=== PATIENT | male | born 1965 | race Caucasian/White ===

== ENCOUNTER 2023-09-05 22:48 | Inpatient (IN) | payer MEDICARE, OTHER, SELFPAY ==
[2023-09-05 19:23] VITALS: BP 147/80; BMI 25.4
[2023-09-05 19:45] LABS: % Basophils 0.6 % (0-2); % Immature Granulocytes 0.2 % (0-0.5); % Lymphocytes 7.2 % (20.5-51.1); % Monocytes 10.7 % (1.7-9.3); % Neutrophils 75.3 % (42.2-75.2); Absolute Eosinophils 0.3 10^3/uL (0-0.7); Absolute Lymphocytes 0.3 10^3/uL (1.2-3.4); Absolute Monocytes 0.5 10^3/uL (0.1-0.6); Absolute Neutrophils 3.5 10^3/uL (1.4-6.5); Hematocrit 24.2 % (39.0-52.0); Hemoglobin 7.9 g/dL (13.0-18.0); Mean Corp Hgb Conc. 32.6 g/dL (33.0-37.0); Mean Corpuscular Hgb 30.3 pg (27.0-31.0); Mean Corpuscular Volume 92.7 fL (80.0-94.0); Mean Platelet Volume 10.6 fL (7.4-10.4); Nucleated Red Blood Cells % 0 % (-); Platelet Count 151 10^3/uL (130-400); Red Blood Cell Count 2.61 10^6/uL (4.70-6.10); Red Cell Dist. Width 14.1 % (11.5-14.5); White Blood Cell Count 4.7 10^3/uL (4.8-10.8)
[2023-09-05 20:04] LABS: ALT (SGPT) 33 U/L (0-50); AST (SGOT) 71 U/L (17-59); Albumin 3.6 g/dl (3.5-5.0); Alkaline Phosphatase 785 U/L (38-126); Blood Urea Nitrogen 44 mg/dl (9-20); Calcium 4.7 mg/dl (8.4-10.2); Carbon Dioxide 24 mmol/L (22-30); Chloride 105 mmol/L (98-107); Estimated Creatinine Clearance 26 ml/min; Glucose 112 mg/dl (70-99); Lipase 35 U/L (23-300); Magnesium 1.3 mg/dl (1.6-2.3); Potassium 4.7 mmol/L (3.5-5.1); Sodium 135 mmol/L (135-145); Total Bilirubin 0.7 mg/dl (0.2-1.3); Total Protein 6.1 g/dl (6.3-8.2); eGFR 21.47
--- NOTE | 2023-09-05 20:55 | ED.GENMED ---
History of Present Illness
General
Chief Complaint: Abnormal Lab Value
Source: patient
Exam Limitations: none
Time Seen by Provider: 09/05/23 20:28
Travel History
Have you had any contact with someone who has COVID-19?: No
Do you have any symptoms of coronavirus? Fever > 100 degrees, chills, cough, shortness of breath, sore throat, loss of taste or smell, muscle aches, or headache?: No
History of Present Illness
History of Present Illness:
58-year-old male with a history of chronic kidney disease, cirrhosis, portal vein thrombosis, CHF, hypertension who presents with abnormal labs. He was told to come the emergency department due to severe hypocalcemia. Patient states he is not on
dialysis but he is being checked for placement of a fistula. Otherwise patient offers no current complaints.
Past History
Past History
ED Past Medical History: HTN, Psychiatric (Anxiety), Other (TRAVIS cirrhosis, hepatic encephalopathy, portal hypertension, ascites, esophageal varices status post banding, chronic right-sided abdominal pain on pain management, portal vein thrombosis,
nonocclusive SMV thrombus,) and Other (Chronic abd pain, Chronic renal failure, Anemia)
ED Past Surgical History: Appendectomy, Orthopedic (Right leg surgery, Right shoulder surgery, ) and Other (Hernia repair X 3, Liver Transplant, Subdural hematoma with surgery)
Social History
Tobacco: Former smoker
Alcohol: None
Drug: None and Marijuana
Personal:
Living: with family
Employment: Not employed
Family History
Family History: Other
Phy Exam
Physical Exam
Physical Exam:
CONSTITUTIONAL Patient alert and oriented to person, place and time. Well-appearing. Vital signs reviewed.
HEAD atraumatic, normocephalic.
EYES eyelids normal to inspection, Pupils equally round and reactive to light, Extraocular muscles intact, Conjunctiva normal, Sclera normal.
NECK normal range of motion, Trachea midline, no jugular venous distention.
RESPIRATORY CHEST No respiratory distress noted, Chest expansion equal, Bilateral breath sounds clear.
CARDIOVASCULAR regular rate and rhythm, Heart sounds normal.
ABDOMEN abdomen nontender, Bowel sounds normal. No distention.
BACK normal inspection, no obvious deformities
UPPER EXTREMITY range of motion normal, Motor strength normal, no cyanosis, no edema.
LOWER EXTREMITY range of motion normal, Motor strength normal, no cyanosis, bilateral left greater than right edema (patient states he has been evaluated by ultrasound of the left lower extremity and unknown as to why it is more swollen than the
right).
NEURO Speech normal, No focal motor deficits, [place] coma scale 15, Memory normal, Cranial Nerves intact to screening exam.
SKIN skin warm, dry, and normal in color.
PSYCHIATRIC patient oriented to person place and time, Normal affect.
Course
Orders/Labs/Results
Orders:
Orders
09/05/23 Breakfast
Regular
At Your Request: Full Participation
Does patient need a safe tray?: No
Fluid Restriction: 1440 mL/day (48 oz)
09/05/23 19:27
EKG [Electrocardiogram (*1)] Urgent
Reason for Study: Vertigo / Dizzy
EKG- Treatment ONCE
09/05/23 19:35
Complete Blood Count/With Diff Urgent
Comprehensive Metabolic Panel Urgent
Ferritin Routine
Comment: ADD ON
Folate Routine
Comment: ADD ON
Iron Urgent
Comment: ADD ON
Lipase Urgent
Magnesium Urgent
Total Iron Binding Urgent
Comment: ADD ON
Vitamin B12 Routine
Comment: ADD ON
09/05/23 20:53
Calcium Gluconate IV [Calcium Gluconate 10% 10 ml] 4.65 meq IV NOW STA
Magnesium Oxide 1,000 mg PO NOW STA
09/05/23 21:49
Oxycodone Controlled Release [Oxycontin (Controlled Release)] 20 mg PO NOW STA
09/05/23 22:02
Calcium Gluconate 4,000 mg 0.9% Sodium Chloride 250 ml [Nss] 250 ml IV ONCE
09/05/23 22:13
Admit/Transfer Patient As Directed
Co-Sign Provider:
Level of Care: Inpatient admission
Assign to:: IMU- Intermediate Care
Physician / Group: Fidencio
Diagnosis: Hypocalcemia
Reason for Hospitalization: calcium replacement
Expected length of stay greater than two midnights?: Yes
ELOS- Estimated Length of Stay in days: 3
I certify the patient meets the requirements for IP care: Yes
09/05/23 22:21
Magnesium Sulfate 4 Gram/100Ml [Magnesium Sulfate] 4 gram in 100 ml IV NOW
09/05/23 22:33
Code Status As Directed
Resuscitation Status: Do not resuscitate
Reached after discussion with pt or family/Healthcare POA: Yes
DNR Bracelet Application ONCE
09/05/23 22:34
Add On- LAB Routine
Tests Added?: iron, ferritin, tibc, folate, vit b12
09/05/23 23:41
Acetaminophen [Tylenol] 650 mg PO Q4HPRN PRN
09/05/23 23:41
NEPHROLOGY CONSULT Routine
Consulting Provider: Aneesh Martin V.
Was physician already notified: Yes
24 Hour Urine Calcium Routine
Activity As Directed
Activity Level: Out of Bed-Early Mobility
With Assistance
I&O [Intake/ Output] As Directed
Frequency: q12h
Pneumatic Compression Sleeves As Directed
Type: Knee high
Vital Signs As Directed
Frequency: Per unit guidelines
Weight As Directed
Frequency: Daily
DX Deep Vein Thrombosis Video Routine
09/06/23 00:41
Oxycodone [Roxicodone] 10 mg PO Q6H PRN
09/06/23 01:00
Carvedilol [Coreg] 6.25 mg PO Q12
Clonazepam [Klonopin] 0.5 mg PO Q12
HydrALAZINE [Apresoline] 50 mg PO Q8
Oxcarbazepine [Trileptal] 225 mg PO Q12
09/06/23 04:00
CBC/No Diff [Complete Blood Count/No Diff] Routine
Ionized Calcium Routine
Magnesium Routine
PTH [Intact PTH Includes Calcium] Routine
Phosphorus Routine
Tacrolimus (Prograft - FK506) [S] Routine
Vitamin D 1,25 Dihydroxy [S] Routine
Vitamin D, 25-OH Routine
09/06/23 06:00
ECG [Electrocardiogram (*1)] IN AM
Reason for Study: QTc Monitoring
09/06/23 08:00
Calcium Acetate [Phoslo] 1,334 mg PO TID
Calcium Carbonate [Oscal Rayray 500] 2,000 mg PO BID
ISOSORBIDE DInitrate [Isordil] 20 mg PO BID@0800,1800
Magnesium Oxide 500 mg PO BID
Oxycodone Controlled Release [Oxycontin (Controlled Release)] 20 mg PO BID
Torsemide [Demadex] 60 mg PO BID@0800,1500
Ursodiol [Actigall] 300 mg PO TID
tacrolimus [Envarsus XR] 0 mg PO DAILY
09/06/23 15:00
Calcitriol [Rocaltrol] 0.5 mcg PO DAILY@1500
09/06/23 22:00
Duloxetine Delayed Release [Cymbalta Delayed Release] 30 mg PO HS
09/12/23 10:00
Ergocalciferol [Drisdol (Vitamin D2)] 50,000 units PO WE@1000
Abnormal Lab Results
09/05/23
19:35
WBC 4.7 L 10^3/uL
(4.8-10.8)
RBC 2.61 L 10^6/uL
(4.70-6.10)
Hgb 7.9 L g/dL
(13.0-18.0)
Hct 24.2 L %
(39.0-52.0)
MCHC 32.6 L g/dL
(33.0-37.0)
MPV 10.6 H fL
(7.4-10.4)
Absolute Lymphs (auto) 0.3 L 10^3/uL
(1.2-3.4)
Neutrophils % 75.3 H %
(42.2-75.2)
Lymphocytes % 7.2 L %
(20.5-51.1)
Monocytes % 10.7 H %
(1.7-9.3)
BUN 44 H mg/dl
(9-20)
Creatinine 3.2 H mg/dL
(0.7-1.3)
Glucose 112 H mg/dl
(70-99)
Calcium 4.7 L* mg/dl
(8.4-10.2)
Magnesium 1.3 L mg/dl
(1.6-2.3)
TIBC 241 L ug/dl
(261-462)
AST 71 H U/L
(17-59)
Alkaline Phosphatase 785 H U/L
(38-126)
Total Protein 6.1 L g/dl
(6.3-8.2)
09/05/23 19:35
09/05/23 19:35
Vital Signs
Initial and Last Documented VS:
Initial Vital Signs
Temp Pulse Resp BP Pulse Ox
98 F 74 16 147/80 99
09/05/23 19:23 09/05/23 19:23 09/05/23 19:23 09/05/23 19:23 09/05/23 19:23
Last Documented Vital Signs
Temp Pulse Resp BP Pulse Ox
97.8 F 75 15 142/86 94
09/06/23 02:52 09/06/23 02:00 09/06/23 02:00 09/06/23 02:00 09/06/23 02:00
MDM/Problems Addressed
MDM/Problems Addressed:
Hypomagnesemia, hypocalcemia, prolonged QT
*Pulse Oximetry
Patient hypoxic: no
*EKG
Interpreted by ED Provider?: Yes
Interpretation: abnormal
Rhythm: sinus
Interval: long QT
Ischemia: non-specific ST changes
*Finished Hardware Erector Interpretation
Rate: normal
Interpretation: normal
Rhythm: sinus
*Critical Care Note
Total Time (30-74mins, 75-104mins- exclusive of procedures): 35 minutes
Data Reviewed
Review of Other/Old Records Reveals: Progress Notes and Discharge Summary (Discharge summary from February 2023)
Source: patient
Patient Management
Discussion with other providers: Hospitalist
Escalation/DeEscalation of care consider admission/obs:
58-year-old male with chronic kidney and liver disease who presents with hypocalcemia. Found to be hypomagnesemic as well. Replace potassium, replace magnesium, monitor on telemetry and admit
ED Attending Note
-
Portions of this chart may have been created with voice recognition software.� Occasional wrong word or��sound alike� substitutions may have occurred due to the inherent limitations of voice recognition software.
Discharge Plan
Departure
Patient Disposition: Admit
Date of Disposition: 09/05/23
Time of Disposition: 20:55
Admit to: Telemetry
Presentation/result/management discussed w/ accepting MD/DO: Hospitalist
Discharge Problem:
severe hypocalcemia, Prolonged QT interval, Hypomagnesemia
Interventions
Interventions:
*Risk Screen - Suicide Last Done: 09/05/23 23:54
*General Assessment Last Done: 09/05/23 22:43
*Neglect/Abuse Screening Last Done: 09/05/23 19:23
ED- Fall Risk Assessment Last Done: 09/05/23 22:43
*ED COVID-19 Vaccine History Last Done: 09/05/23 23:54
*Nursing Disposition Last Done: 09/05/23 23:51
Discharge Date and Time
Discharge Date/Time: 09/05/23 23:51
[2023-09-05 21:03] VITALS: BP 152/95
[2023-09-05] MEDS: CALCIUM GLUCONATE 10% 10 ML 4.65000000000000036 MEQ IV (21:17)
[2023-09-05] MEDS: MAGNESIUM OXIDE 1000 MG PO (21:17)
[2023-09-05] MEDS: OXYCONTIN (CONTROLLED RELEASE) 20 MG PO (21:57)
[2023-09-05 22:00] VITALS: BP 156/87
--- NOTE | 2023-09-05 22:33 | HPS.HSE ---
Addendum entered and electronically signed by Mariely Nicolas MD 09/05/23 22:44:
I saw and examined the patient.
The BEEF CATTLE GRAZIER's note was reviewed and I agree with the note.
Comment:
Mr. Seth Koch is a 58 yo man with hx CKDIV, hypocalcemia, HFpEF, essential HTN, anxiety who was sent to the ER for low calcium. He is asymptomatic. Patient was seen at [facility] for low calcium last week. Triage vitals stable. Labs
significant for Cr 3.2,Ca 4.7, Mag 1.3. On exam patient is in no acute distress, CV S1, S2 RRR, Chest clear. LE with edema b/l. QTc 543.
Case discussed with Dr. Martin on admission. He will be admitted to IMU. Ca and Mag repletion now; repeat labs at 4AM. Will add on PTH (known to be elevated), vitamin d-oh, phos. Will order 24 hour urine calcium testing. Formal renal consult
tomorrow.
Patient is DNR.
Original Note:
Family Physician
-
Family Physician: Kody Arellano
Chief Complaint
-
Abnormal Labs
History of Present Illness
Patient is a 58 y/o male past medical history of liver transplant, CKD IV, subdural hematoma, seizure disorder and chronic pain who presents with low calcium. Patient states he has been having weekly blood work done and today he was notified that
his calcium level was very low and told to go to the ED. Patient reports he was hospitalized at [facility] last week for low calcium, but states they did not tell him why his calcium level keeps going low.
Medical History
Past Medical History
Past Medical History: Reports Other
Additional Past Medical History:
Liver Failure s/p Transplant (2020)
Subdural Hematoma (January 2023)
CKD IV
Hypothyroidism
Chronic HF - Unknown Type
Chronic Back Pain / Chronic Opioid Dependence
Anxiety / Depression
Past Surgical History: Reports Other
Additional Past Surgical History:
Liver Transplant
Inguinal Herniorrhaphy
Social History
Tobacco: Former Smoker (Quit smoking 20 years ago. Approx 20 pack years total use.)
Alcohol: Former (Quit 8 years ago.)
Personal:
Living: With Family
Family History
Family History: Not pertinent
Allergies / Home Medications
Allergies reflects when Allergies were last updated in [facility].
Home Medications with original date entered in [facility]
Allergy/Medication List:
Allergies
Allergy/AdvReac Type Severity Reaction Status Date / Time
Fish Containing Products Allergy 'I get Verified 09/05/23 19:23
high'
morphine Allergy Itching Verified 09/05/23 19:23
rabeprazole [From Aciphex] Allergy Rash Verified 09/05/23 19:23
shellfish derived Allergy 'I get Verified 09/05/23 19:23
high'
tizanidine Allergy Unknown Verified 09/05/23 19:23
Home Medications
calcium carbonate 500 mg calcium (1,250 mg) tablet 2,000 mg PO BID Supplement 03/07/23
carvedilol 6.25 mg tablet 6.25 mg PO Q12H Blood Pressure 03/07/23
clonazepam 0.5 mg tablet (Klonopin) 0.5 mg PO Q12H Mental Health/Anxiety 03/07/23
hydralazine 50 mg tablet 50 mg PO Q8H Blood Pressure 03/07/23
isosorbide dinitrate 10 mg tablet 20 mg PO BID Heart Disease/Condition 03/07/23
mycophenolate mofetil 500 mg tablet (CellCept) 500 mg PO Q12H REJECTION 03/07/23
oxcarbazepine 150 mg tablet 225 mg PO Q12H Seizures 03/07/23
calcitriol 0.5 mcg capsule 0.5 mcg PO DAILY@1500 09/05/23
calcium acetate(phosphat bind) 667 mg capsule 1,334 mg PO TID 09/05/23
duloxetine 30 mg capsule,delayed release 30 mg PO HS 09/05/23
ergocalciferol (vitamin D2) 1,250 mcg (50,000 unit) capsule 1,250 mcg PO WE@1000 09/05/23
magnesium oxide 400 mg (241.3 mg magnesium) tablet 400 mg PO BID 09/05/23
oxycodone 10 mg tablet 10 mg PO Q6H PRN severe pain 09/05/23
oxycodone 20 mg tablet,crush resistant,extended release 12 hr (OxyContin) 20 mg PO BID 09/05/23
tacrolimus 4 mg tablet,extended release 24 hr (Envarsus XR) 12 mg PO DAILY 09/05/23
torsemide 20 mg tablet 60 mg PO BID@0800,1500 09/05/23
ursodiol 300 mg capsule 300 mg PO TID 09/05/23
Review of Systems
-
A 12 point ROS was completed and negative except as noted: Yes
Constitutional: Denies Fever or Chills
Respiratory: Denies Cough or Trouble Breathing
Cardiac: Denies Chest Pain or Palpitations
Abdomen/GI: Denies Abdominal Pain, Nausea, Vomiting, Diarrhea or Constipated
Musculoskeletal: Denies Muscle Pain or Muscle Stiffness
Neurological: Denies Weakness or Numbness
Physical Exam
Vital Signs
Vital Signs
Temp Pulse Resp BP Pulse Ox
98 F 72 18 152/95 96
09/05/23 19:23 09/05/23 21:45 09/05/23 21:45 09/05/23 21:03 09/05/23 21:45
Physical Exam
General: Comfortable and Conversant
HEENT: Anicteric and Moist mucous membranes
Respiratory: Clear and Non Labored Respirations
Cardiac: S1/S2 and Regular Rhythm
GI: Soft and Non Tender
Rectal: Deferred by Provider
Musculoskeletal: No Clubbing, No Cyanosis and Other (+1 pitting edema bilateral lower ext)
Skin: Warm and Dry
Neuro: Awake, Alert, Oriented and Nonfocal/grossly intact
Laboratory Results
-
09/05/23 19:35
09/05/23 19:35
Laboratory Results
Total Bilirubin 0.7 mg/dl (0.2-1.3) 09/05/23 19:35
AST 71 U/L (17-59) H 09/05/23 19:35
ALT 33 U/L (0-50) 09/05/23 19:35
Alkaline Phosphatase 785 U/L (38-126) H 09/05/23 19:35
Lipase 35 U/L (23-300) 09/05/23 19:35
Impression/Plan
-
Recurrent Hypocalcemia
-Reviewed labs from [facility] which showed PTH over 300
-Recheck PTH, and vitamin D
-Check 24 hour urine calcium
-Replace calcium IV
-Consult Nephrology
-Consider Endocrine consult
Prolonged QT secondary Hypocalcemia
-Avoid QT prolonging meds
-Recheck ECG in AM
Hypomagnesemia
-Replace magnesium
-Recheck level in AM
Essential Hypertension
-Continue carvedilol, and hydralazine
Liver Failure s/p Transplant (2020)
-Continue CellCept and Tacrolimus
-Continue Ursodiol
CKD Stage IV
-Monitor Is&Os and Daily Weights
-Continue torsemide
-Continue calcium acetate - Check phosphorus level
Normocytic Anemia
-Check iron, ferritin, tibc, folate, vit b12
Subdural Hematoma (January 2023) s/p Mallard Holes
Seizure Disorder
-Continue Keppra and oxcarbazepine
Chronic Back Pain / Chronic Opioid Dependence
-Continue OxyContin and oxycodone as prior to admission
Anxiety / Depression
-Continue clonazepam and duloxetine
DVT proph: SCDs
Code Status: DNR
[2023-09-05] MEDS: CALCIUM GLUCONATE 290 MG IV (22:56)
[2023-09-05 23:11] LABS: Iron 54 ug/dl (49-181)
[2023-09-05 23:23] LABS: Percent Saturation 22 % (20-50); Total Iron Binding Capacity 241 ug/dl (261-462)
[2023-09-05] MEDS: MAGNESIUM SULFATE 100 IV (23:25)
[2023-09-05 23:30] VITALS: BP 170/87
[2023-09-05 23:52] VITALS: BMI 27.0
[2023-09-06] VITALS (13 sets, daily range): BP systolic 135–170; BP diastolic 79–100; BMI 27.0; BMI 27.3
[2023-09-06 00:17] LABS: Folate 9.2 ng/ml (2.76-20); Vitamin B12 435 pg/ml (239-931)
[2023-09-06] MEDS: TRILEPTAL 225 MG PO ×3 (01:05→20:40)
[2023-09-06] MEDS: CELLCEPT 500 MG PO ×3 (01:05→20:39)
[2023-09-06] MEDS: COREG 6.25 MG PO ×3 (01:06→20:41)
[2023-09-06] MEDS: ROXICODONE 10 MG PO ×4 (01:07→22:42)
[2023-09-06] MEDS: APRESOLINE 50 MG PO ×4 (01:07→22:42)
[2023-09-06] MEDS: KLONOPIN 0.5 MG PO ×3 (01:07→20:41)
--- NOTE | 2023-09-06 01:39 | PTCARENOTE ---
Rec'd pt from ED. AAOx3, NSR. Pt states he likes to be addressed as 'Maxim'. BP increased, see VS. Pt states hx of HTN and states that his BP is likely increased d/t back pain. Pt reports he chronically takes oxycodone for pain. Upon assessment, pt
has b/l LE edema and L leg wounds. L leg appears red and has scattered scabbed wounds, pt states painful to the touch. B/l arms also have some smaller scattered scratched and scabs, which pt attributes to his cat. SaO2 observed 88-91% on RA while
awake, promptly decreased to 70s when pt fell asleep. 2L O2 placed with improvement to 94%. Pt denies sleep apnea hx. Pt expresses annoyance with monitoring equipment, stating 'I hate wires'. Education and orientation to unit provided. Pt expresses
desire for independence and privacy, stating that he wants to be able to ambulate to bathroom independently. This RN educated pt on possible effects of low magnesium and calcium and encourages pt to ring call flores if need arises to use bathroom.
Urinal placed at bedside. Call flores within reach. Bed alarm placed for pt safety.
--- NOTE | 2023-09-06 03:52 | PTCARENOTE ---
LLE wounds not dressed on admission, noted to be bleeding by pt. This RN applied adaptic, dry ABD pads, and kerlix to LLE wounds and educated pt to alert RN if dressing needs to be changed. Pt began complaining of pain in R wrist near site of IV. Pt
has small open wound above IV site. Wrist is slightly swollen and very tender to the touch. IVT assessed, removed IV per pt request. This RN placed small silicone border foam over open wound. LUE restriction placed per IVT, as pt explained impending
need to place HD access and explains that his doctors are in the process of assessing that arm for patency. Pt c/o itchiness all over, is seen scratching at his skin and opening old scabbed wounds. Pt requests allergy pill from RN. PROCESSING SUPERVISOR consulted
and ordered medicated lotion to relieve itching.
[2023-09-06 03:54] LABS: Ionized Calcium 0.69 mMOL/L (1.15-1.33)
[2023-09-06 04:01] LABS: Hemoglobin 8.1 g/dL (13.0-18.0); Mean Corp Hgb Conc. 32.4 g/dL (33.0-37.0); Mean Corpuscular Volume 92.6 fL (80.0-94.0); Mean Platelet Volume 10.9 fL (7.4-10.4); Platelet Count 170 10^3/uL (130-400); Red Cell Dist. Width 14.1 % (11.5-14.5); White Blood Cell Count 5.4 10^3/uL (4.8-10.8)
[2023-09-06 04:27] LABS: ALT (SGPT) 27 U/L (0-50); AST (SGOT) 50 U/L (17-59); Albumin 3.2 g/dl (3.5-5.0); Alkaline Phosphatase 718 U/L (38-126); Blood Urea Nitrogen 45 mg/dl (9-20); Calcium 5.4 mg/dl (8.4-10.2); Carbon Dioxide 23 mmol/L (22-30); Chloride 100 mmol/L (98-107); Direct Bilirubin 0.6 mg/dl (0.0-0.4); Estimated Creatinine Clearance 26 ml/min; Glucose 114 mg/dl (70-99); Magnesium 2.7 mg/dl (1.6-2.3); Phosphorus 4.9 mg/dl (2.5-4.5); Potassium 4.9 mmol/L (3.5-5.1); Sodium 136 mmol/L (135-145); Total Bilirubin 0.7 mg/dl (0.2-1.3); Total Protein 5.8 g/dl (6.3-8.2); eGFR 21.47
[2023-09-06 04:28] LABS: Vitamin D, 25-OH*** 39.7 ng/mL (30-80)
--- NOTE | 2023-09-06 04:43 | W.PN.UPDATE ---
Addendum entered and electronically signed by JAVON Silva 09/06/23 04:59:
Correction to below note, order placed for Calcium Gluconate 4gm IVPB now.
Original Note:
Update Note
Progress Note Update
Morning labs: Calcium 5.4, corrected to 6.0 with hypoalbuminemia. Order placed to replete with Magnesium Sulfate 4gm IVPB now.
[2023-09-06] MEDS: CALCIUM GLUCONATE IV (05:29)
[2023-09-06] MEDS: CALCIUM GLUCONATE 290 MG IV ×2 (05:38→12:11)
--- NOTE | 2023-09-06 05:47 | PTCARENOTE ---
Pt noncompliant with FR, continues to request aureliano [place]. Education provided and repeated regarding 1440 FR. Pt understands teaching and continues to insist on drinking more. Pt consumed 960mL since arriving to this unit.
--- NOTE | 2023-09-06 07:58 | W.PN.HOSP.TC ---
Today's Communication/Plan
-
replace IV calcium
check repeat level today at noon
Assessment / Plan
Assessment / Plan
58 y/o male past medical history of liver transplant, CKD IV, subdural hematoma, seizure disorder and chronic pain who presents with low calcium.� Patient states he has been having weekly blood work done and he was notified that his calcium level
was very low and told to go to the ED.� Patient reports he was hospitalized at [facility] last week for low calcium, but states they did not tell him why his calcium level keeps going low.�
A/P:
# Recurrent Hypocalcemia
Lab from [facility] showed PTH over 300
Follow recheck PTH here
25 OH vitamin D level WNL at 39.7
Check 24 hour urine calcium
Replace calcium IV
Consult Nephrology
Consider Endocrine consult
# Prolonged QT secondary Hypocalcemia
Avoid QT prolonging meds
Check daily ECG for QTc monitoring
# Hypomagnesemia
Replaced magnesium
# Essential Hypertension
Continue PACKER DRIED BEEF carvedilol, hydralazine, Imdur
# Liver Failure s/p Transplant (2020)
Continue CellCept and Tacrolimus
Continue Ursodiol
# CKD Stage IV
SCr stable at 3.2
Continue torsemide
Continue PACKER DRIED BEEF Phoslo and calcium carbonate
# Normocytic Anemia
Iron panel WNL, folate and vit b12 acceptable
# Subdural Hematoma (January 2023) s/p Albert Holes
# Seizure Disorder
Continue Keppra and oxcarbazepine
# Chronic Back Pain / Chronic Opioid Dependence
Continue OxyContin and oxycodone as prior to admission
# Anxiety / Depression
Continue clonazepam and duloxetine
DVT proph: SCDs
Code Status: DNR
DW RN
Anticipated Discharge: > 48 hours
Subjective/Interval History
-
Date of Service: September 06, 2023
Objective Data
-
Labs:
Laboratory Results
09/05/23 09/06/23
19:35 03:40
WBC 5.4
Hgb 8.1 L
Hct 25.0 L
Plt Count 170
Sodium 135 136
Potassium 4.7 4.9
Chloride 105 100
Carbon Dioxide 24 23
BUN 44 H 45 H
Creatinine 3.2 H 3.2 H
Glucose 112 H 114 H
Calcium 4.7 L* 5.4 L*
Total Bilirubin 0.7 0.7
AST 71 H 50
ALT 33 27
Alkaline Phosphatase 785 H 718 H
Vital Signs:
Vital Signs
Temp Pulse Resp BP Pulse Ox
36.6 C 86 16 157/97 93
09/06/23 07:29 09/06/23 06:42 09/06/23 06:42 09/06/23 06:42 09/06/23 06:42
I&O
09/05/23 09/06/23 09/07/23
06:59 06:59 06:59
Intake Total 1350 / 1350
Output Total 475 / 475
Balance 875 / 875
Review of Systems
-
All other systems: Reviewed and negative
Physical Exam
-
General: Well Developed, Well Nourished, No Apparent Distress, Comfortable and Conversant; Negative Respiratory Distress
HEENT: Normocephalic, Atraumatic, Nose Appears Normal and Ears Appear Normal; Negative Oxygen
Respiratory: Clear to Auscultation and Non Labored Respirations; Negative Accessory Resp Muscle Use
Cardiac: Regular Rhythm and S1/S2
GI: Soft, Nontender, Nondistended and Normal Bowel Sounds
Skin: Warm and Dry
Neuro: Awake, Alert, Oriented, AO x 3 and Nonfocal/Grossly Intact
Psych: Calm and Intact Judgement/Insight
Data Reviewed
-
Labs: Labs Reviewed by me
[2023-09-06] MEDS: NON-FORMULARY ITEM 12 MG PO (08:28)
[2023-09-06] MEDS: OXYCONTIN (CONTROLLED RELEASE) 20 MG PO ×2 (08:33→20:41)
[2023-09-06] MEDS: DEMADEX 60 MG PO ×2 (08:37→14:26)
[2023-09-06] MEDS: PHOSLO 1334 MG PO ×3 (08:37→22:41)
[2023-09-06] MEDS: ACTIGALL 300 MG PO ×3 (08:38→22:42)
[2023-09-06] MEDS: ISORDIL 20 MG PO ×2 (08:39→18:41)
[2023-09-06] MEDS: OSCAL CAL 500 2000 MG PO ×2 (08:51→20:39)
[2023-09-06] MEDS: CARMOL-10/UREA LOTION 1 APPLIC TOPICAL ×2 (08:51→20:43)
--- NOTE | 2023-09-06 09:46 | PTCARENOTE ---
Pt rec'd from power and recovery shift engineer, sitting on side of bed, Aox3 and annoyed with wires, fluid restriction, monitoring equipment. Stated he is only in the hospital because his PCP 'forced him to.' Pt wants to go home, says he 'has a lot going on' ...Dr. Hudson
at bedside, plan of care discussed. Pending downgrade after seen by nephrology. Meds as documented, pt asking for PRN Oxycodone 10 mg at this time, stating his chronic back pain was not relieved by his earlier 20 mg dose Oxycontin. See Mar for
details. Call flores in reach. Safe environment maintained.
[2023-09-06] MEDS: BENADRYL 25 MG PO ×2 (10:17→20:42)
--- NOTE | 2023-09-06 11:01 | W.CON.NEPH ---
Consultation
-
Date/Time Consultation Requested: 09/05/2023 10:30 PM
Date/Time Consultation Performed: 09/06/2023 1045 am
Requesting Provider: Becca
Performing Provider: [email or web address]
Reason for Consultation: Hypocalcemia CKD stage IV
Medical History
-
Chief Complaint: Hypocalcemia
History of Present Illness:
Patient is a 58 y/o male past medical history of liver transplant maintained on mycophenolate and tacrolimus, CKD IV with a baseline creatinine of approximately 3,, subdural hematoma, seizure disorder maintained on oxcarbazepine, and chronic pain
who presents with low calcium.� He is maintained on chronic diuretic therapy with torsemide 60 mg twice daily in the setting of his CKD. The patient states he has been having weekly blood work done and today he was notified that his calcium level
was very low and told to go to the ED.� Patient reports he was hospitalized at [facility] last week for low calcium, but states they did not tell him why his calcium level keeps going low.�
Past Medical History
CKD stage 4 (~3) Followed by Dr. Spears
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
Subdural hematoma January 2023 status post thuan hole
Hypertension, multidrug
Seizure disorder on oxcarbazepine
Hypothyroidism with normal TSH
Chronic back pain
Chronic opioid dependence
Anxiety/depression
Chronic heart failure, type unknown
Inguinal herniorrhaphy
Former smoker
Daily marijuana
Anemia
Secondary hyperparathyroidism
Social History
Tobacco: Former Smoker
Alcohol: Former
Family History
no CKD
Allergies / Home Medications
Allergy/AdvReac Type Severity Reaction Status Date / Time
Fish Containing Products Allergy 'I get Verified 09/05/23 19:23
high'
morphine Allergy Itching Verified 09/05/23 19:23
rabeprazole [From Aciphex] Allergy Rash Verified 09/05/23 19:23
shellfish derived Allergy 'I get Verified 09/05/23 19:23
high'
tizanidine Allergy Unknown Verified 09/05/23 19:23
Medication Instructions Recorded Confirmed Type
calcium carbonate 500 mg calcium 2,000 mg PO BID Supplement 03/07/23 09/05/23 History
(1,250 mg) tablet
carvedilol 6.25 mg tablet 6.25 mg PO Q12H Blood Pressure 03/07/23 09/05/23 History
clonazepam 0.5 mg tablet (Klonopin) 0.5 mg PO Q12H Mental 03/07/23 09/05/23 History
Health/Anxiety
hydralazine 50 mg tablet 50 mg PO Q8H Blood Pressure 03/07/23 09/05/23 History
isosorbide dinitrate 10 mg tablet 20 mg PO BID Heart 03/07/23 09/05/23 History
Disease/Condition
mycophenolate mofetil 500 mg 500 mg PO Q12H ANTI-REJECTION 03/07/23 09/05/23 History
tablet (CellCept)
oxcarbazepine 150 mg tablet 225 mg PO Q12H Seizures 03/07/23 09/05/23 History
calcitriol 0.5 mcg capsule 0.5 mcg PO DAILY@1500 Kidney 09/05/23 09/05/23 History
Disease
calcium acetate(phosphat bind) 667 1,334 mg PO TID Kidney Disease 09/05/23 09/05/23 History
mg capsule
duloxetine 30 mg capsule,delayed 30 mg PO HS Mental Health/Anxiety 09/05/23 09/05/23 History
release
ergocalciferol (vitamin D2) 1,250 1,250 mcg PO WE@1000 Supplement 09/05/23 09/05/23 History
mcg (50,000 unit) capsule
magnesium oxide 400 mg (241.3 mg 400 mg PO BID Electrolyte Repletion 09/05/23 09/05/23 History
magnesium) tablet
oxycodone 10 mg tablet 10 mg PO Q6H PRN severe pain 09/05/23 09/05/23 History
oxycodone 20 mg tablet,crush 20 mg PO BID Pain 09/05/23 09/05/23 History
resistant,extended release 12 hr
(OxyContin)
tacrolimus 4 mg tablet,extended 12 mg PO DAILY ANTI-REJECTION 09/05/23 09/05/23 History
release 24 hr (Envarsus XR)
torsemide 20 mg tablet 60 mg PO BID@0800,1500 Fluid 09/05/23 09/05/23 History
Retention/Swelling
ursodiol 300 mg capsule 300 mg PO TID GALLSTONE PREVENTION 09/05/23 09/05/23 History
Review of Systems
-
History Source: Patient
All other systems: Negative unless noted
Constitutional: No Symptoms
EENT: No Symptoms
Respiratory: No Symptoms
Cardiac: No Symptoms
Abdomen/GI: No Symptoms
: No Symptoms
Musculoskeletal: No Symptoms
Skin: Itching
Neurological: Other (left hand chronic tremor)
Endocrine: No Symptoms
Hematologic/Lymphatic: No Symptoms
Physical Exam
Vital Signs
Vital Signs
Temp Pulse Resp BP Pulse Ox
97.9 F 86 16 157/97 93
09/06/23 07:29 09/06/23 06:42 09/06/23 06:42 09/06/23 06:42 09/06/23 06:42
Lab Results
09/06/23 03:40
09/06/23 03:40
WBC 5.4 10^3/uL (4.8-10.8) 09/06/23 03:40
RBC 2.70 10^6/uL (4.70-6.10) L 09/06/23 03:40
Hgb 8.1 g/dL (13.0-18.0) L 09/06/23 03:40
Hct 25.0 % (39.0-52.0) L 09/06/23 03:40
Plt Count 170 10^3/uL (130-400) 09/06/23 03:40
Sodium 136 mmol/L (135-145) 09/06/23 03:40
Potassium 4.9 mmol/L (3.5-5.1) 09/06/23 03:40
Chloride 100 mmol/L (98-107) 09/06/23 03:40
Carbon Dioxide 23 mmol/L (22-30) 09/06/23 03:40
BUN 45 mg/dl (9-20) H 09/06/23 03:40
Creatinine 3.2 mg/dL (0.7-1.3) H 09/06/23 03:40
eGFR 21.47 09/06/23 03:40
Glucose 114 mg/dl (70-99) H 09/06/23 03:40
Calcium Cancelled 09/06/23 12:00
Phosphorus 4.9 mg/dl (2.5-4.5) H 09/06/23 03:40
Albumin 3.2 g/dl (3.5-5.0) L 09/06/23 03:40
Physical Exam
General: AOx3, No Distress and Nontoxic
HEENT: PERRL, EOMI, Anicteric, Conjunctivae Clear, Ear/Nose Intact, Oropharynx Clear/Moist, Dentition Intact, Neck Supple, Trachea Midline, No JVD and No Thyromegaly
Respiratory: Clear
Cardiac: Regular Rate/Rhythm
Breast: Deferred by me
Abdomen: Soft, Nontender, Nondistended, Normal Bowel Sounds and No Hepatosplenomegaly
Rectal: Deferred by Provider
Musculoskeletal: No Clubbing, No Cyanosis and Edema
Skin: Dry
Neuro: Nonfocal/Grossly Intact and Strength (normal)
Hematologic/Lymphatic: No Cervical Lymphadenopathy, No Submandibular Lymphadenopathy and No Supraclavicular Lymphadenopathy
Psych: Mood/afflect pleasant, Insight/judgement good and Appropriate
Assessment/Plan
-
Impression:
Hypocalcemia: Serum calcium 4.7 on admission
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
Edema
Proteinuria
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
Subdural hematoma January 2023 status post thuan hole
Hypertension, multidrug
Seizure disorder on oxcarbazepine
Hypothyroidism with normal TSH
Chronic back pain
Chronic opioid dependence
Anxiety/depression
Chronic heart failure, type unknown:torsemide 60mg BID
Inguinal herniorrhaphy
Former smoker
Daily marijuana
Plan:
Hypocalcemia:
-PTH has been persistently appropriately elevated in excess of 300 therefore not consistent with hypoparathyroidism, likely underlying secondary hyperparathyroidism present as well
-Concern for PTH resistance, ? etiology
-? secondary to diuretic induced calciuria
-magnesium levels are stable at 2.7
-Increase calcitriol to 1.0mcg daily and maintain oral calcium supplements
-Maintain ergocalciferol
-Continue IV calcium infusions
-Obtaining 24-hour urine calcium excretion
-May require endocrinology consultation
CKD 4:
-Creatinine remains at baseline 3.3 with stable electrolyte profile
-Volume status stable on current diuretic
-Blood pressure controlled on current antihypertensive
Anemia:
-Check iron stores and replete if
Data Reviewed
-
Medical Tests (Nuc Med, Echo etc): Other (EKG reviewed notable for sinus rhythm first-degree AV block with prolonged QT per report)
Labs: Labs Reviewed by me and Other
Old Records: Reviewed (Creatinine reviewed from February 2023 at 3.3 with calcium of 7.1)
[2023-09-06 11:26] LABS: Calcium 5.9 mg/dl (8.4-10.2)
--- NOTE | 2023-09-06 11:53 | PTCARENOTE ---
Pt's Ca level resulted at 5.9, Drs. Asher and Becca aware, orders rec'd. Pt updated. Asking to walk in hallway, placed on tele pack and ambulating PRN. Pt stated 'I just want to go home and ...it's time.' Emotional support provided.
--- NOTE | 2023-09-06 14:06 | PTCARENOTE ---
Fluid restriction lifted per attending. 24 hour urine started at 14:00. Pt amb in [place] PRN. Dr. Hudson wants to keep IMU level for now.
[2023-09-06] MEDS: ROCALTROL 1 MCG PO (14:26)
--- NOTE | 2023-09-06 15:21 | CM ---
Addendum entered by Bettie Braden RN 09/06/23 15:43:
Seen by wound care nurse.
Original Note:
Patient with Hx liver transplant, chronic pain with Dx Recurrent Hypocalcemia, Prolonged QT. Room air. PT Screen; No skilled PT needed.
Met with patient who resides with his in a split level house. The patient has been independent in ADLs and ambulation.
DME - RW, [facility]
VN - prior [facility]
SNF - none
PCP - Kody Arellano
Pharmacy - [facility]
Patient expressing that he feels down due to 7-8 years of ongoing medical issues, having constant spinal pain and not being able to enjoy doing sports and being active. He cannot consider that he can find enjoyment in doing a more sedentary
activity at home. He says he is on Oxycontin for pain and he is concerned how expensive it is. He already tried [facility] to compare pharmacy costs. He is receptive to having Palliative Care for additional support. The patient declined offer for
VN. He has spoken with a commissioned police officer on prior hospital admissions here and elsewhere, and is not feeling the need to talk with them again.
Dr Hudson made aware of referral to Palliative Care.
Plan home with referral to Palliative Care.
--- NOTE | 2023-09-06 15:21 | WOUNDNOTE ---
L GREAT TOENAIL BED (shadow in photo)
--- NOTE | 2023-09-06 15:22 | WOUNDNOTE ---
[employer] RN note: Patient admitted with hypocalcemia, LE edema. Patient lives with his .
See H&P for complete history.
PMH: CKD 4, HF, HTN, anxiety, 2020 liver transplant, subdural hematoma, s/p thuan hole 01/2023, seizure disorder, chronic back pain on opiates, anxiety/depression.
Wound Location and type/assessment: Patient admitted with: multiple dermal scratch/picking wounds on LE's, LUE. Mainly on LLE. Patient uses moisture lotion such as Carmol Urea which is in his room. +2 LE edema. Patient stated he does not like
compression wrap nor compression stockinet. +Palpable pedal pulses. L buttocks scratch job.
Appetite: good.
Pressure redistribution devices in place: Centrella max air. Patient is mobile.
Plan: Dressing changed LLE. Heels off bed with pillows. Updated RN Chachoa who will try hypoallergenic sheets. Patient mentioned scratching is in creased while in a hospital.
Will confirm orders with hospitalist.
Care plan to be updated and will follow as needed.
Note to case management requested for discharge: VN if patient agrees.
--- NOTE | 2023-09-06 15:31 | WOUNDNOTE ---
[facility] RN note: Patient stated he had a LE ultrasound done last June at [facility] which he states was negative for clot in le's.
[2023-09-06] MEDS: CYMBALTA DELAYED RELEASE 30 MG PO (22:42)
[2023-09-07 00:43] VITALS: BP 117/71
[2023-09-07] MEDS: ATARAX 25 MG PO (01:06)
[2023-09-07] MEDS: DESENEX/MITRAZOL/ZEASORB 1 APPLIC TOPICAL (01:07)
[2023-09-07 03:04] VITALS: BMI 27.7
[2023-09-07 03:07] VITALS: BP 167/95
[2023-09-07 04:17] LABS: Ionized Calcium 0.86 mMOL/L (1.15-1.33)
[2023-09-07 04:26] LABS: Hematocrit 21.7 % (39.0-52.0); Hemoglobin 7.1 g/dL (13.0-18.0); Mean Corp Hgb Conc. 32.7 g/dL (33.0-37.0); Mean Corpuscular Hgb 29.5 pg (27.0-31.0); Mean Platelet Volume 10.6 fL (7.4-10.4); Platelet Count 143 10^3/uL (130-400); Red Blood Cell Count 2.41 10^6/uL (4.70-6.10); Red Cell Dist. Width 13.8 % (11.5-14.5); White Blood Cell Count 3.6 10^3/uL (4.8-10.8)
[2023-09-07 04:55] LABS: Blood Urea Nitrogen 53 mg/dl (9-20); Calcium 6.7 mg/dl (8.4-10.2); Carbon Dioxide 23 mmol/L (22-30); Chloride 97 mmol/L (98-107); Estimated Creatinine Clearance 26 ml/min; Glucose 96 mg/dl (70-99); Potassium 5.2 mmol/L (3.5-5.1); Sodium 131 mmol/L (135-145); eGFR 21.47
--- NOTE | 2023-09-07 05:17 | W.PN.UPDATE ---
Update Note
Progress Note Update
Morning labs: Calcium 6.7, corrected to 7.3 with hypoalbuminemia. Order to replete with Calcium Gluconate 4gm IVPB 1x now.
[2023-09-07 05:44] VITALS: BP 155/121
[2023-09-07] MEDS: CALCIUM GLUCONATE 290 MG IV (06:20)
[2023-09-07] MEDS: NON-FORMULARY ITEM 12 MG PO (07:58)
[2023-09-07] MEDS: APRESOLINE 50 MG PO ×2 (07:59→15:19)
[2023-09-07 08:00] VITALS: BP 144/99
[2023-09-07] MEDS: KLONOPIN 0.5 MG PO (08:03)
[2023-09-07] MEDS: COREG 6.25 MG PO (08:03)
[2023-09-07] MEDS: OXYCONTIN (CONTROLLED RELEASE) 20 MG PO (08:03)
[2023-09-07] MEDS: CARMOL-10/UREA LOTION 1 APPLIC TOPICAL (08:04)
[2023-09-07] MEDS: PHOSLO 1334 MG PO ×2 (08:05→15:19)
[2023-09-07] MEDS: DEMADEX 60 MG PO ×2 (08:05→15:23)
[2023-09-07] MEDS: ACTIGALL 300 MG PO ×2 (08:06→15:19)
[2023-09-07] MEDS: TRILEPTAL 225 MG PO (08:06)
[2023-09-07] MEDS: CELLCEPT 500 MG PO (08:06)
[2023-09-07] MEDS: ISORDIL 20 MG PO (08:06)
[2023-09-07] MEDS: OSCAL CAL 500 2000 MG PO (08:06)
--- NOTE | 2023-09-07 08:52 | W.PN.HOSP.TC ---
Today's Communication/Plan
-
see plan above
Assessment / Plan
Assessment / Plan
58 y/o male past medical history of liver transplant, CKD IV, subdural hematoma, seizure disorder and chronic pain who presents with low calcium.� Patient states he has been having weekly blood work done and he was notified that his calcium level
was very low and told to go to the ED.� Patient reports he was hospitalized at [facility] last week for low calcium, but states they did not tell him why his calcium level keeps going low.�
A/P:
# Recurrent severe symptomatic hypocalcemia
Lab from [facility] showed PTH over 300
Follow recheck PTH here
25 OH vitamin D level WNL at 39.7
Check 24 hour urine calcium
Replace calcium IV
Consult endocrine
Elevated PTH rules out hypoparathyroidism but cannot rule out pseudo hypoparathyroidism with PTH resistance.
Await vitamin D 125 dihydroxy levels which could be causing a secondary hyperparathyroidism. Currently on calcitriol the dose of which is increased to 1 mcg daily.
Another cause is hypomagnesemia and in turn causing hypocalcemia which is now repleted. He should be on magnesium supplementation on discharge.
Do not understand increased alkaline phosphatase and bony pain. Alkaline phosphatase is quite high at 785. Check a GGTP and also bone specific alkaline phosphatase. Since his pain is localized to the left leg obtain x-ray of the tib-fib left leg.
# Prolonged QT secondary Hypocalcemia
Avoid QT prolonging meds
Check daily ECG for QTc monitoring
# Hypomagnesemia
Replaced magnesium
# Essential Hypertension
Continue WELDING MACHINE OPERATOR RESISTANCE carvedilol, hydralazine, Imdur
# Liver Failure s/p Transplant (2020)
Continue CellCept and Tacrolimus
Continue Ursodiol
# CKD Stage IV
SCr stable at 3.2
Continue torsemide
Continue WELDING MACHINE OPERATOR RESISTANCE Phoslo and calcium carbonate
# Normocytic Anemia
Iron panel WNL, folate and vit b12 acceptable
# Subdural Hematoma (January 2023) s/p [place] Holes
# Seizure Disorder
Continue Keppra and oxcarbazepine
# Chronic Back Pain / Chronic Opioid Dependence
Continue OxyContin and oxycodone as prior to admission
# Anxiety / Depression
Continue clonazepam and duloxetine
DVT proph: SCDs
Code Status: DNR
tx to tele
Anticipated Discharge: Within 24 hours
Subjective/Interval History
-
Date of Service: September 07, 2023
Voices no paresthesias tingling numbness in the arms or legs.
His bone pain is localized to left leg which is also swollen. He has a chronic back pain from previous injury. No other areas of bone pain evident.
Objective Data
-
Labs:
Laboratory Results
09/07/23
03:58
WBC 3.6 L
Hgb 7.1 L
Hct 21.7 L
Plt Count 143
Sodium 131 L
Potassium 5.2 H
Chloride 97 L
Carbon Dioxide 23
BUN 53 H
Creatinine 3.2 H
Glucose 96
Calcium 6.7 L*
Vital Signs:
Vital Signs
Temp Pulse Resp BP Pulse Ox
98.3 F 75 23 144/99 96
09/07/23 07:55 09/07/23 08:05 09/06/23 10:25 09/07/23 08:05 09/06/23 23:39
I&O
09/06/23 09/07/23 09/08/23
06:59 06:59 06:59
Intake Total 1350 / 1350 2190 / 2190
Output Total 475 / 475 3010 / 3010
Balance 875 / 875 -820 / -820
Review of Systems
-
Constitutional: Denies Fever
EENT: Denies Sore Throat
Respiratory: Denies Trouble Breathing
Cardiac: Denies Chest Pain
Abdomen/GI: Denies Abdominal Pain, Nausea or Vomiting
Neuro: Denies Dizzy
Physical Exam
-
General: No Apparent Distress
HEENT: Moist Mucous Membranes
Respiratory: Clear to Auscultation
Cardiac: Regular Rhythm and S1/S2
GI: Soft
Neuro: AO x 3; Negative Tremors
Psych: Calm
Data Reviewed
-
Labs: Labs Reviewed by me
[2023-09-07 09:36] LABS: GGTP 510 U/L (15-73)
--- NOTE | 2023-09-07 10:20 | PTCARENOTE ---
Patient received this am AAOx3. Reports of generalized body aches, given oral scheduled pain medication. Patient lung sounds clear on RA. Patient with B/L LE edema +1-+2. Patient reports itchiness throughout. Patient walking throughout unit. Reports
he was told he is going home. Labs ordered and drawn this am.
--- NOTE | 2023-09-07 12:14 | CM ---
met with patient at bedside.patient's calcium level is 6.7-given iv ca today.xray left tibia/fibula with no fx or dislocation.patient is stable for tx to tele.
plan :dc home with palliative care.
[2023-09-07] MEDS: ROCALTROL 1 MCG PO (15:19)
[2023-09-07] MEDS: ROXICODONE 10 MG PO (15:28)
[2023-09-07 16:00] LABS: Urine Calcium 4.4 mg/dl
[2023-09-07 16:17] LABS: 24 Hour Urine Calcium 140.8 mg/day; 24 Hour Urine Total Volume 3200 ml
--- NOTE | 2023-09-07 16:28 | W.DS.TRANS ---
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
-
Discharge Instructions:
Sleep Apnea Risk High
Discharge Diagnosis/Procedures Recurrent hypocalcemia
Diet 2 Gram Sodium
Activity As tolerated
Driving Restrictions As prior to admission
Bathing Restrictions None
Blood Work BMP blood work in 1 week time. Arrange through
PCP
Specialty Instructions Weigh Daily
Instructions:
Stand-Alone Forms:
Changes to Home Medications: Yes
Discharge Medications:
DC Medications w/original date entered in [employer]
calcium carbonate 500 mg calcium (1,250 mg) tablet 2,000 mg PO BID Supplement 03/07/23
carvedilol 6.25 mg tablet 6.25 mg PO Q12H Blood Pressure 03/07/23
clonazepam 0.5 mg tablet (Klonopin) 0.5 mg PO Q12H Mental Health/Anxiety 03/07/23
hydralazine 50 mg tablet 50 mg PO Q8H Blood Pressure 03/07/23
isosorbide dinitrate 10 mg tablet 20 mg PO BID Heart Disease/Condition 03/07/23
mycophenolate mofetil 500 mg tablet (CellCept) 500 mg PO Q12H ANTI-REJECTION 03/07/23
oxcarbazepine 150 mg tablet 225 mg PO Q12H Seizures 03/07/23
calcium acetate(phosphat bind) 667 mg capsule 1,334 mg PO TID Kidney Disease 09/05/23
duloxetine 30 mg capsule,delayed release 30 mg PO HS Mental Health/Anxiety 09/05/23
ergocalciferol (vitamin D2) 1,250 mcg (50,000 unit) capsule 1,250 mcg PO WE@1000 Supplement 09/05/23
magnesium oxide 400 mg (241.3 mg magnesium) tablet 400 mg PO BID Electrolyte Repletion 09/05/23
oxycodone 10 mg tablet 10 mg PO Q6H PRN severe pain 09/05/23
oxycodone 20 mg tablet,crush resistant,extended release 12 hr (OxyContin) 20 mg PO BID Pain 09/05/23
tacrolimus 4 mg tablet,extended release 24 hr (Envarsus XR) 12 mg PO DAILY ANTI-REJECTION 09/05/23
torsemide 20 mg tablet 60 mg PO BID@0800,1500 Fluid Retention/Swelling 09/05/23
ursodiol 300 mg capsule 300 mg PO TID GALLSTONE PREVENTION 09/05/23
calcitriol 0.5 mcg capsule 0.5 mcg PO BID Kidney Disease #60 caps 09/07/23
Home Medication Changes
Calcitriol dose increased to twice a day
Pending Results: No
[2023-09-07] MEDS: BENADRYL 25 MG PO (16:38)
--- NOTE | 2023-09-07 16:38 | W.PN.NEPH.PH ---
Today's Communication / Plan
-
- likely d/c with further workup as outpatient
Assessment/Plan
-
Impression:
Hypocalcemia: Serum calcium 4.7 on admission
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
Edema
Proteinuria
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
Subdural hematoma January 2023 status post thuan hole
Hypertension, multidrug
Seizure disorder on oxcarbazepine
Hypothyroidism with normal TSH
Chronic back pain
Chronic opioid dependence
Anxiety/depression
Chronic heart failure, type unknown:torsemide 60mg BID
Inguinal herniorrhaphy
Former smoker
Daily marijuana
Plan:
Hypocalcemia:
-PTH has been persistently appropriately elevated in excess of 300 therefore not consistent with hypoparathyroidism, likely underlying secondary hyperparathyroidism present as well
-Concern for PTH resistance, 2/2 to hypomag??
-magnesium levels are stable at 2.7 (on presentation 1.3)
-Increase calcitriol to 1.0mcg daily and maintain oral calcium supplements
-Maintain ergocalciferol
-please d/c on magnesium supplemetation
-24 hour calcium excretion low/normal
-May require endocrinology consultation as outpatient
CKD 4:
-Creatinine remains at baseline 3.3 with stable electrolyte profile
- noted to have elevated K/L ratio, will need to f/u with nephrology outpatient
-Volume status stable on current diuretic
-Blood pressure controlled on current antihypertensive
Anemia:
- Hgb down to 7.1
-
-
Date of Service: September 07, 2023
CC / HPI / ROS
-
Chief Complaint:
hypocalcemia
History of Present Illness:
CKD stage 4 2/2 to CNI
liver txp 2/2 to TRAVIS
chronic back pain
HTN
Review of Systems:
- calcium improved today
- plan for d/c home
Labs
-
Labs:
WBC 3.6 10^3/uL (4.8-10.8) L 09/07/23 03:58
RBC 2.41 10^6/uL (4.70-6.10) L 09/07/23 03:58
Hgb 7.1 g/dL (13.0-18.0) L 09/07/23 03:58
Hct 21.7 % (39.0-52.0) L 09/07/23 03:58
Plt Count 143 10^3/uL (130-400) 09/07/23 03:58
Sodium 131 mmol/L (135-145) L 09/07/23 03:58
Potassium 5.2 mmol/L (3.5-5.1) H 09/07/23 03:58
Chloride 97 mmol/L (98-107) L 09/07/23 03:58
Carbon Dioxide 23 mmol/L (22-30) 09/07/23 03:58
BUN 53 mg/dl (9-20) H 09/07/23 03:58
Creatinine 3.2 mg/dL (0.7-1.3) H 09/07/23 03:58
eGFR 21.47 09/07/23 03:58
Glucose 96 mg/dl (70-99) 09/07/23 03:58
Calcium 6.7 mg/dl (8.4-10.2) L* 09/07/23 03:58
Phosphorus 4.9 mg/dl (2.5-4.5) H 09/06/23 03:40
Albumin 3.2 g/dl (3.5-5.0) L 09/06/23 03:40
Physical Exam
-
Vital Signs:
Vital Signs
Temp Pulse Resp BP Pulse Ox
98.5 F 66 23 145/78 96
09/07/23 15:40 09/07/23 15:23 09/06/23 10:25 09/07/23 15:23 09/06/23 23:39
Cardiovascular:: Regular rate and rhythm
Respiratory:: Bilateral: Coarse
Lung Excursion:: Normal
Abdomen:: Nontender and Soft
Bowel Sounds:: Normal
Extremity Edema:: +1: Bilateral:
[place] Catheter: No
[2023-09-08 03:10] LABS: Vitamin D 1,25 Dihydroxy 42.3 pg/mL (19.9-79.3)
[2023-09-08 09:39] LABS: Intact PTH 383.3 pg/ml (13.6-85.8)
[2023-09-08 15:38] LABS: Tacrolimus (Prograft - FK506) 5.8 ng/mL
[2023-09-11 10:50] LABS: Albumin 3.56 g/dL (3.75-5.01); Alpha 1 Globulin 0.31 g/dL (0.19-0.46); SPEP IFE Reflex IFE Done; Total Protein-Electrophoresis 5.9 g/dL (6.3-8.2)
[2023-09-11 10:51] LABS: IgG 903 mg/dL (768-1632)
[2023-09-11 10:52] LABS: IgA 256 mg/dL (68-408); IgM 60 mg/dL (35-263)
[2023-09-12 04:32] LABS: 24 Hour Urine Total Volume 3200 mL; Total Protein, Urine 1157 mg/d (<=150); Ur Free Lambda Excretion/day 45.31 mg/d; Urine Collection Length 24 hr; Urine Free Kappa Excretion/Day 362.46 mg/d; Urine Free Kappa Light Chains 113.27 mg/L (0.00-32.90); Urine Free Lambda Light Chains 14.16 mg/L (0.00-3.79)
== END 2023-09-07 18:06 | disposition home or self-care (01) | DRG 641 ==
LOC: IMU 22:48
PROVIDERS: Internal Medicine; Physician Assistant Medical; Student in an Organized Health Care Education/Training Program; ADMITTING PHYSICIAN Student in an Organized Health Care Education/Training Program; ATTENDING PHYSICIAN Internal Medicine; CONSULT PHYSICIAN Internal Medicine Endocrinology, Diabetes & Metabolism; CONSULT PHYSICIAN Specialist; EMERGENCY PHYSICIAN Emergency Medicine; FAMILY PHYSICIAN Internal Medicine
DX: E83.51 Hypocalcemia (principal); N18.4 Chronic kidney disease, stage 4 (severe); F11.20 Opioid dependence, uncomplicated; N25.81 Secondary hyperparathyroidism of renal origin; I50.32 Chronic diastolic (congestive) heart failure; I13.0 Hypertensive heart and chronic kidney disease with heart failure and stage 1 through stage 4 chronic kidney disease, or unspecified chronic kidney disease; Z94.4 Liver transplant status; Z66 Do not resuscitate; E83.42 Hypomagnesemia; Z87.891 Personal history of nicotine dependence; D64.9 Anemia, unspecified; G40.909 Epilepsy, unspecified, not intractable, without status epilepticus; G89.29 Other chronic pain; F41.9 Anxiety disorder, unspecified; F32.A Depression, unspecified; E03.9 Hypothyroidism, unspecified
CPT/HCPCS: 73590; 80048; 80053; 80197; 81050; 82248; 82306; 82310; 82330; 82340; 82607; 82652; 82728; 82746; 82784; 82977; 83521; 83540; 83550; 83690; 83735; 83970; 84075; 84100; 84155; 84156; 84165; 85025; 85027; 86334; 86335; 93005; 96365; 96366; 96375; 99291

== ENCOUNTER 2023-11-05 20:29 | Emergency (ER) | payer MEDICARE, OTHER, SELFPAY ==
[2023-11-05 20:31] VITALS: BP 180/94
[2023-11-05 20:44] LABS: % Basophils 0.6 % (0-2); % Eosinophils 5.4 % (0-6); % Immature Granulocytes 0.2 % (0-0.5); % Lymphocytes 6.9 % (20.5-51.1); % Monocytes 11.7 % (1.7-9.3); % Neutrophils 75.2 % (42.2-75.2); Absolute Eosinophils 0.3 10^3/uL (0-0.7); Absolute Lymphocytes 0.3 10^3/uL (1.2-3.4); Absolute Monocytes 0.5 10^3/uL (0.1-0.6); Absolute Neutrophils 3.5 10^3/uL (1.4-6.5); Hematocrit 26.7 % (39.0-52.0); Mean Corp Hgb Conc. 33.7 g/dL (33.0-37.0); Mean Corpuscular Hgb 29.3 pg (27.0-31.0); Mean Platelet Volume 10.3 fL (7.4-10.4); Nucleated Red Blood Cells % 0 % (-); Platelet Count 188 10^3/uL (130-400); Red Blood Cell Count 3.07 10^6/uL (4.70-6.10); Red Cell Dist. Width 13.7 % (11.5-14.5); White Blood Cell Count 4.6 10^3/uL (4.8-10.8)
[2023-11-05 22:00] LABS: ALT (SGPT) 28 U/L (0-50); AST (SGOT) 48 U/L (17-59); Albumin 4.4 g/dl (3.5-5.0); Alkaline Phosphatase 806 U/L (38-126); Blood Urea Nitrogen 65 mg/dl (9-20); Calcium 6.6 mg/dl (8.4-10.2); Carbon Dioxide 18 mmol/L (22-30); Chloride 102 mmol/L (98-107); Glucose 102 mg/dl (70-99); Sodium 134 mmol/L (135-145); Total Bilirubin 0.9 mg/dl (0.2-1.3); Total Protein 7.1 g/dl (6.3-8.2); eGFR 19.28
[2023-11-05 22:24] VITALS: BP 178/84
== END 2023-11-05 22:22 | disposition left against medical advice (07) ==
LOC: EMR 20:29
PROVIDERS: EMERGENCY PHYSICIAN Emergency Medicine
DX: R79.9 Abnormal finding of blood chemistry, unspecified (principal)
CPT/HCPCS: 99281; 80053; 85025; 93005

== ENCOUNTER 2024-02-25 02:36 | Inpatient (IN) | payer MEDICARE, OTHER, SELFPAY ==
[2024-02-24 21:01] VITALS: BMI 28.9
[2024-02-24 21:04] VITALS: BP 156/86
[2024-02-24 21:48] VITALS: BP 176/85
[2024-02-24 22:17] LABS: % Basophils 0.3 % (0-2); % Eosinophils 4.9 % (0-6); % Immature Granulocytes 0.5 % (0-0.5); % Lymphocytes 5.8 % (20.5-51.1); % Monocytes 13.7 % (1.7-9.3); % Neutrophils 74.8 % (42.2-75.2); Absolute Eosinophils 0.2 10^3/uL (0-0.7); Absolute Lymphocytes 0.2 10^3/uL (1.2-3.4); Absolute Monocytes 0.5 10^3/uL (0.1-0.6); Absolute Neutrophils 2.7 10^3/uL (1.4-6.5); Hemoglobin 7.1 g/dL (13.0-18.0); Mean Corp Hgb Conc. 33.6 g/dL (33.0-37.0); Mean Corpuscular Hgb 29.8 pg (27.0-31.0); Mean Corpuscular Volume 88.7 fL (80.0-94.0); Mean Platelet Volume 11.1 fL (7.4-10.4); Nucleated Red Blood Cells % 0 % (-); Platelet Count 150 10^3/uL (130-400); Red Blood Cell Count 2.38 10^6/uL (4.70-6.10); Red Cell Dist. Width 14.3 % (11.5-14.5); White Blood Cell Count 3.6 10^3/uL (4.8-10.8)
[2024-02-24 22:18] LABS: Hematocrit 21.1 % (39.0-52.0)
--- NOTE | 2024-02-24 22:24 | ED.GENMED ---
History of Present Illness
General
Chief Complaint: Extremity Pain (non-traumatic)
Source: patient
Exam Limitations: none
Time Seen by Provider: 02/24/24 21:53
History of Present Illness
History of Present Illness:
This is a 59 year old male that comes in with c/o left leg pain and swelling. States that he has pain and swelling in the left leg which started after they put in the left arm fistula. States that he was seen by the Doctor on the and they felt
everything was o. States that he has been feeling more SOB, slightly dizzy. States that he has vomited but this is normal for him. Denies any fever, chills, chest pain, abd pain, nausea, diarrhea, headache, urinary burning.
Past History
Past History
ED Past Medical History: CHF, HTN, Psychiatric (Anxiety), Other (TRAVIS cirrhosis, hepatic encephalopathy, portal hypertension, ascites, esophageal varices status post banding, chronic right-sided abdominal pain on pain management, portal vein
thrombosis, nonocclusive SMV thrombus,) and Other (Chronic abd pain, Chronic renal failure, Anemia)
ED Past Surgical History: Appendectomy, Orthopedic (Right leg surgery, Right shoulder surgery, Right hand surgery, ) and Other (Hernia repair X 3, Liver Transplant, Subdural hematoma with surgery, Left arm fistula, )
Social History
Tobacco: Former smoker
Alcohol: Former
Drug: None and Marijuana
Personal:
Living: with family
Employment: Not employed
Family History
Family History: Other
Review of Systems
Review of Systems
All Other Systems: ROS reviewed and negative except as documented in HPI and ROS
Constitutional: Reports no symptoms; Denies fever or chills
EENT: Reports no symptoms
Respiratory: Reports trouble breathing; Denies cough
Cardiac: Reports no symptoms; Denies chest pain
ABD/GI: Reports vomiting; Denies abdominal pain, nausea or diarrhea
: Reports no symptoms; Denies dysuria, frequency or urgency
Musculoskeletal: Reports edema (Left lower leg )
Skin: Reports other (Redness right lower leg)
Neurological: Reports dizzy; Denies headache
Psychiatric: Reports no symptoms
Phy Exam
General Physical Exam
General Presentation: no apparent distress
General age: appears stated age
General Skin: warm, dry and pale
General Habitus: normal
General Mental: alert
General Hydration: appears well hydrated
ENT Exam
ENT Exam: TM's normal, pharynx normal and neck supple
Eye Exam
Eye Exam: EOMI
Cardiovascular Exam
Cardiovascular Exam: regular rate/rhythm and normal peripheral pulses
Pulmonary Exam
Pulmonary Exam: lungs clear, no respiratory distress, no rales, chest non tender, no crackles, no rhonchi, no wheezing and no cough
Gastrointestinal Exam
Gastrointestinal Exam: normal bowel sounds, soft, no organomegaly, no pulsatile mass, non distended, tender (generalized tenderness ( feels full)) and other (Rectal exam. External hemorrhoids noted. Hem negative. )
Musculoskeletal Exam
Musculoskeletal Exam: edema (Pitting edema Bilaterally L>R, +2)
Skin Exam
Skin Exam: normal color, warm/dry, no petechia, redness (Left lower leg with scratch whitehead noted) and other (Left upper arm fistula site negative for any redness. Negative for Bruits or thrill. )
Psychiatric Exam
Psychiatric Exam: normal mood/affect
Course
Orders/Labs/Results
Orders:
Orders
02/24/24 22:04
Complete Blood Count/With Diff Urgent
NT-proBNP Urgent
Troponin I Urgent
Comment: ADD ON
02/24/24 22:21
HYDROmorphone [Dilaudid] 0.5 mg IV NOW STA
US Legs, Left [US Periph Venous LOWER Ext LT] Urgent
Comment:
Reason For Exam: Swelling Pain
02/24/24 22:25
Add On- LAB Urgent
Tests Added?: troponin
02/24/24 22:29
EKG [Electrocardiogram (*1)] Urgent
Reason for Study: Heart Failure, Left
02/24/24 22:30
EKG- Treatment ONCE
02/24/24 22:39
Type+Screen Urgent
Comprehensive Metabolic Panel Urgent
02/24/24 23:25
* Blood Bank Products Urgent
Blood Bank Products: *Packed RBC Leuko(PRBC's)
Quantity: 2
Transfuse Today: Yes
Reason: Anemia
IV Insert/Care/Rem.- Treatment PRN
02/24/24 23:27
Piperacillin/Tazo 3.375 Gram [Zosyn] 3.375 gram in 50 ml IV NOW
Abnormal Lab Results
02/24/24 02/24/24
22:04 22:39
WBC 3.6 L 10^3/uL
(4.8-10.8)
RBC 2.38 L 10^6/uL
(4.70-6.10)
Hgb 7.1 L g/dL
(13.0-18.0)
Hct 21.1 L %
(39.0-52.0)
MPV 11.1 H fL
(7.4-10.4)
Absolute Lymphs (auto) 0.2 L 10^3/uL
(1.2-3.4)
Lymphocytes % 5.8 L %
(20.5-51.1)
Monocytes % 13.7 H %
(1.7-9.3)
Sodium 134 L mmol/L
(135-145)
BUN 81 H mg/dl
(9-20)
Creatinine 3.9 H mg/dL
(0.7-1.3)
Glucose 130 H mg/dl
(70-99)
Calcium 6.0 L* mg/dl
(8.4-10.2)
Alkaline Phosphatase 675 H U/L
(38-126)
Total Protein 6.0 L g/dl
(6.3-8.2)
Crossmatch IS Only See Detail
02/24/24 22:04
02/24/24 22:39
Leukopenia, H/H low (Patient had a blood transfusion recently and Hgb was 9). Anemia. Chronic renal failure, Hyperglycemia, Hypocalcemia ( consistent with prior labs), Alk phos elevation. Troponin <0.012, Pro-BNP 6940
Vital Signs
Initial and Last Documented VS:
Initial Vital Signs
Temp Pulse Resp BP Pulse Ox
98.2 F 74 24 156/86 97
02/24/24 21:04 02/24/24 21:04 02/24/24 21:04 02/24/24 21:04 02/24/24 21:04
Last Documented Vital Signs
Temp Pulse Resp BP Pulse Ox
98.2 F 70 17 176/85 95
02/24/24 21:04 02/24/24 23:00 02/24/24 23:00 02/24/24 21:48 02/24/24 23:00
MDM/Problems Addressed
Differential Diagnosis Includes:
DVT, Cellulitis, Low Hgb.
MDM/Problems Addressed:
This is a 59 year old male that comes in with c/o swelling of the left leg. States that this started when they put in the Fistula on the left arm.
Will get labs, US and explained to patient that his Hgb is low. Patient was 9.0 on prior labs that was up from 7.1.
Chronic conditions affecting care: Kidney disease
Acute Exacerbation and/or Progression of Chronic Illness: Kidney disease
*Radiology
Radiology exam reviewed: other (US-Negative for DVT)
*Pulse Oximetry
Patient hypoxic: no
*EKG
Interpreted by ED Provider?: Yes
Heart Rate: 71
Rate: normal
Rhythm: sinus
[place]: left axis deviation
Interval: first degree heart block and long QT
QRS Pattern: normal QRS
Ischemia: no ischemia
*Critical Care Note
Total Time (30-74mins, 75-104mins- exclusive of procedures): Not Applicable
ED Attending Note
-
Portions of this chart may have been created with voice recognition software.� Occasional wrong word or��sound alike� substitutions may have occurred due to the inherent limitations of voice recognition software.
Discharge Plan
Departure
Patient Disposition: Admit
Date of Disposition: 02/25/24
Time of Disposition: 00:27
Admit to: Med/Surg
Presentation/result/management discussed w/ accepting MD/DO: Hospitalist
Patient with high blood pressure during this ER visit?: Yes
Condition: Good
Covid-19: Not Applicable
Discharge Problem:
Cellulitis of left leg, Hypocalcemia, Low hemoglobin
Prescriptions:
No Action
isosorbide dinitrate 10 mg Tablet
20 mg PO BID
oxcarbazepine 150 mg Tablet
225 mg PO Q12H
carvedilol 6.25 mg Tablet
6.25 mg PO Q12H
mycophenolate mofetil [CellCept] 500 mg Tablet
500 mg PO Q12H
calcium carbonate 500 mg calcium (1,250 mg) Tablet
2,000 mg PO BID
hydralazine 50 mg Tablet
50 mg PO Q8H
clonazepam [Klonopin] 0.5 mg Tablet
0.5 mg PO Q12H
Patient Comments:
09/05/2023, pt. filled this med. on 08/21/2023 for 60 tablets according to PDMP.
torsemide 20 mg Tablet
60 mg PO BID@0800,1500
magnesium oxide 400 mg (241.3 mg magnesium) Tablet
400 mg PO BID
ursodiol 300 mg Capsule
300 mg PO TID
ergocalciferol (vitamin D2) 1,250 mcg (50,000 unit) Capsule
1,250 mcg PO WE@1000
calcium acetate(phosphat bind) 667 mg Capsule
1,334 mg PO TID
duloxetine 30 mg Capsule,Delayed Release(Dr/Ec)
30 mg PO HS
oxycodone [OxyContin] 20 mg Tablet,Oral Only,Ext.Rel.12 Hr
20 mg PO BID
Patient Comments:
09/05/2023, pt. filled this med. on 08/22/2023 for 60 tablets according to PDMP.
Envarsus XR 4 mg Tablet Extended Release 24 Hr
12 mg PO DAILY
oxycodone 10 mg tablet
10 mg PO Q6H PRN (Reason: severe pain)
Patient Comments:
09/05/2023, pt. filled this med. on 08/21/2023 for 60 tablets according to PDMP.
calcitriol 0.5 mcg Capsule
0.5 mcg PO BID Qty: 60 0RF
Referrals:
Kody Arellano DO [Family Provider] -
Interventions
Interventions:
*Risk Screen - Suicide Last Done: 02/24/24 21:04
*General Assessment Last Done: 02/24/24 22:02
*Neglect/Abuse Screening Last Done: 02/24/24 21:04
ED- Fall Risk Assessment Last Done: 02/24/24 22:02
*ED COVID-19 Vaccine History Last Done: 02/24/24 22:02
ED-Skin Assessment Last Done: 02/24/24 22:56
ED-Peripheral Vascular Assessment Last Done: 02/24/24 22:56
ED- Pulmonary Assessment Last Done: 02/24/24 22:56
ED-Musculoskeletal Assessment Last Done: 02/24/24 22:56
ED- Cardiac Assessment Last Done: 02/24/24 22:56
Discharge Date and Time
Print Language: BOTSWANAN
[2024-02-24] MEDS: DILAUDID 0.5 MG IV (22:30)
[2024-02-24 22:37] LABS: NT-proBNP 6940 pg/ml
[2024-02-24 22:57] LABS: Troponin I < 0.012 ng/ml
[2024-02-24 23:12] LABS: ALT (SGPT) 16 U/L (0-50); AST (SGOT) 29 U/L (17-59); Albumin 3.7 g/dl (3.5-5.0); Alkaline Phosphatase 675 U/L (38-126); Blood Urea Nitrogen 81 mg/dl (9-20); Carbon Dioxide 24 mmol/L (22-30); Chloride 100 mmol/L (98-107); Estimated Creatinine Clearance 21 ml/min; Glucose 130 mg/dl (70-99); Potassium 4.4 mmol/L (3.5-5.1); Sodium 134 mmol/L (135-145); Total Bilirubin 0.6 mg/dl (0.2-1.3); eGFR 16.83
[2024-02-24] MEDS: ZOSYN 50 IV (23:50)
[2024-02-25] VITALS (13 sets, daily range): BP systolic 116–171; BP diastolic 63–102; BMI 28.0
[2024-02-25] MEDS: ROXICODONE 10 MG PO ×3 (00:56→20:09)
--- NOTE | 2024-02-25 01:27 | EDRN ---
Per Blood Bank, blood transfusion documentation must be on paper charting, as pt. 'has CMV blood product and [facility] will not let you scan'. Refer to paper transfusion form for documentation.
[2024-02-25] MEDS: DILAUDID 1 MG IV (02:26)
--- NOTE | 2024-02-25 02:27 | HPS.HSE ---
Family Physician
-
Family Physician: Kody Arellano
Chief Complaint
-
SOB/Dizziness, L>R Leg swelling/pain
History of Present Illness
59yo M with PMH HFpEF, HTN, CKD IV (recent LUE AVF placement with Dr. Murphy), Hx Evans Cirrhosis s/p Liver Transplant (2020, on cellcept/tacrolimus, followed by Dr. Muller), Portal HTN, Esophageal Varices s/p banding, Hx SMV Thrombus and Portal Vein
Thrombus (not on A.C.), Chronic Low Back Pain on Opiates, Constipation presents to ER with complaint of extremity edema. Pt states he underwent LUE AVF on 02/12. Followin this he noticed LUE swelling which he was seen again by vascular surgeon
without concern. LUE swelling improved but LLE>RLE swelling developped with pain and erythema to LLE. Denies fever. +Dizziness. +exertional SOB. Pt also notes abdominal swelling.
ER course: Pt presents hypertensive SBP 180s, DBP 100s, other V.S.S. WBC 3.6K, Hgb 7.1 g/dL (9.0 10/2023), MCV 88.7, Ca-Corrected 6.24, Albumin 3.7, CO2 24, BUN/Cr 81/3.9 (baseline Cr 3.2-3.5), AP 675, AST/ALT wnl, Trop <0.012, BNP 6940. Venous
duplex ordered and pending result. Consented and transfused 2u PRBC in ER. Ordered 80g IV lasix on evaluation.
Medical History
Past Medical History
Past Medical History: Reports Other (CHF, HTN, Psychiatric (Anxiety), Other (EVANS cirrhosis, hepatic encephalopathy, portal hypertension, ascites, esophageal varices status post banding, chronic right-sided abdominal pain on pain management, portal
vein thrombosis, nonocclusive SMV thrombus,) and Other (Chronic abd pain, Chronic renal )
Past Surgical History: Reports Other (Appendectomy, Orthopedic (Right leg surgery, Right shoulder surgery, Right hand surgery, ) and Other (Hernia repair X 3, Liver Transplant, Subdural hematoma with surgery, Left arm fistula, ))
Social History
Tobacco: Former Smoker ((Quit smoking 20 years ago. Approx 20 pack years total use.))
Alcohol: Former
Drug: Marijuana
Personal:
Living: With Family
Employment: Not Employed
Family History
Family History: Not pertinent
Allergies / Home Medications
Allergies reflects when Allergies were last updated in [employer].
Home Medications with original date entered in [employer]
Allergy/Medication List:
Allergies
Allergy/AdvReac Type Severity Reaction Status Date / Time
Fish Containing Products Allergy 'I get Verified 02/24/24 21:08
high'
morphine Allergy Itching Verified 02/24/24 21:08
rabeprazole [From Aciphex] Allergy Rash Verified 02/24/24 21:08
shellfish derived Allergy 'I get Verified 02/24/24 21:08
high'
tizanidine Allergy Unknown Verified 02/24/24 21:08
Home Medications
calcium carbonate 2,000 mg PO BID Supplement 03/07/23
carvedilol 6.25 mg tablet 6.25 mg PO Q12H Blood Pressure 03/07/23
clonazepam 0.5 mg tablet (Klonopin) 0.5 mg PO Q12H Mental Health/Anxiety 03/07/23
hydralazine 50 mg tablet 50 mg PO Q8H Blood Pressure 03/07/23
mycophenolate mofetil 500 mg tablet (CellCept) 500 mg PO Q12H ANTI-REJECTION 03/07/23
calcium acetate(phosphat bind) 667 mg capsule 1,334 mg PO TID Kidney Disease 09/05/23
duloxetine 30 mg capsule,delayed release 30 mg PO HS Mental Health/Anxiety 09/05/23
magnesium oxide 400 mg (241.3 mg magnesium) tablet 400 mg PO BID Electrolyte Repletion 09/05/23
oxycodone 10 mg tablet 10 mg PO BID 09/05/23
oxycodone 20 mg tablet,crush resistant,extended release 12 hr (OxyContin) 20 mg PO BID Pain 09/05/23
tacrolimus 4 mg tablet,extended release 24 hr (Envarsus XR) 12 mg PO DAILY ANTI-REJECTION 09/05/23
ursodiol 300 mg capsule 300 mg PO TID GALLSTONE PREVENTION 09/05/23
Colace 100 mg PO PRN PRN constipation 02/25/24
Miralax 17 g PO PRN PRN constipation 02/25/24
calcitriol 1.25 mcg PO DAILY 02/25/24
senna 8.6 mg PO PRN PRN constipation 02/25/24
sodium bicarbonate 650 mg PO BID 02/25/24
torsemide 100 mg tablet 100 mg PO DAILY 02/25/24
Review of Systems
-
A 12 point ROS was completed and negative except as noted: Yes
Physical Exam
Vital Signs
Vital Signs
Temp Pulse Resp BP Pulse Ox
98.3 F 69 15 134/66 96
02/25/24 01:27 02/25/24 01:30 02/25/24 01:30 02/25/24 01:22 02/25/24 01:30
Physical Exam
General: Well Developed, No Apparent Distress and Appears Chronically Ill
HEENT: NormoCephalic, Moist mucous membranes and Atraumatic
Respiratory: Clear
Cardiac: S1/S2 and Regular Rhythm; No Murmur or Rub
GI: Soft, Non Tender, Non Distended and Normal Bowel Sounds; No Organomegaly
Rectal: Deferred by Provider
Genito-urinary: No costovertebral tender; No [place]
Musculoskeletal: No Clubbing, No Cyanosis, Edema, Left Lower Extremity (4+), Edema, Right Lower Extremity (3+) and Other (LUE AVF, no bruit/thrill)
Skin: Warm, Rash and Other (LLE warm to touch with surrounding erythema. +TTP. RLE without warmth or erythema. )
Neuro: Awake, Alert, Oriented, AO x 3, No Motor Deficits and Nonfocal/grossly intact
Psych: Calm
Laboratory Results
-
02/24/24 22:04
02/24/24 22:39
Laboratory Results
Total Bilirubin 0.6 mg/dl (0.2-1.3) 02/24/24 22:39
AST 29 U/L (17-59) 02/24/24 22:39
ALT 16 U/L (0-50) 02/24/24 22:39
Alkaline Phosphatase 675 U/L (38-126) H 02/24/24 22:39
Troponin I Cancelled 02/24/24 22:21
Data Reviewed
-
Medical Tests (Nuc Med, Echo, EKG etc): Image Personally Visualized and interpreted (EKG: NSR @ 71bpm, 1st degree AVB, Nonspecific ST changes, QTC 489ms. )
Lab Data: Labs Reviewed by me
Old Records: Reviewed
Impression/Plan
-
LLE Cellulitis
- Leukopenia WBC 3.6K on admission. Afebrile, though noting immunocompromised history
- S/P Zosyn in ER. Change to ancef, dosed renally. Favor Strep
Volume Overload
- Unclear whether related to worsening of renal disease vs CHF contributing worsening of renal disease
- Check ultrasound abdomen to assess for ascites, may require para
- Follow up CXR
- Follow up Venous duplex to r/o DVT
- Trend with IV diuresis - 80mg IV lasix now, 60mg IV BID thereafter
- Consult nephro and cardio for further recs.
HFpEF, decompensated
- Hx noted. No previous TTE on file. Will update
- Trop <0.012, no chest pain. EKG no acute ischemi change.
- BNP 6940. No RR distress or oxygen requirements. Check CXR
- Trend with IV diuresis. Trend I&O and daily wts
- Continue home BB
- Cardio consult.
VICKEY on CKD IV
- BUN/Cr 81/3.9. Baseline Cr 3.2-3.5.
- Unclear whether progression of known disease vs CHF contributing to cardiorenal etiology
- LUE AVF not yet matured
- Torsemide 100mg on hold. Ordered 80mg IV lasix and 60mg IV BID thereafter
- Trend I&O and wts
- Obtain renal ultrasound
- Consult nephrology for further management
Hypocalcemia
- Corrected 6.2. Likely to lower with RBC transfusion
- 2amps Ca Gluc ordered. Check ionized for AM and replete accordingly.
Acute/Chronic Anemia
- Hgb 7.1 g/dL. Previously 9.0 10/2023. MCV 88.7
- Suspect AOCD in setting of renal disease
- Add on iron/ferritin/tibc
- Consented and transfused 2u PRBC in ER
- Could be contributing to high output heart failure
- Defer to nephro consideration for EPO
HTN
- SBP 180s, DBP 100s on admission. Likely in setting of volume overload
- Trend with IV diuresis. Home torsemide on hold
- Continue home BB, Hydralazine
EVANS Cirrhosis S/P liver transplant 2020
Elevated Alk Phos (chronic)
- Tacrolimus on hold pending levels, resume accordingly
- Continue cellcept
- Continue home ursodiol
- Outpatient follow up wt Dr. Muller
Anxiety/Depression - Continue home klonipin. [place]-PDMP reviewed.
Acute/ Chronic Pain - Continue home oxycodone and oxycontin regimen. Will add 0.5mg IV dilaudid for BTP given new LLE pain/cellulitis.
Diet: Pt refusing renal or sodium restricted diet. States he will order accordingly. Regular diet with 1200cc fluid restriction
DVT: Lovenox
Code Status: DNR/DNI, confirmed
[2024-02-25] MEDS: CALCIUM GLUCONATE 1000 MG IV (03:00)
[2024-02-25] MEDS: LASIX 80 MG IV (03:01)
[2024-02-25] MEDS: DILAUDID 0.5 MG IV ×4 (04:56→20:58)
--- NOTE | 2024-02-25 05:13 | PTCARENOTE ---
Pt received from ED via stretcher. Ambulated to bed with assist x1 without incident. Oriented to surroundings and plan of care discussed. Admission and assessment completed. (refer to worklist). Received 1 unit of PRBCs prior to arrival. 2nd
unit of PRBCs started, no s/s of reaction. Documented on pink slip w/carbon since unable to scan into [facility]. Pt with generalized scabbed abrasions/scratches to UE and LE, reports chronic itching. Due to void since receiving IV lasix, urinal
provided. #20 RH (knuckle) IV patent but keeps occluding while blood transfusing. CHILD SUPPORT SPECIALIST placed #20 RW. Pt's own Envarsus XR walked to pharmacy for lockup and profiling once levels result. Medicated PRN dilaudid for 9/10 LLE pain (refer to MAR).
DISCHARGE SPECIALIST covering house contacted to convert calcium gluconate to IV piggyback as it cannot be administered IVP at pt's level of care. NPO since 299 as abd U/S ordered, pt verbalizes understanding. Call flores within reach. Plan of care ongoing.
[2024-02-25] MEDS: CALCIUM GLUCONATE 100 IV (06:18)
--- NOTE | 2024-02-25 06:34 | PTCARENOTE ---
2nd unit of PRBCs transfused w/o signs or symptoms of reaction. IV Calcium gluconate infusing. Pt OOB to BR w/assist x1, voided 650 mL. Pt keep asking when he can eat. NPO for abdominal U/S. Plan of care ongoing.
--- NOTE | 2024-02-25 08:18 | CON.CAR ---
Addendum entered and electronically signed by Kody Cano MD 02/26/24 07:55:
I saw and examined the patient.
The WEB SITE PROJECT MANAGER's note was reviewed and I agree with the note.
Comment: 59 y/o male with hypertension, anxiety, portal HTN, Esophageal Varices s/p banding, Hx SMV thrombus and portal vein thrombus, TRAVIS cirrhosis with hx liver tx 2020, HFpEF, chronic pain on narcotics, anemia, CKD IV with recent fistula
placement, hx SDH with surgery who is here for evaluation of LLE pain and swelling since last week.
- Cont IV lasix
Original Note:
Consultation
Consultation Request
Date/Time Consultation Requested: 02/25/24299
Date/Time Consultation Performed: 02/25/24950
Requesting Provider: Dr. Mina
Performing Provider: Kenzie ALEJANDRO for Dr. Cano
Reason for Consultation: CHF
Medical History
-
Chief Complaint: LLE swelling and pain
History of Present Illness:
59 y/o male with hypertension, anxiety, portal HTN, Esophageal Varices s/p banding, Hx SMV thrombus and portal vein thrombus, TRAVIS cirrhosis with hx liver tx 2020, HFpEF, chronic pain on narcotics, anemia, CKD IV with recent fistula placement, hx
SDH with surgery who is here for evaluation of LLE pain and swelling since last week. He is being treated for cellulitis and LE u/s is pending. We are consulted for CHF. He does report some worsened SOB, abdominal bloating, and LE edema as noted.
Past Medical History
Past Medical History: HTN, Renal Failure and Other (as above )
Social History
Tobacco: Former Smoker (quit 20 years ago)
Alcohol: None
Family History
Family History: Reviewed & Not Pertinent
Allergies / Home Medications
Allergy/AdvReac Type Severity Reaction Status Date / Time
Fish Containing Products Allergy 'I get Verified 02/24/24 21:08
high'
morphine Allergy Itching Verified 02/24/24 21:08
rabeprazole [From Aciphex] Allergy Rash Verified 02/24/24 21:08
shellfish derived Allergy 'I get Verified 02/24/24 21:08
high'
tizanidine Allergy Unknown Verified 02/24/24 21:08
�Medication �Instructions �Recorded �Confirmed �Type
calcium carbonate 2,000 mg PO BID Supplement 03/07/23 02/25/24 History
carvedilol 6.25 mg tablet 6.25 mg PO Q12H Blood Pressure 03/07/23 02/25/24 History
clonazepam 0.5 mg tablet (Klonopin) 0.5 mg PO Q12H Mental 03/07/23 02/25/24 History
Health/Anxiety
hydralazine 50 mg tablet 50 mg PO Q8H Blood Pressure 03/07/23 02/25/24 History
mycophenolate mofetil 500 mg 500 mg PO Q12H ANTI-REJECTION 03/07/23 02/25/24 History
tablet (CellCept)
calcium acetate(phosphat bind) 667 1,334 mg PO TID Kidney Disease 09/05/23 02/25/24 History
mg capsule
duloxetine 30 mg capsule,delayed 30 mg PO HS Mental Health/Anxiety 09/05/23 02/25/24 History
release
magnesium oxide 400 mg (241.3 mg 400 mg PO BID Electrolyte Repletion 09/05/23 02/25/24 History
magnesium) tablet
oxycodone 10 mg tablet 10 mg PO BID 09/05/23 02/25/24 History
oxycodone 20 mg tablet,crush 20 mg PO BID Pain 09/05/23 02/25/24 History
resistant,extended release 12 hr
(OxyContin)
tacrolimus 4 mg tablet,extended 12 mg PO DAILY ANTI-REJECTION 09/05/23 02/25/24 History
release 24 hr (Envarsus XR)
ursodiol 300 mg capsule 300 mg PO TID GALLSTONE PREVENTION 09/05/23 02/25/24 History
Colace 100 mg PO PRN PRN constipation 02/25/24 02/25/24 History
Miralax 17 g PO PRN PRN constipation 02/25/24 02/25/24 History
calcitriol 1.25 mcg PO DAILY 02/25/24 02/25/24 History
senna 8.6 mg PO PRN PRN constipation 02/25/24 02/25/24 History
sodium bicarbonate 650 mg PO BID 02/25/24 02/25/24 History
torsemide 100 mg tablet 100 mg PO DAILY 02/25/24 02/25/24 History
Review of Systems
-
History Source: Patient
All other systems: Negative unless noted
Constitutional: Other (generalized pain, chronic)
Respiratory: Trouble Breathing
Abdomen/GI: Other (abdominal bloating)
Musculoskeletal: Edema (LE edema L > R)
Skin: Other (LLE reddened )
Physical Exam
Vital Signs
Temp Pulse Resp BP Pulse Ox
97.9 F 71 18 160/86 96
02/25/24 06:20 02/25/24 06:20 02/25/24 06:20 02/25/24 06:20 02/25/24 06:20
Lab Results
Troponin I Cancelled 02/24/24 22:21
Daw-[id number]-Gkubnlbzksx Pept 6940 pg/ml 02/24/24 22:04
Physical Exam
General: Well Developed, Well Nourished and No Apparent Distress
HEENT: Normocephalic and Anicteric
Respiratory: Other (coarse breath sounds)
Cardiac: Regular Rhythm
Musculoskeletal: Edema (BLE edema L > R, +1-2)
Skin: Warm, Dry and Other (LLE reddened)
Neuro: AO x 3
Psych: Calm
Impression / Plan
-
LLE swelling:
-u/s is pending
-he is getting abx for suspected cellulitis
SOB:
-CHF treatment as below, also some concern for PNA on CXR- management per primary
Ndugr-za-yycnbdk HFpEF:
-he reports dry weight is 195. Currently about 200 lbs.
-echo as below
-agree with IV Lasix, which requires intensive monitoring. Will add media monitor.
-he has significant kidney disease as noted
CKD:
-nephrology is consulted
-follow with diuresis
-recently just had fistula placed
Anemia:
-s/p transfusion
-AM labs pending
HTN:
-follow with diuresis
Hx liver transplant
Data Reviewed
-
EKG: Tracing Personally Visualized and interpreted (SR with 1st degree AVB 71 BPM- stable from previous)
Radiology: Report Reviewed by me (Pulmonary edema with small to moderate loculated right pleural effusion. Right perihilar airspace opacities are suspicious for pneumonia.)
Medical Tests (Nuc Med, Echo etc): Report Reviewed by me (echo 02/25/24: Normal LV size and function with no regional wall motion abnormalities. Left ventricular ejection fraction is 60%. Mild aortic regurgitation. Mild tricuspid regurgitation. PAP 47
mmHG. Pleural effusion present. )
Labs: Labs Reviewed by me
[2024-02-25] MEDS: ANCEF 2.5 MG IV ×2 (10:18→20:08)
[2024-02-25] MEDS: LASIX 60 MG IV ×2 (10:19→16:55)
[2024-02-25] MEDS: FLUSH (NSS) 1 FLUSH IV ×2 (10:20→16:56)
[2024-02-25] MEDS: KLONOPIN 0.5 MG PO ×2 (10:21→20:53)
[2024-02-25] MEDS: SODIUM BICARBONATE 650 MG PO ×2 (10:22→20:11)
[2024-02-25] MEDS: OSCAL CAL 500 2000 MG PO ×2 (10:23→20:53)
[2024-02-25] MEDS: CELLCEPT 500 MG PO ×2 (10:23→20:10)
[2024-02-25] MEDS: APRESOLINE 50 MG PO ×3 (10:23→23:31)
[2024-02-25] MEDS: COREG 6.25 MG PO ×2 (10:23→20:08)
[2024-02-25] MEDS: PHOSLO 1334 MG PO ×3 (10:24→16:55)
[2024-02-25] MEDS: ACTIGALL 300 MG PO ×3 (10:24→21:00)
[2024-02-25] MEDS: MAGNESIUM OXIDE 500 MG PO ×2 (10:24→20:10)
--- NOTE | 2024-02-25 10:28 | CM ---
Patient seen bedside, initial assessment completed. Patient resides with his in a split level home, three steps to enter. Patient denies use of DME, reports [facility] in past, denies SNF. Patient PCP Kody Arellano, pharmacy [facility].
Patient reports he does not have prescription coverage. Patient interested in food resources, CM will provide list from [email or web address]. Patient reports he is no longer driving, drives. CM will continue to follow for all discharge planning needs.
Plan; home no needs likely.
--- NOTE | 2024-02-25 10:50 | W.PN.HOSP.TC ---
Today's Communication/Plan
-
.
Assessment / Plan
Assessment / Plan
Physical Exam
General: No Apparent Distress and Appears Chronically Ill
HEENT: Normocephalic, Moist mucous membranes and Atraumatic
Respiratory: Clear
Cardiac: S1/S2 and Regular Rhythm; No Murmur or Rub
GI: Soft, Non Tender, Non Distended and Normal Bowel Sounds; No Organomegaly
Rectal: No bleeding
Genito-urinary: No costovertebral tender; No Frederick
Musculoskeletal: No Clubbing, No Cyanosis, Edema, Left Lower Extremity (4+), Edema, Right Lower Extremity (3+) and Other (LUE AVF, no bruit/thrill)
Skin: Warm, Rash and Other (LLE warm to touch with surrounding erythema. +TTP. RLE without warmth or erythema. )
Neuro: Awake, Alert, Oriented, AO x 3, No Motor Deficits and Nonfocal/grossly intact
Psych: Calm
LLE Cellulitis
- Leukopenia WBC 3.6K on admission. Afebrile, though noting immunocompromised history
- S/P Zosyn in ER. Change to Ancef, dosed renally. Favor Strep
Hypocalcemia
c/w oral calcium and calcitriol
Acute on chronic HFpEF, decompensated
- Hx noted. No previous TTE on file. Will update
- Trop <0.012, no chest pain. EKG no acute ischemi change.
- BNP 6940. No RR distress or oxygen requirements. Check CXR
- Trend with IV diuresis. Trend I&O and daily wts
- Continue home BB
- Cardio consult.
VICKEY on CKD IV
- BUN/Cr 81/3.9. Baseline Cr 3.2-3.5.
- Unclear whether progression of known disease vs CHF contributing to cardiorenal etiology
- LUE AVF not yet matured
- Torsemide 100mg on hold. Ordered 80mg IV lasix and 60mg IV BID thereafter
- Trend I&O and wts
- Obtain renal ultrasound
- Consult nephrology for further management
Hypocalcemia
- Corrected 6.2. Likely to lower with RBC transfusion
- 2amps Ca Gluc ordered. Check ionized for AM and replete accordingly.
Acute/Chronic Anemia
- Hgb 7.1 g/dL. Previously 9.0 10/2023. MCV 88.7
- Suspect AOCD in setting of renal disease
- Add on iron/ferritin/tibc
- Consented and transfused 2u PRBC in ER
- Could be contributing to high output heart failure
- Defer to nephro consideration for EPO
HTN
- SBP 180s, DBP 100s on admission. Likely in setting of volume overload
- Trend with IV diuresis. Home torsemide on hold
- Continue home BB, Hydralazine
TRAVIS Cirrhosis S/P liver transplant 2020
Elevated Alk Phos (chronic)
- Tacrolimus on hold pending levels, resume accordingly
- Continue cellcept
- Continue home ursodiol
- Outpatient follow up wtih Dr. Muller
Anxiety/Depression - Continue home Klonopin. [place]-PDMP reviewed.
Acute/ Chronic Pain - Continue home oxycodone and oxycontin regimen. Will add 0.5mg IV dilaudid for BTP given new LLE pain/cellulitis.
Diet: Pt refusing renal or sodium restricted diet. C/W . Regular diet with 1200cc fluid restriction
DVT: Lovenox
Code Status: DNR/DNI, confirmed
Total time spent to see the patient, examine the patient on the floor, review data and lab results, discuss treatment plan with patient, nursing staff around 55 minutes.
Anticipated Discharge: > 48 hours
Subjective/Interval History
-
Date of Service: February 25, 2024
No chest pain
No sob
No fevers
Objective Data
-
Labs:
Laboratory Results
02/24/24 02/25/24
22:39 06:00
WBC Pending
Hgb Pending
Hct Pending
Plt Count Pending
Sodium 134 L Pending
Potassium 4.4 Pending
Chloride 100 Pending
Carbon Dioxide 24 Pending
BUN 81 H Pending
Creatinine 3.9 H Pending
Glucose 130 H Pending
Calcium 6.0 L* Pending
Total Bilirubin 0.6
AST 29
ALT 16
Alkaline Phosphatase 675 H
Vital Signs:
Vital Signs
Temp Pulse Resp BP Pulse Ox
97.8 F 69 12 147/86 92
02/25/24 07:35 02/25/24 10:19 02/25/24 07:35 02/25/24 10:19 02/25/24 07:35
I&O
02/24/24 02/25/24 02/26/24
06:59 06:59 06:59
Intake Total 300 / 300
Output Total 1100 / 1100
Balance 300 / 300 -1100 / -1100
[2024-02-25] MEDS: OXYCONTIN (CONTROLLED RELEASE) 20 MG PO ×2 (10:54→20:08)
[2024-02-25 11:38] LABS: % Basophils 0.6 % (0-2); % Eosinophils 4.6 % (0-6); % Immature Granulocytes 0.6 % (0-0.5); % Lymphocytes 3.7 % (20.5-51.1); % Monocytes 12.3 % (1.7-9.3); % Neutrophils 78.2 % (42.2-75.2); Absolute Eosinophils 0.3 10^3/uL (0-0.7); Absolute Lymphocytes 0.2 10^3/uL (1.2-3.4); Absolute Monocytes 0.7 10^3/uL (0.1-0.6); Absolute Neutrophils 4.3 10^3/uL (1.4-6.5); Hematocrit 25.5 % (39.0-52.0); Hemoglobin 8.7 g/dL (13.0-18.0); Mean Corp Hgb Conc. 34.1 g/dL (33.0-37.0); Mean Corpuscular Hgb 30.6 pg (27.0-31.0); Mean Corpuscular Volume 89.8 fL (80.0-94.0); Mean Platelet Volume 10.7 fL (7.4-10.4); Nucleated Red Blood Cells % 0 % (-); Platelet Count 163 10^3/uL (130-400); Red Blood Cell Count 2.84 10^6/uL (4.70-6.10); Red Cell Dist. Width 14.6 % (11.5-14.5); White Blood Cell Count 5.5 10^3/uL (4.8-10.8)
[2024-02-25 12:07] LABS: Blood Urea Nitrogen 76 mg/dl (9-20); Calcium 5.9 mg/dl (8.4-10.2); Carbon Dioxide 21 mmol/L (22-30); Chloride 99 mmol/L (98-107); Estimated Creatinine Clearance 21 ml/min; Glucose 149 mg/dl (70-99); Magnesium 1.3 mg/dl (1.6-2.3); Potassium 4.5 mmol/L (3.5-5.1); Sodium 135 mmol/L (135-145); eGFR 16.83
--- NOTE | 2024-02-25 12:11 | W.CON.NEPH ---
Consultation
-
Date/Time Consultation Requested: 02/25/2024 2:47AM
Date/Time Consultation Performed: 02/25/2024 12:12PM
Requesting Provider: Keeley
Performing Provider: Jarrod
Reason for Consultation: VICKEY on CKD IV, hypocalcemia
Medical History
-
Chief Complaint: VICKEY on CKD, hypocalcemia
History of Present Illness:
Patient is a 58 y/o male past medical history of liver transplant maintained on mycophenolate and tacrolimus, followed by Dr Muller, becky HTN, esophageal varices s/p banding, hx of SMV thrombus and portal vein thrombus, CKD V with baseline Cr of 3.5
(follows with Dr. Spears), subdural hematoma, seizure disorder maintained on oxcarbazepine, and chronic pain on opiates and constipation who presents with LLE pain and swelling. Of note, he underwent fistula placement on 02/12 and started noticing
his LLE afterwards. Denies fevers at home. Endorses dizziness, SOB. He is maintained on chronic diuretic therapy with torsemide 100mg daily in the setting of his CKD. Of note, the patient states that his Cr has been as high as 4 more recently so
this may be his new baseline function.
Past Medical History
CKD stage 5 (~3.5) Followed by Dr. Spears
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
Subdural hematoma January 2023 status post thuan hole
Hypertension, multidrug
Seizure disorder on oxcarbazepine
Hypothyroidism with normal TSH
Chronic back pain
Chronic opioid dependence
Anxiety/depression
Chronic heart failure, type unknown
Inguinal herniorrhaphy
Former smoker
Daily marijuana
Anemia
Secondary hyperparathyroidism
Social History
Tobacco: Former Smoker
Alcohol: Former
Family History
no CKD
Allergies / Home Medications
Allergy/AdvReac Type Severity Reaction Status Date / Time
Fish Containing Products Allergy 'I get Verified 08/04/24 21:08
high'
morphine Allergy Itching Verified 02/24/24 21:08
rabeprazole [From Aciphex] Allergy Rash Verified 02/24/24 21:08
shellfish derived Allergy 'I get Verified 02/24/24 21:08
high'
tizanidine Allergy Unknown Verified 02/24/24 21:08
�Medication �Instructions �Recorded �Confirmed �Type
calcium carbonate 2,000 mg PO BID Supplement 03/07/23 02/25/24 History
carvedilol 6.25 mg tablet 6.25 mg PO Q12H Blood Pressure 03/07/23 02/25/24 History
clonazepam 0.5 mg tablet (Klonopin) 0.5 mg PO Q12H Mental 03/07/23 02/25/24 History
Health/Anxiety
hydralazine 50 mg tablet 50 mg PO Q8H Blood Pressure 03/07/23 02/25/24 History
mycophenolate mofetil 500 mg 500 mg PO Q12H ANTI-REJECTION 03/07/23 02/25/24 History
tablet (CellCept)
calcium acetate(phosphat bind) 667 1,334 mg PO TID Kidney Disease 09/05/23 02/25/24 History
mg capsule
duloxetine 30 mg capsule,delayed 30 mg PO HS Mental Health/Anxiety 09/05/23 02/25/24 History
release
magnesium oxide 400 mg (241.3 mg 400 mg PO BID Electrolyte Repletion 09/05/23 02/25/24 History
magnesium) tablet
oxycodone 10 mg tablet 10 mg PO BID 09/05/23 02/25/24 History
oxycodone 20 mg tablet,crush 20 mg PO BID Pain 09/05/23 02/25/24 History
resistant,extended release 12 hr
(OxyContin)
tacrolimus 4 mg tablet,extended 12 mg PO DAILY ANTI-REJECTION 09/05/23 02/25/24 History
release 24 hr (Envarsus XR)
ursodiol 300 mg capsule 300 mg PO TID GALLSTONE PREVENTION 09/05/23 02/25/24 History
Colace 100 mg PO PRN PRN constipation 02/25/24 02/25/24 History
Miralax 17 g PO PRN PRN constipation 02/25/24 02/25/24 History
calcitriol 1.25 mcg PO DAILY 02/25/24 02/25/24 History
senna 8.6 mg PO PRN PRN constipation 02/25/24 02/25/24 History
sodium bicarbonate 650 mg PO BID 02/25/24 02/25/24 History
torsemide 100 mg tablet 100 mg PO DAILY 02/25/24 02/25/24 History
Review of Systems
-
History Source: Patient
All other systems: Negative unless noted
Physical Exam
Vital Signs
Vital Signs
Temp Pulse Resp BP Pulse Ox
97.9 F 62 12 140/72 93
02/25/24 11:15 02/25/24 11:15 02/25/24 11:15 02/25/24 11:15 02/25/24 11:15
Lab Results
WBC 5.5 10^3/uL (4.8-10.8) 02/25/24 11:27
RBC 2.84 10^6/uL (4.70-6.10) L 02/25/24 11:27
Hgb 8.7 g/dL (13.0-18.0) L D 02/25/24 11:27
Hct 25.5 % (39.0-52.0) L 02/25/24 11:27
Plt Count 163 10^3/uL (130-400) 02/25/24 11:27
Sodium 135 mmol/L (135-145) 02/25/24 11:27
Potassium 4.5 mmol/L (3.5-5.1) 02/25/24 11:27
Chloride 99 mmol/L (98-107) 02/25/24 11:27
Carbon Dioxide 21 mmol/L (22-30) L 02/25/24 11:27
BUN 76 mg/dl (9-20) H 02/25/24 11:27
Creatinine 3.9 mg/dL (0.7-1.3) H 02/25/24 11:27
eGFR 16.83 02/25/24 11:27
Glucose 149 mg/dl (70-99) H 02/25/24 11:27
Calcium 5.9 mg/dl (8.4-10.2) L* 02/25/24 11:27
Bmy-Z-Zemrrirzjld Pept 6940 pg/ml 02/24/24 22:04
Albumin 3.7 g/dl (3.5-5.0) 02/24/24 22:39
Physical Exam
General: AOx3, No Distress and Nontoxic
HEENT: PERRL, EOMI, Anicteric, Conjunctivae Clear, Ear/Nose Intact, Hearing Normal, Oropharynx Clear/Moist, Dentition Intact, Facial Symmetry, Neck Supple, Trachea Midline and No Thyromegaly
Respiratory: Clear, Normal Excursion and Nonlabored Respirations
Cardiac: S1/S2, Regular Rate/Rhythm and Edema
Breast: N/A
Abdomen: Soft, Nontender, Normal Bowel Sounds (hypoactive bowel sounds) and Other (distended)
Rectal: Deferred by Provider
Genito-urinary: No Costovertebral Tender and Clear Urine
Musculoskeletal: No Clubbing, No Cyanosis and No Edema
Skin: No Cyanosis, No Bruising and Other (erythema of the LLE)
Neuro: Nonfocal/Grossly Intact
Hematologic/Lymphatic: No Cervical Lymphadenopathy
Psych: Mood/afflect pleasant, Insight/judgement good and Appropriate
Vascular Access: AVF (no audible bruit or palpable thrill, placed 02/12)
Data Reviewed
-
Radiology: Image Personally Visualized and interpreted (pulmonary edema noted with R pleral effusion)
Ultrasound: Report Reviewed by me (no obstructive nephropathy or nephrolithiasis)
Labs: Labs Reviewed by me, Discussed with Physician and Discussed with Patient
Old Records: Reviewed
Assessment/Plan
-
Impression:
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 according to patient in 4s
Hypocalcemia
Edema
Proteinuria
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
Subdural hematoma January 2023 status post thuan hole
Hypertension, multidrug
Seizure disorder on oxcarbazepine
Hypothyroidism with normal TSH
Chronic back pain
Chronic opioid dependence
Anxiety/depression
Chronic heart failure, type unknown:torsemide 60mg BID
Inguinal herniorrhaphy
Former smoker
Daily marijuana
Plan:
Hypocalcemia:
-PTH has been persistently appropriately elevated in excess of 300 therefore not consistent with hypoparathyroidism, likely underlying secondary hyperparathyroidism present as well
-Concern for PTH resistance, 2/2 to hypomag??
-magnesium levels are low
-please aggressively replete Mg
-agree with continuing oral calcium supplementation and calcitriol
-once Mg >2, could consider IV calcium to assist in repletion
-Increase calcitriol to 1.0mcg daily and maintain oral calcium supplements
-May require endocrinology consultation as outpatient
CKD 5:
-unclear if the patient is at his new baseline or if this is VICKEY on CKD V
-regardless patient denies anorexia, metallic taste in mouth, asterixis, increased confusion or other signs of renal failure
-appears slightly overloaded, agree with lasix 60mg IV BID for now.
-continue to trend Cr
-blood pressures higher than goal, likely in the setting of overload.
-on abx for possible LLE cellulitis
[2024-02-25 18:53] LABS: Creatine Phosphokinase 109 U/L (55-170); Iron 86 ug/dl (49-181)
[2024-02-25 19:06] LABS: Percent Saturation 33 % (20-50); Total Iron Binding Capacity 257 ug/dl (261-462)
[2024-02-25] MEDS: CYMBALTA DELAYED RELEASE 30 MG PO (20:53)
[2024-02-26] MEDS: DILAUDID 0.5 MG IV ×5 (00:58→21:11)
[2024-02-26 03:25] VITALS: BP 144/82
[2024-02-26 06:00] VITALS: BMI 27.7
[2024-02-26 07:00] VITALS: BP 152/77
[2024-02-26] MEDS: FLUSH (NSS) 1 FLUSH IV ×3 (08:21→16:52)
[2024-02-26] MEDS: ANCEF 2.5 MG IV ×2 (08:21→20:07)
[2024-02-26] MEDS: MAGNESIUM OXIDE 500 MG PO ×2 (08:24→20:08)
[2024-02-26] MEDS: PHOSLO 1334 MG PO ×3 (08:24→16:51)
[2024-02-26] MEDS: OSCAL CAL 500 2000 MG PO ×2 (08:24→20:09)
[2024-02-26] MEDS: APRESOLINE 50 MG PO ×3 (08:25→23:46)
[2024-02-26] MEDS: CELLCEPT 500 MG PO ×2 (08:25→20:09)
[2024-02-26] MEDS: SODIUM BICARBONATE 650 MG PO ×2 (08:25→20:08)
[2024-02-26] MEDS: COREG 6.25 MG PO ×2 (08:25→20:08)
[2024-02-26] MEDS: ACTIGALL 300 MG PO ×3 (08:25→21:11)
[2024-02-26] MEDS: KLONOPIN 0.5 MG PO ×2 (09:17→21:11)
[2024-02-26] MEDS: OXYCONTIN (CONTROLLED RELEASE) 20 MG PO ×2 (09:18→20:08)
[2024-02-26] MEDS: ROXICODONE 10 MG PO ×2 (09:18→20:07)
--- NOTE | 2024-02-26 09:28 | W.PN.HOSP.TC ---
Today's Communication/Plan
-
.
Assessment / Plan
Assessment / Plan
Physical Exam
General: No Apparent Distress and Appears Chronically Ill
HEENT: Normocephalic, Moist mucous membranes and Atraumatic
Respiratory: Clear
Cardiac: S1/S2 and Regular Rhythm; No Murmur or Rub
GI: Soft, Non Tender, Non Distended and Normal Bowel Sounds; No Organomegaly
Rectal: No bleeding
Genito-urinary: No costovertebral tender; No Frederick
Musculoskeletal: No Clubbing, No Cyanosis, Edema, Left Lower Extremity (4+), Edema, Right Lower Extremity (3+) and Other (LUE AVF, no bruit/thrill)
Skin: Warm, Rash, edema in both leg. Left LE is tender
Neuro: Awake, Alert, Oriented, AO x 3, No Motor Deficits and Nonfocal/grossly intact
Psych: Calm
#LLE Cellulitis
- Leukopenia WBC 3.6K on admission. Afebrile, though noting immunocompromised history
- S/P Zosyn in ER. Changed to Ancef, dosed renally.
- Clinically not impressive for cellulitis. Pain is same and not improving. Pt feels it started after fistula surgery. Normal looking left foot, warm and good pulse
- He is requesting an additional pain medication.
I will ask vascular to evaluate.
Hypocalcemia
c/w oral calcium and calcitriol
Acute on chronic HFpEF, decompensated
No sob or chest pain
Echo 8/5 LVEF 60%, Mild TR, Mild AR,
- Trop <0.012, no chest pain. EKG no acute ischemic change.
- BNP 6940. No RR distress or oxygen requirements. Check CXR
- Trend with IV diuresis. Trend I&O and daily wts
- Continue home BB
- Appreciate cardiology input.
VICKEY on CKD IV
- BUN/Cr 71/3.9. Baseline Cr 3.2-3.5.
- Unclear whether progression of known disease vs CHF contributing to cardiorenal etiology
- LUE AVF not yet matured
- Torsemide 100mg on hold. Ordered 80mg IV Lasix and 60mg IV BID thereafter
- Trend I&O and wts
- Obtain renal ultrasound
- Appreciate nephrology help
Acute/Chronic Anemia
- Hgb 7.1 g/dL. Previously 9.0 10/2023. MCV 88.7
- Suspect AOCD in setting of renal disease
- on iron/ferritin/tibc
- Consented and transfused 2u PRBC in ER
- Could be contributing to high output heart failure
HTN
- Trend with IV diuresis. Home torsemide on hold
- Continue home BB, Hydralazine
TRAVIS Cirrhosis S/P liver transplant 2020
Elevated Alk Phos (chronic)
- Tacrolimus on hold pending levels, resume accordingly
- Continue cellcept
- Continue home ursodiol
- Outpatient follow up wtih Dr. Muller
Anxiety/Depression - Continue home Klonopin. [place]-PDMP reviewed.
Acute/ Chronic Pain - Continue home oxycodone and oxycontin regimen. Will add 0.5mg IV dilaudid for BTP given new LLE pain/cellulitis.
Diet: Pt refusing renal or sodium restricted diet. C/W . Regular diet with 1200cc fluid restriction
DVT: Lovenox
Code Status: DNR/DNI, confirmed
Total time spent to see the patient, examine the patient on the floor, review data and lab results, discuss treatment plan with patient, nursing staff around 55 minutes.
Anticipated Discharge: 24 - 48 hours
Subjective/Interval History
-
Date of Service: February 26, 2024
Same pain in left leg
He wants his home medicine
Objective Data
-
Labs:
Laboratory Results
02/26/24
08:38
Sodium Pending
Potassium Pending
Chloride Pending
Carbon Dioxide Pending
BUN Pending
Creatinine Pending
Glucose Pending
Calcium Pending
Vital Signs:
Vital Signs
Temp Pulse Resp BP Pulse Ox
97.7 F 68 16 152/77 96
02/26/24 07:00 02/26/24 08:25 02/26/24 07:00 02/26/24 08:25 02/26/24 07:00
I&O
02/25/24 02/26/24 02/27/24
06:59 06:59 06:59
Intake Total 300 / 300 720 / 720
Output Total 4050 / 4050
Balance 300 / 300 -3330 / -3330
[2024-02-26 10:47] LABS: Blood Urea Nitrogen 75 mg/dl (9-20); Calcium 5.6 mg/dl (8.4-10.2); Carbon Dioxide 23 mmol/L (22-30); Chloride 98 mmol/L (98-107); Estimated Creatinine Clearance 22 ml/min; Glucose 138 mg/dl (70-99); Potassium 4.2 mmol/L (3.5-5.1); Sodium 134 mmol/L (135-145); eGFR 17.36
--- NOTE | 2024-02-26 10:55 | PTCARENOTE ---
Patient with critical lab value: Calcium 5.6 Dr. Garay and Dr. Mojica notified via TT. Plan of care ongoing.
[2024-02-26] MEDS: LASIX 60 MG IV ×2 (10:57→16:51)
[2024-02-26 11:00] VITALS: BP 132/74
[2024-02-26] MEDS: NON-FORMULARY ITEM 12 MG PO (11:00)
--- NOTE | 2024-02-26 11:33 | W.PN.CD ---
Today's Communication / Plan
-
Cont IV lasix diuresing well
dry weight ~195 lbs
Impression / Plan
-
LLE swelling:
-abx for cellulitis per primary
SOB:
-CHF treatment as below, also some concern for PNA on CXR- management per primary
Rdtdm-il-rwcjnuq HFpEF:
-he reports dry weight is 195. Currently about 198 lbs.
-echo as below
-cont IV lasix for diuresis
-he has significant kidney disease as noted
CKD:
-nephrology is consulted
-follow with diuresis
-recently just had fistula placed
Anemia:
-s/p transfusion
-AM labs pending
HTN:
-follow with diuresis
Hx liver transplant
echo: CONCLUSIONS
Normal LV size and function with no regional wall motion abnormalities.
Left ventricular ejection fraction is 60% by volumetric assessment. Normal
diastolic function.
Normal right ventricular size and function.
Mild aortic regurgitation.
Mild tricuspid regurgitation.
Estimated pulmonary artery pressure of 47 mmHg assuming a right atrial pressure
of 3 mmHg.
Pleural effusion present.
No prior study for comparison.
Physical Exam
Vital Signs/Labs
Vital Signs
Temp Pulse Resp BP Pulse Ox
97.9 F 58 14 132/74 95
02/26/24 11:00 02/26/24 11:00 02/26/24 11:00 02/26/24 11:00 02/26/24 11:00
02/25/24 02/26/24 02/27/24
06:59 06:59 06:59
Actual Weight 200 lb 6 oz 198 lb 5 oz
02/25/24 11:27
02/26/24 08:38
Magnesium 1.3 mg/dl (1.6-2.3) L 02/25/24 11:27
08/04/24
22:04
Cto-T-Uoiqlxadfjc Pept 6940
LAB Results
02/24/24 02/24/24
22:04 22:21
Troponin I < 0.012 Cancelled
Physical Exam
Constitutional: No acute distress
EENT: Anicteric
Cardiovascular: Rhythm & rate is regular
Respiratory: Respiratory effort normal and Crackles Present (trace)
GI: Soft
Neuro/Psych: AO x 3
Data Reviewed
-
Date of Service: February 26, 2024
EKG: Tracing Personally Visualized and interpreted (sr)
Echo: Tracing Personally Visualized and interpreted
Labs: Labs Reviewed by me
[2024-02-26] MEDS: CALCIUM GLUCONATE 100 IV (11:49)
[2024-02-26] MEDS: MAGNESIUM SULFATE 100 IV (12:49)
--- NOTE | 2024-02-26 14:54 | W.PN.NEPH.PH ---
Today's Communication / Plan
-
- IV calcium and IV mag
Assessment/Plan
-
Impression:
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 according to patient in 4s
Hypocalcemia
Edema
Proteinuria
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
Subdural hematoma January 2023 status post thuan hole
Hypertension, multidrug
Seizure disorder on oxcarbazepine
Hypothyroidism with normal TSH
Chronic back pain
Chronic opioid dependence
Anxiety/depression
Chronic heart failure, type unknown:torsemide 60mg BID
Inguinal herniorrhaphy
Former smoker
Daily marijuana
Plan:
Hypocalcemia:
-PTH has been persistently appropriately elevated in excess of 300 therefore not consistent with hypoparathyroidism, likely underlying secondary hyperparathyroidism present as well
-Concern for PTH resistance, 2/2 to hypomag??
-magnesium levels are low, given IV Mag
-given IV calcium today
-agree with continuing oral calcium supplementation and calcitriol
-Increase calcitriol to 1.0mcg daily and maintain oral calcium supplements
-May require endocrinology consultation as outpatient
CKD 5:
-unclear if the patient is at his new baseline or if this is VICKEY on CKD V
-regardless patient denies anorexia, metallic taste in mouth, asterixis, increased confusion or other signs of renal failure
-appears slightly overloaded, agree with lasix 60mg IV BID for now.
-continue to trend Cr
-blood pressures higher than goal, likely in the setting of overload. improving with diuresis
-on abx for possible LLE cellulitis
-
-
Date of Service: February 26, 2024
CC / HPI / ROS
-
Chief Complaint:
CKD V
History of Present Illness:
hypoMg, hypoCa
Cr stable at 3.8, likely patient's new baseline
stable urine output
Review of Systems:
responding well to IV lasix
Labs
-
Labs:
WBC 5.5 10^3/uL (4.8-10.8) 02/25/24 11:27
RBC 2.84 10^6/uL (4.70-6.10) L 02/25/24 11:27
Hgb 8.7 g/dL (13.0-18.0) L D 02/25/24 11:27
Hct 25.5 % (39.0-52.0) L 02/25/24 11:27
Plt Count 163 10^3/uL (130-400) 02/25/24 11:27
Sodium 134 mmol/L (135-145) L 02/26/24 08:38
Potassium 4.2 mmol/L (3.5-5.1) 02/26/24 08:38
Chloride 98 mmol/L (98-107) 02/26/24 08:38
Carbon Dioxide 23 mmol/L (22-30) 02/26/24 08:38
BUN 75 mg/dl (9-20) H 02/26/24 08:38
Creatinine 3.8 mg/dL (0.7-1.3) H 02/26/24 08:38
eGFR 17.36 02/26/24 08:38
Glucose 138 mg/dl (70-99) H 02/26/24 08:38
Calcium 5.6 mg/dl (8.4-10.2) L* 02/26/24 08:38
Vac-A-Pfjwdeptzax Pept 6940 pg/ml 02/24/24 22:04
Albumin 3.7 g/dl (3.5-5.0) 02/24/24 22:39
Physical Exam
-
Vital Signs:
Vital Signs
Temp Pulse Resp BP Pulse Ox
97.9 F 58 14 132/74 95
02/26/24 11:00 02/26/24 11:00 02/26/24 11:00 02/26/24 11:00 02/26/24 12:47
Cardiovascular:: Regular rate and rhythm
Respiratory:: Bilateral: Coarse
Lung Excursion:: Normal
Abdomen:: Nontender and Soft
Bowel Sounds:: Normal
Extremity Edema:: +1: Bilateral:
Frederick Catheter: No
[2024-02-26 15:35] VITALS: BP 150/75
[2024-02-26 21:10] VITALS: BP 146/73
[2024-02-26] MEDS: CYMBALTA DELAYED RELEASE 30 MG PO (21:11)
[2024-02-26 23:28] VITALS: BP 144/68
[2024-02-27] MEDS: DILAUDID 0.5 MG IV ×5 (01:25→19:18)
[2024-02-27 05:26] VITALS: BP 127/66
[2024-02-27 06:00] VITALS: BMI 27.2
[2024-02-27 07:48] VITALS: BP 138/75
--- NOTE | 2024-02-27 07:56 | W.PN.CD ---
Today's Communication / Plan
-
nephrology directing diuresis
no new cardiac reccs
I will see again at your request.
Impression / Plan
-
LLE swelling:
-abx for cellulitis per primary
SOB:
-CHF treatment as below, also some concern for PNA on CXR- management per primary
Trrei-ur-pvwulkv HFpEF:
-he reports dry weight is 195. but remains volume overloaded at that weight.
-echo as below
-cont IV lasix for diuresis as per nephrology
-he has significant kidney disease as noted
CKD:
-nephrology is consulted
-follow with diuresis
-recently just had fistula placed
Anemia:
-s/p transfusion
-AM labs pending
HTN:
-follow with diuresis
Hx liver transplant
Subjective:
'I am really tired and itchy'
echo: CONCLUSIONS
Normal LV size and function with no regional wall motion abnormalities.
Left ventricular ejection fraction is 60% by volumetric assessment. Normal
diastolic function.
Normal right ventricular size and function.
Mild aortic regurgitation.
Mild tricuspid regurgitation.
Estimated pulmonary artery pressure of 47 mmHg assuming a right atrial pressure
of 3 mmHg.
Pleural effusion present.
No prior study for comparison.
Physical Exam
Vital Signs/Labs
Vital Signs
Temp Pulse Resp BP Pulse Ox
97.9 F 60 20 138/75 97
02/27/24 07:48 02/27/24 07:48 02/27/24 07:48 02/27/24 07:48 02/27/24 07:48
02/26/24 02/27/24 02/28/24
06:59 06:59 06:59
Actual Weight 89.953 kg 88.564 kg
02/25/24 11:27
Magnesium 1.3 mg/dl (1.6-2.3) L 02/25/24 11:27
02/24/24
22:04
Yla-G-Fziczeskugt Pept 6940
LAB Results
02/24/24 02/24/24
22: 22:21
Troponin I < 0.012 Cancelled
Physical Exam
Constitutional: No acute distress
Cardiovascular: Rhythm & rate is regular and Pedal edema present
Respiratory: Respiratory effort normal, Lungs clear to auscul., Wheeze Absent, Crackles Absent and Rhonchi Absent
Other: Skin (bleeding excoriations all over the arms) and Other
Data Reviewed
-
Date of Service: February 27, 2024
Medical Decision Making: Review of Case with other Provider
[2024-02-27 09:19] LABS: Blood Urea Nitrogen 71 mg/dl (9-20); Calcium 5.8 mg/dl (8.4-10.2); Carbon Dioxide 23 mmol/L (22-30); Chloride 97 mmol/L (98-107); Estimated Creatinine Clearance 22 ml/min; Glucose 105 mg/dl (70-99); Magnesium 1.5 mg/dl (1.6-2.3); Sodium 132 mmol/L (135-145); eGFR 17.36
[2024-02-27] MEDS: KLONOPIN 0.5 MG PO ×2 (09:26→21:02)
[2024-02-27] MEDS: PHOSLO 1334 MG PO ×3 (09:26→17:27)
[2024-02-27] MEDS: OSCAL CAL 500 2000 MG PO ×2 (09:26→21:02)
[2024-02-27] MEDS: ACTIGALL 300 MG PO ×3 (09:26→21:02)
[2024-02-27] MEDS: CELLCEPT 500 MG PO ×2 (09:26→21:03)
[2024-02-27] MEDS: ANCEF 2.5 MG IV ×2 (09:27→21:03)
[2024-02-27] MEDS: SODIUM BICARBONATE 650 MG PO ×2 (09:27→21:02)
[2024-02-27] MEDS: MAGNESIUM OXIDE 500 MG PO ×2 (09:27→21:02)
--- NOTE | 2024-02-27 09:27 | W.PN.HOSP.TC ---
Today's Communication/Plan
-
.
Assessment / Plan
Assessment / Plan
Physical Exam
General: No Apparent Distress and Appears Chronically Ill
HEENT: Normocephalic, Moist mucous membranes and Atraumatic
Respiratory: Clear
Cardiac: S1/S2 and Regular Rhythm; No Murmur or Rub
GI: Soft, Non Tender, Non Distended and Normal Bowel Sounds; No Organomegaly
Rectal: No bleeding
Genito-urinary: No costovertebral tender; No Frederick
Musculoskeletal: No Clubbing, No Cyanosis, Edema, Left Lower Extremity (4+), Edema, Right Lower Extremity (3+) and Other (LUE AVF, no bruit/thrill)
Skin: Warm, Rash, edema in both leg. Left LE is tender
Neuro: Awake, Alert, Oriented, AO x 3, No Motor Deficits and Nonfocal/grossly intact
Psych: Calm
#LLE Cellulitis
- Leukopenia WBC 3.6K on admission. Afebrile, though noting immunocompromised history
- S/P Zosyn in ER. Changed to Ancef, dosed renally.
- Clinically not impressive for cellulitis. Pain is same and not improving. Pt feels it started after fistula surgery. Normal looking left foot, warm and good pulse
- He is requesting an additional pain medication.
I will ask vascular to evaluate.
Hypocalcemia
c/w oral calcium and calcitriol
Acute on chronic HFpEF, decompensated
No sob or chest pain
Echo 8/5 LVEF 60%, Mild TR, Mild AR,
- Trop <0.012, no chest pain. EKG no acute ischemic change.
- BNP 6940. No RR distress or oxygen requirements. Check CXR
- Trend with IV diuresis. Trend I&O and daily wts
- Continue home BB
- Appreciate cardiology input.
VICKEY on CKD IV
- BUN/Cr 71/3.9. Baseline Cr 3.2-3.5.
- Unclear whether progression of known disease vs CHF contributing to cardiorenal etiology
- LUE AVF not yet matured
- Torsemide 100mg on hold. Ordered 80mg IV Lasix and 60mg IV BID thereafter
- Trend I&O and wts
- Obtain renal ultrasound
- Appreciate nephrology help
Acute/Chronic Anemia
- Hgb 7.1 g/dL. Previously 9.0 10/2023. MCV 88.7
- Suspect AOCD in setting of renal disease
- on iron/ferritin/tibc
- Consented and transfused 2u PRBC in ER
- Could be contributing to high output heart failure
Hyponatremia
Hypomagnesemia
HTN
- Trend with IV diuresis. Home torsemide on hold
- Continue home BB, Hydralazine
TRAVIS Cirrhosis S/P liver transplant 2020
Elevated Alk Phos (chronic)
- Tacrolimus on hold pending levels, resume accordingly
- Continue cellcept
- Continue home ursodiol
- Outpatient follow up wtih Dr. Muller
Anxiety/Depression - Continue home Klonopin. [place]-PDMP reviewed.
Acute/ Chronic Pain - Continue home oxycodone and oxycontin regimen. Will add 0.5mg IV dilaudid for BTP given new LLE pain/cellulitis.
Diet: Pt refusing renal or sodium restricted diet. C/W . Regular diet with 1200cc fluid restriction
DVT: Lovenox
Code Status: DNR/DNI, confirmed
Total time spent to see the patient, examine the patient on the floor, review data and lab results, discuss treatment plan with patient, nursing staff around 55 minutes.
Anticipated Discharge: 24 - 48 hours
Subjective/Interval History
-
Date of Service: February 27, 2024
Objective Data
-
Labs:
Laboratory Results
02/27/24
07:55
Sodium 132 L
Potassium 4.0
Chloride 97 L
Carbon Dioxide 23
BUN 71 H
Creatinine 3.8 H
Glucose 105 H
Calcium 5.8 L*
Vital Signs:
Vital Signs
Temp Pulse Resp BP Pulse Ox
97.9 F 60 20 138/75 97
02/27/24 07:48 02/27/24 07:48 02/27/24 07:48 02/27/24 07:48 02/27/24 07:48
I&O
02/26/24 02/27/24 02/28/24
06:59 06:59 06:59
Intake Total 720 / 720 1160 / 1160
Output Total 4050 / 4050 2550 / 2550
Balance -3330 / -3330 -1390 / -1390
[2024-02-27] MEDS: LASIX 60 MG IV ×2 (09:28→17:27)
[2024-02-27] MEDS: COREG 6.25 MG PO ×2 (09:29→21:03)
[2024-02-27] MEDS: OXYCONTIN (CONTROLLED RELEASE) 20 MG PO ×2 (09:29→21:04)
[2024-02-27] MEDS: ROXICODONE 10 MG PO ×2 (09:29→21:04)
[2024-02-27] MEDS: APRESOLINE 50 MG PO ×2 (09:29→17:26)
[2024-02-27] MEDS: NON-FORMULARY ITEM 12 MG PO (09:29)
--- NOTE | 2024-02-27 10:25 | CON.VAS ---
Consultation
Consultation Request
Date/Time Consultation Performed: 02/27/2024 1035
Requesting Provider: Hospitalist
Performing Provider: Ayesha Lou, JOCE-C for Juan Velez MD
Reason for Consultation: LLE pain
Medical History
-
Chief Complaint: Left lower extremity pain and swelling
History of Present Illness:
This is a 59-year-old male with significant past medical history of heart failure, hypertension, anxiety, liver failure status post liver transplant, chronic kidney disease, anemia, and esophageal varices who presented to the ED on 02/25/2024 with
reports of severe left lower extremity pain and swelling, he was ultimately admitted for acute exacerbation of his chronic kidney disease and to further evaluate reports of left lower extremity pain/edema. Vascular surgery was consulted as a
question of arterial disease playing a role in his left lower extremity pain. Of note he underwent left upper extremity AV fistula creation (Dr. Murphy at [facility]) on February 12. He notes about a week post procedurally he developed left leg
pain, which is constant below the knee pain in his calf and ankle. He notes increased pain with flexion extension of his ankle. Increased pain with ambulation, just with pressure onto the foot i.e. initiation of walking or standing. It does not
have to do with the distance of walking. Not specifically reporting pain in the foot or the toes themselves. No prior history of such pain. He also notices that this pain is persistent and consistent even at rest, but exacerbated by palpation.
Ultrasound venous done for DVT is negative.
Past Medical History
Past Medical History: CHF (HFpEF), HTN, Psychiatric (Anxiety) and Other (Esophageal varices, SMV thrombus and portal vein, TRAVIS cirrhosis, chronic pain, anemia, CKD IV)
Past Surgical History: Appendectomy, Orthopedic (Right leg surgery, Right shoulder surgery, Right hand surgery) and Other (Left upper extremity AV fistula creation, liver transplant, hernia repair x3)
Social History
Tobacco: Former Smoker
Alcohol: None
Allergies / Home Medications
Allergy/AdvReac Type Severity Reaction Status Date / Time
Fish Containing Products Allergy 'I get Verified 02/24/24 21:08
high'
morphine Allergy Itching Verified 02/24/24 21:08
rabeprazole [From Aciphex] Allergy Rash Verified 02/24/24 21:08
shellfish derived Allergy 'I get Verified 02/24/24 21:08
high'
tizanidine Allergy Unknown Verified 02/24/24 21:08
�Medication �Instructions �Recorded �Confirmed �Type
calcium carbonate 2,000 mg PO BID Supplement 03/07/23 02/25/24 History
carvedilol 6.25 mg tablet 6.25 mg PO Q12H Blood Pressure 03/07/23 02/25/24 History
clonazepam 0.5 mg tablet (Klonopin) 0.5 mg PO Q12H Mental 03/07/23 02/25/24 History
Health/Anxiety
hydralazine 50 mg tablet 50 mg PO Q8H Blood Pressure 03/07/23 02/25/24 History
mycophenolate mofetil 500 mg 500 mg PO Q12H ANTI-REJECTION 03/07/23 02/25/24 History
tablet (CellCept)
calcium acetate(phosphat bind) 667 1,334 mg PO TID Kidney Disease 09/05/23 02/25/24 History
mg capsule
duloxetine 30 mg capsule,delayed 30 mg PO HS Mental Health/Anxiety 09/05/23 02/25/24 History
release
magnesium oxide 400 mg (241.3 mg 400 mg PO BID Electrolyte Repletion 09/05/23 02/25/24 History
magnesium) tablet
oxycodone 10 mg tablet 10 mg PO BID 09/05/23 02/25/24 History
oxycodone 20 mg tablet,crush 20 mg PO BID Pain 09/05/23 02/25/24 History
resistant,extended release 12 hr
(OxyContin)
tacrolimus 4 mg tablet,extended 12 mg PO DAILY ANTI-REJECTION 09/05/23 02/25/24 History
release 24 hr (Envarsus XR)
ursodiol 300 mg capsule 300 mg PO TID GALLSTONE PREVENTION 09/05/23 02/25/24 History
Colace 100 mg PO PRN PRN constipation 02/25/24 02/25/24 History
Miralax 17 g PO PRN PRN constipation 02/25/24 02/25/24 History
calcitriol 1.25 mcg PO DAILY 02/25/24 02/25/24 History
senna 8.6 mg PO PRN PRN constipation 02/25/24 02/25/24 History
sodium bicarbonate 650 mg PO BID 02/25/24 02/25/24 History
torsemide 100 mg tablet 100 mg PO DAILY 02/25/24 02/25/24 History
Review of Systems
-
History Source: Patient
Constitutional: Reports No Symptoms
EENT: Reports No Symptoms
Respiratory: Reports No Symptoms
Cardiac: Reports No Symptoms
Abdomen/GI: Reports No Symptoms
: Reports No Symptoms
Musculoskeletal: Reports Edema (Left upper extremity and lower extremity swelling) and Other (Left lower extremity pain at rest or with ambulation particularly when touched)
Skin: Reports No Symptoms
Neurological: Reports No Symptoms
Endocrine: Reports No Symptoms
Physical Exam
Vital Signs
Temp Pulse Resp BP Pulse Ox
97.9 F 60 20 138/75 97
02/27/24 07:48 02/27/24 09:28 02/27/24 07:48 02/27/24 09:28 02/27/24 07:48
Lab Results
02/25/24 11:27
02/27/24 07:55
Troponin I Cancelled 02/24/24 22:21
Zjk-Y-Zinreazbwpn Pept 6940 pg/ml 02/24/24 22:04
Physical Exam
General: No Apparent Distress
HEENT: Normocephalic, Anicteric and Atraumatic
Respiratory: Non Labored Respirations
Cardiac: Negative JVD
GI: Soft, Non Tender and Non Distended
Musculoskeletal: Edema (Trace left upper extremity edema, +1 bilateral lower extremity edema) and Other (eft upper extremity fistula creation incision is clean dry and intact, underlying hematoma noted, moderate but soft. No pulsatile mass. No
thrill on palpation of the fistula (unclear if this is a brachiobasilic or brachiocephalic) cannot palpate a thrill nor auscultate a bruit)
Skin: Warm and Other (Healing incision over recently created left upper extremity AV fistula)
Neuro: AO x 3
Pulses: Bilateral Femoral: +2, Bilateral Dorsalis Pedis: +2 and Bilateral Posterior Tibial: +2
Assessment / Plan
-
Assessment: 5-year-old male with chief complaint of left lower extremity edema and pain, low suspicion for peripheral arterial etiology for pain
Plan:
1. Left leg pain. Does not seem arterial or ischemic in nature based on history and exam. Foot appears well-perfused. Will obtain baseline arterial duplex imaging with TBI (patient will not tolerate ANNA MARIE) for conformation. Would explore other
nonvascular etiologies.
2. End-stage renal disease, approaching hemodialysis. Status post left upper extremity AV fistula creation, suspect fistula is thrombosed. Will obtain ultrasound to clarify. We can arrange follow-up if he wishes to follow-up with Vascular
Surgical Team in the outpatient setting. Otherwise if he decides to follow-up with his prior vascular surgeon he can do that as well.
--- NOTE | 2024-02-27 10:35 | W.PN.UPDATE ---
Update Note
Progress Note Update
Seen and examined with JOCE Lou. Full consultation to follow. Briefly, he is a 59-year-old male we are asked to see regarding left leg pain. Extensive medical history including heart failure with preserved ejection fraction, hypertension, CKD
stage IV, TRAVIS cirrhosis status post orthotopic liver transplant 2020. He underwent left upper extremity AV fistula creation (Jeffrey at [facility]) on February 12. He notes about a week post procedurally he developed left leg pain. Is pretty
constant below the knee pain in his calf and ankle. He notes increased pain with flexion extension of his ankle. Increased pain with ambulation, just with pressure onto the foot i.e. initiation of walking or standing. It does not have to do with
the distance of walking. Not specifically reporting pain in the foot or the toes themselves. No prior history of such pain.
On exam/ He is awake and alert. Head is normocephalic and atraumatic. Eyes are anicteric. Neck is soft without jugular venous distention. Left upper extremity fistula creation incision is clean dry and intact, underlying hematoma noted, moderate
but soft. No pulsatile mass. No thrill on palpation of the fistula (unclear if this is a brachiobasilic or brachiocephalic, but I cannot palpate a thrill nor can I hear a bruit in either distribution). Left hand is pink and warm. Lower extremity
with 2+ femoral, popliteal, DP pulses palpable bilaterally, 2+ right sided PT pulse as well. Left side PT unable to examine secondary to significant tenderness at the ankle when I press down. There is tenderness in his calf mainly on the anterior
pretibial area and down to the level of the ankle. His left foot is warm and pink and well-perfused. No evidence of rubor or ulcerations.
Ultrasound venous done for DVT is negative.
Plan/
1. Left leg pain. Does not seem arterial or ischemic in nature at all based on history and exam. Foot appears well-perfused. Will obtain baseline arterial duplex imaging with TBI (patient will not tolerate ANNA MARIE). Just for confirmation. But I do
not think this is an arterial mediated etiology of pain. Would explore other nonvascular etiologies.
2. End-stage renal disease, approaching hemodialysis. Status post left upper extremity AV fistula creation. To my exam fistula is thrombosed. Will obtain ultrasound to clarify. Discussed with him that if it is would recommend follow-up with his
outside vascular surgeon who performed the procedure for new access creation. Patient notes that he actually wants to transition all his care over to here and does not wish to go back over there. We can arrange follow-up if he wishes to follow-up
with me here in the outpatient setting. Otherwise if he decides to follow-up with his prior vascular surgeon he can do that as well.
Discussed entirety of plan with hospitalist Dr. Mojica over the phone.
[2024-02-27 11:46] VITALS: BP 130/78
--- NOTE | 2024-02-27 12:15 | W.PN.UPDATE ---
Update Note
Progress Note Update
Noninvasive ultrasound studies reviewed. Peripheral arterial lower extremity studies are essentially normal. Normal ANNA MARIE/TBI's. No evidence of significant stenosis bilateral lower extremity arteries. I suspected, his left leg pain is not ischemic
or arterial in nature. No indication for any further vascular workup at this time.
Hemodialysis ultrasound demonstrates occluded left upper extremity AV fistula. If patient does not wish to follow-up with prior vascular surgeon for creation of new AV access, he can follow-up with me in the office.
Will sign off. Please call with questions.
--- NOTE | 2024-02-27 12:56 | W.PN.NEPH.PH ---
Today's Communication / Plan
-
Maintain diuresis
Continue to replete calcium
Assessment/Plan
-
Impression:
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 according to patient in 4s
Hypocalcemia
Edema
Proteinuria
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
Subdural hematoma January 2023 status post thuan hole
Hypertension, multidrug
Seizure disorder on oxcarbazepine
Hypothyroidism with normal TSH
Chronic back pain
Chronic opioid dependence
Anxiety/depression
Chronic heart failure, type unknown:torsemide 60mg BID
Inguinal herniorrhaphy
Former smoker
Daily marijuana
Plan:
Hypocalcemia:
-PTH has been persistently appropriately elevated in excess of 300 therefore not consistent with hypoparathyroidism, likely underlying secondary hyperparathyroidism present as well
-Concern for PTH resistance, 2/2 to hypomag??
-magnesium levels are low, given IV Mag
-given IV calcium today again
-agree with continuing oral calcium supplementation and calcitriol
-Increased calcitriol to 1.0mcg daily and maintain oral calcium supplements
-May require endocrinology consultation as outpatient
CKD 5:
-unclear if the patient is at his new baseline or if this is VICKEY on CKD V
Creatinine is at 3.8 no need for acute dialysis
-regardless patient denies anorexia, metallic taste in mouth, asterixis, increased confusion or other signs of renal failure
-appears slightly overloaded, agree with lasix 60mg IV BID for now.
-continue to trend Cr
-blood pressures higher than goal, likely in the setting of overload. improving with diuresis
-on abx for possible LLE cellulitis
-
-
Date of Service: February 27, 2024
CC / HPI / ROS
-
Chief Complaint:
CKD V
History of Present Illness:
hypoMg, hypoCa
Cr stable at 3.8, likely patient's new baseline
stable urine output
Hyponatremia down to 132
Review of Systems:
responding well to IV lasix
Nonoliguric weights down
Labs
-
Labs:
WBC 5.5 10^3/uL (4.8-10.8) 02/25/24 11:27
RBC 2.84 10^6/uL (4.70-6.10) L 02/25/24 11:27
Hgb 8.7 g/dL (13.0-18.0) L D 02/25/24 11:27
Hct 25.5 % (39.0-52.0) L 02/25/24 11:27
Plt Count 163 10^3/uL (130-400) 02/25/24 11:27
Sodium 132 mmol/L (135-145) L 02/27/24 07:55
Potassium 4.0 mmol/L (3.5-5.1) 02/27/24 07:55
Chloride 97 mmol/L (98-107) L 02/27/24 07:55
Carbon Dioxide 23 mmol/L (22-30) 02/27/24 07:55
BUN 71 mg/dl (9-20) H 02/27/24 07:55
Creatinine 3.8 mg/dL (0.7-1.3) H 02/27/24 07:55
eGFR 17.36 02/27/24 07:55
Glucose 105 mg/dl (70-99) H 02/27/24 07:55
Calcium 5.8 mg/dl (8.4-10.2) L* 02/27/24 07:55
Hnd-U-Gtbbxhoendy Pept 6940 pg/ml 02/24/24 22:04
Albumin 3.7 g/dl (3.5-5.0) 02/24/24 22:39
Physical Exam
-
Vital Signs:
Vital Signs
Temp Pulse Resp BP Pulse Ox
98 F 75 18 130/78 97
02/27/24 11:46 02/27/24 11:46 02/27/24 11:46 02/27/24 11:46 02/27/24 11:46
Cardiovascular:: Regular rate and rhythm
Respiratory:: Bilateral: Coarse
Lung Excursion:: Normal
Abdomen:: Nontender and Soft
Bowel Sounds:: Normal
Extremity Edema:: +1: Bilateral:
Frederick Catheter: No
--- NOTE | 2024-02-27 14:49 | CM ---
Patient seen bedside, reports no needs to CM at this time. CM will continue to follow for all discharge planning needs.
Plan; home no needs, pending further medical treatment.
[2024-02-27 15:11] VITALS: BP 112/65
[2024-02-27 19:00] VITALS: BP 134/75
[2024-02-27] MEDS: CYMBALTA DELAYED RELEASE 30 MG PO (21:02)
[2024-02-27 23:00] VITALS: BP 106/76
[2024-02-27] MEDS: CALAMINE LOTION 180 ML TOPICAL (23:44)
[2024-02-28] VITALS (9 sets, daily range): BP systolic 112–155; BP diastolic 57–83; PULSE 74–75; O2SAT 95–96; BMI 26.9
[2024-02-28] MEDS: DILAUDID 0.5 MG IV ×5 (00:14→23:20)
[2024-02-28] MEDS: APRESOLINE 50 MG PO ×4 (00:50→23:20)
[2024-02-28 08:29] LABS: Blood Urea Nitrogen 74 mg/dl (9-20); Calcium 5.9 mg/dl (8.4-10.2); Carbon Dioxide 24 mmol/L (22-30); Chloride 97 mmol/L (98-107); Estimated Creatinine Clearance 23 ml/min; Glucose 100 mg/dl (70-99); Potassium 4.3 mmol/L (3.5-5.1); Sodium 132 mmol/L (135-145); eGFR 18.52
--- NOTE | 2024-02-28 09:02 | W.PN.HOSP.TC ---
Today's Communication/Plan
-
.
Assessment / Plan
Assessment / Plan
Physical Exam
General: No Apparent Distress and Appears Chronically Ill
HEENT: Normocephalic, Moist mucous membranes and Atraumatic
Respiratory: Clear
Cardiac: S1/S2 and Regular Rhythm; No Murmur or Rub
GI: Soft, Non Tender, Non Distended and Normal Bowel Sounds; No Organomegaly
Rectal: No bleeding
Genito-urinary: No costovertebral tender; No Frederick
Musculoskeletal: No Clubbing, No Cyanosis, Edema, Left Lower Extremity (4+), Edema, Right Lower Extremity (3+) and Other (LUE AVF, no bruit/thrill)
Skin: Warm, Rash, edema in both leg. Left LE is tender
Neuro: Awake, Alert, Oriented, AO x 3, No Motor Deficits and Nonfocal/grossly intact
Psych: Calm
#LLE Cellulitis
- Leukopenia WBC 3.6K on admission. Afebrile, though noting immunocompromised history
- S/P Zosyn in ER. Changed to Ancef, dosed renally.
- Clinically not impressive for cellulitis. Pain is same and not improving. Pt feels it started after fistula surgery. Normal looking left foot, warm and good pulse
- He is requesting an additional pain medication.
- Blood culture is NGTD. Will stop IV Abx 03/01 to finish 5 days for presumed cellulitis.
Seen by vascular doctor, pain is not ischemic, can follow in office for fistula treatment.
Hypocalcemia
c/w oral calcium and calcitriol
Given IV calcium
Acute on chronic HFpEF, decompensated
No sob or chest pain
Echo 02/24 LVEF 60%, Mild TR, Mild AR,
- Trop <0.012, no chest pain. EKG no acute ischemic change.
- BNP 6940. No RR distress or oxygen requirements. Check CXR
- Off IV Lasix, started on Torsemide.
- Continue home BB
- Appreciate cardiology input.
VICKEY on CKD IV
- BUN/Cr 71/3.9. Baseline Cr 3.2-3.5.
- Unclear whether progression of known disease vs CHF contributing to cardiorenal etiology
- LUE AVF not yet matured
- Torsemide 100mg on hold. Ordered 80mg IV Lasix and 60mg IV BID thereafter
- Trend I&O and wts
- Obtain renal ultrasound
- Primary nut culler Dr Spears
- Appreciate nephrology help
Acute/Chronic Anemia
- Hgb 7.1 g/dL. Previously 9.0 10/2023. MCV 88.7
- Suspect AOCD in setting of renal disease
- on iron/ferritin/tibc
- Consented and transfused 2u PRBC in ER
- Could be contributing to high output heart failure
Hyponatremia
Hypomagnesemia
replace with IV Mg.
HTN
- Trend with IV diuresis. Home torsemide on hold
- Continue home BB, Hydralazine
TRAVIS Cirrhosis S/P liver transplant 2020
Elevated Alk Phos (chronic)
- Tacrolimus on hold pending levels, resume accordingly
- Continue cellcept
- Continue home ursodiol
- Outpatient follow up wtih Dr. Muller
Anxiety/Depression - Continue home Klonopin. [place]-PDMP reviewed.
Acute/ Chronic Pain - Continue home oxycodone and oxycontin regimen. Will add 0.5mg IV dilaudid for BTP given new LLE pain/cellulitis.
Diet: Pt refusing renal or sodium restricted diet. C/W . Regular diet with 1200cc fluid restriction
DVT: Lovenox
Code Status: DNR/DNI, confirmed
Total time spent to see the patient, examine the patient on the floor, review data and lab results, discuss treatment plan with patient, nursing staff around 55 minutes.
Anticipated Discharge: 24 - 48 hours
Subjective/Interval History
-
Date of Service: February 28, 2024
no chest pain
No sob
Objective Data
-
Labs:
Laboratory Results
02/28/24
07:35
Sodium 132 L
Potassium 4.3
Chloride 97 L
Carbon Dioxide 24
BUN 74 H
Creatinine 3.6 H
Glucose 100 H
Calcium 5.9 L*
Vital Signs:
Vital Signs
Temp Pulse Resp BP Pulse Ox
98.1 F 57 12 143/72 98
02/28/24 07:45 02/28/24 07:45 02/28/24 07:45 02/28/24 07:45 02/28/24 07:45
I&O
02/27/24 02/28/24 02/29/24
06:59 06:59 06:59
Intake Total 1160 / 1160 1080 / 1080
Output Total 2550 / 2550 1750 / 1750
Balance -1390 / -1390 -670 / -670
[2024-02-28] MEDS: NON-FORMULARY ITEM 12 MG PO (09:51)
[2024-02-28] MEDS: ANCEF 2.5 MG IV ×2 (09:52→21:39)
[2024-02-28] MEDS: OXYCONTIN (CONTROLLED RELEASE) 20 MG PO ×2 (09:53→21:39)
[2024-02-28] MEDS: ROXICODONE 10 MG PO ×2 (09:53→21:39)
[2024-02-28] MEDS: CELLCEPT 500 MG PO ×2 (09:54→21:38)
[2024-02-28] MEDS: PHOSLO 1334 MG PO ×3 (09:54→17:16)
[2024-02-28] MEDS: ACTIGALL 300 MG PO ×3 (09:54→21:39)
[2024-02-28] MEDS: KLONOPIN 0.5 MG PO ×2 (09:54→21:39)
[2024-02-28] MEDS: SODIUM BICARBONATE 650 MG PO ×2 (09:55→21:39)
[2024-02-28] MEDS: OSCAL CAL 500 2000 MG PO ×2 (09:55→21:39)
[2024-02-28] MEDS: COREG 6.25 MG PO ×2 (09:56→21:38)
[2024-02-28] MEDS: MAGNESIUM OXIDE 500 MG PO ×2 (09:56→21:38)
[2024-02-28] MEDS: LASIX 60 MG IV (09:56)
--- NOTE | 2024-02-28 13:54 | W.PN.NEPH.PH ---
Today's Communication / Plan
-
- oral trosemide
- IV Mg and Ca
Assessment/Plan
-
Impression:
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 according to patient in 4s
Hypocalcemia
Edema
Proteinuria
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
Subdural hematoma January 2023 status post thuan hole
Hypertension, multidrug
Seizure disorder on oxcarbazepine
Hypothyroidism with normal TSH
Chronic back pain
Chronic opioid dependence
Anxiety/depression
Chronic heart failure, type unknown:torsemide 60mg BID
Inguinal herniorrhaphy
Former smoker
Daily marijuana
Plan:
Hypocalcemia:
-PTH has been persistently appropriately elevated in excess of 300 therefore not consistent with hypoparathyroidism, likely underlying secondary hyperparathyroidism present as well
-Concern for PTH resistance, 2/2 to hypomag??
-magnesium levels are low, will trial another dose of IV Mg and IV calcium today
-agree with continuing oral calcium supplementation and calcitriol
-Increased calcitriol to 1.0mcg daily and maintain oral calcium supplements
-May require endocrinology consultation as outpatient
CKD 5:
-unclear if the patient is at his new baseline or if this is VICKEY on CKD V
Creatinine is at 3.6 no need for acute dialysis
-regardless patient denies anorexia, metallic taste in mouth, asterixis, increased confusion or other signs of renal failure
-more euvolemic now, will transition back to 100mg torsemide
-continue to trend Cr
-blood pressures higher than goal, likely in the setting of overload. improving with diuresis
-on abx for possible LLE cellulitis
-
-
Date of Service: February 28, 2024
CC / HPI / ROS
-
Chief Complaint:
CKD V
History of Present Illness:
hypoMg, hypoCa
Cr stable at 3.6, likely patient's new baseline
stable urine output
Hyponatremia down to 132
Review of Systems:
responding well to IV lasix
Nonoliguric weights down
Labs
-
Labs:
WBC 5.5 10^3/uL (4.8-10.8) 02/25/24 11:27
RBC 2.84 10^6/uL (4.70-6.10) L 02/25/24 11:27
Hgb 8.7 g/dL (13.0-18.0) L D 02/25/24 11:27
Hct 25.5 % (39.0-52.0) L 02/25/24 11:27
Plt Count 163 10^3/uL (130-400) 02/25/24 11:27
Sodium 132 mmol/L (135-145) L 02/28/24 07:35
Potassium 4.3 mmol/L (3.5-5.1) 02/28/24 07:35
Chloride 97 mmol/L (98-107) L 02/28/24 07:35
Carbon Dioxide 24 mmol/L (22-30) 02/28/24 07:35
BUN 74 mg/dl (9-20) H 02/28/24 07:35
Creatinine 3.6 mg/dL (0.7-1.3) H 02/28/24 07:35
eGFR 18.52 02/28/24 07:35
Glucose 100 mg/dl (70-99) H 02/28/24 07:35
Calcium 5.9 mg/dl (8.4-10.2) L* 02/28/24 07:35
Pwa-A-Fuzkfgpdbsi Pept 6940 pg/ml 02/24/24 22:04
Albumin 3.7 g/dl (3.5-5.0) 02/24/24 22:39
Physical Exam
-
Vital Signs:
Vital Signs
Temp Pulse Resp BP Pulse Ox
98.2 F 59 16 128/75 97
02/28/24 11:14 02/28/24 11:14 02/28/24 11:14 02/28/24 11:14 02/28/24 13:42
Cardiovascular:: Regular rate and rhythm
Respiratory:: Bilateral: Coarse
Lung Excursion:: Normal
Abdomen:: Nontender and Soft
Bowel Sounds:: Normal
Extremity Edema:: None: Bilateral:
Frederick Catheter: No
[2024-02-28] MEDS: CALCIUM GLUCONATE 100 IV (14:03)
[2024-02-28] MEDS: MAGNESIUM SULFATE 100 IV (14:07)
--- NOTE | 2024-02-28 15:08 | PTOTSP ---
pt currently requires supervision to no assistance to complete simple ADLs, functional transfers, ambulation. pt demonstrates no acute OT needs, will sign off.
--- NOTE | 2024-02-28 15:26 | CM ---
Patient seen bedside, discussed PT recommendation of HH vs outpatient therapy. Patient declining both. Patient reports no other needs to CM at this time. CM will continue to follow for all discharge planning needs.
Plan; home no needs, declining HH/outpatient PT.
[2024-02-28] MEDS: CYMBALTA DELAYED RELEASE 30 MG PO (21:39)
[2024-02-29] VITALS (7 sets, daily range): BP systolic 129–165; BP diastolic 66–83; PULSE 74; O2SAT 95; BMI 26.8
[2024-02-29] MEDS: DILAUDID 0.5 MG IV ×3 (03:57→17:32)
[2024-02-29] MEDS: APRESOLINE 50 MG PO ×3 (08:14→23:57)
[2024-02-29] MEDS: MAGNESIUM OXIDE 500 MG PO ×2 (08:14→20:14)
[2024-02-29] MEDS: CELLCEPT 500 MG PO ×2 (08:14→20:14)
[2024-02-29] MEDS: PHOSLO 1334 MG PO ×3 (08:14→16:19)
[2024-02-29] MEDS: ACTIGALL 300 MG PO ×3 (08:16→21:48)
[2024-02-29] MEDS: DEMADEX 100 MG PO (08:16)
[2024-02-29] MEDS: OSCAL CAL 500 2000 MG PO ×2 (08:17→20:14)
[2024-02-29] MEDS: NON-FORMULARY ITEM 12 MG PO (08:17)
[2024-02-29] MEDS: KLONOPIN 0.5 MG PO ×2 (08:18→20:14)
[2024-02-29] MEDS: SODIUM BICARBONATE 650 MG PO ×2 (08:18→20:14)
[2024-02-29] MEDS: ROXICODONE 10 MG PO ×2 (08:19→20:14)
[2024-02-29] MEDS: OXYCONTIN (CONTROLLED RELEASE) 20 MG PO ×2 (08:20→20:14)
[2024-02-29] MEDS: COREG 6.25 MG PO ×2 (08:20→20:13)
[2024-02-29] MEDS: ANCEF 2.5 MG IV ×2 (08:25→20:13)
[2024-02-29 10:04] LABS: Hematocrit 24.8 % (39.0-52.0); Hemoglobin 8.3 g/dL (13.0-18.0); Mean Corp Hgb Conc. 33.5 g/dL (33.0-37.0); Mean Corpuscular Hgb 29.4 pg (27.0-31.0); Mean Corpuscular Volume 87.9 fL (80.0-94.0); Mean Platelet Volume 11.5 fL (7.4-10.4); Platelet Count 133 10^3/uL (130-400); Red Blood Cell Count 2.82 10^6/uL (4.70-6.10); Red Cell Dist. Width 14.1 % (11.5-14.5); White Blood Cell Count 3.3 10^3/uL (4.8-10.8)
--- NOTE | 2024-02-29 10:23 | W.PN.HOSP.TC ---
Today's Communication/Plan
-
Await labs today
Check x ray of left Ankle
Assessment / Plan
Assessment / Plan
Physical Exam
General: No Apparent Distress and Appears Chronically Ill
HEENT: Normocephalic, Moist mucous membranes and Atraumatic
Respiratory: Clear
Cardiac: S1/S2 and Regular Rhythm; No Murmur or Rub
GI: Soft, Non Tender, Non Distended and Normal Bowel Sounds; No Organomegaly
Rectal: No bleeding
Genito-urinary: No costovertebral tender; No Frederick
Musculoskeletal: No Clubbing, No Cyanosis, Edema, Left Lower Extremity (4+), Edema, Right Lower Extremity (3+) and Other (LUE AVF, no bruit/thrill)
Skin: Warm, Rash, edema in both leg. Left LE is tender
Neuro: Awake, Alert, Oriented, AO x 3, No Motor Deficits and Nonfocal/grossly intact
Psych: Calm
# Left ankle pain
Seems mildly swollen ( both ankles are swollen) but not red skin seen, limited movement. Will do x ray
#LLE Cellulitis
- Leukopenia WBC 3.6K on admission. Afebrile, though noting immunocompromised history
- S/P Zosyn in ER. Changed to Ancef, dosed renally.
- Clinically not impressive for cellulitis. Pain is same and not improving. Pt feels it started after fistula surgery. Normal looking left foot, warm and good pulse
- He is requesting an additional pain medication.
- Blood culture is NGTD. Will stop IV Abx 03/01 to finish 5 days for presumed cellulitis.
Seen by vascular doctor, pain is not ischemic, can follow in office for fistula treatment.
Hypocalcemia
c/w oral calcium and calcitriol
Given IV calcium
Acute on chronic HFpEF, decompensated
No sob or chest pain
Echo 8 LVEF 60%, Mild TR, Mild AR,
- Trop <0.012, no chest pain. EKG no acute ischemic change.
- BNP 6940. No RR distress or oxygen requirements. Check CXR
- Off IV Lasix, started on Torsemide.
- Continue home BB
- Appreciate cardiology input.
VICKEY on CKD IV
- BUN/Cr 71/3.9. Baseline Cr 3.2-3.5.
- Unclear whether progression of known disease vs CHF contributing to cardiorenal etiology
- s/p IV Lasix.
- Trend I&O and wts
- c/w sodium bicarbonate
- Abdominal ultrasound: No obstructive uropathy or nephrolithiasis.
- Primary remote pilot operator Dr Spears
- Appreciate nephrology help
Acute/Chronic Anemia of chronic disease
- Hgb around 8
- Suspect AOCD in setting of renal disease
- on iron/ferritin/tibc
- Consented and transfused 2u PRBC in ER
- Could be contributing to high output heart failure
Hyponatremia
Hypomagnesemia
replace with IV Mg.
# Essential HTN
- s/p IV diuresis. Home torsemide is resumed.
- Continue home BB, Hydralazine
TRAVIS Cirrhosis S/P liver transplant 2020
Elevated Alk Phos (chronic)
- Tacrolimus is resumed. Level is normal.
- Continue cellcept
- Continue home ursodiol
- Outpatient follow up with Dr. Muller
Anxiety/Depression - Continue home Klonopin. [place]PD[place].
Acute/ Chronic Pain - Continue home oxycodone and oxycontin regimen. Will add 0.5mg IV dilaudid for BTP given new LLE pain/cellulitis.
Diet: Pt refusing renal or sodium restricted diet. C/W . Regular diet with 1200cc fluid restriction
DVT: sq heparin, pt refuses it despite knowing the risks. will stop it.
Code Status: DNR/DNI, confirmed
Total time spent to see the patient, examine the patient on the floor, review data and lab results, discuss treatment plan with patient, nursing staff around 55 minutes.
Anticipated Discharge: Within 24 hours
Subjective/Interval History
-
Date of Service: February 29, 2024
Left ankle pain
No chest pain
Objective Data
-
Labs:
Laboratory Results
02/29/24
09:46
WBC 3.3 L
Hgb 8.3 L
Hct 24.8 L
Plt Count 133
Sodium Pending
Potassium Pending
Chloride Pending
Carbon Dioxide Pending
BUN Pending
Creatinine Pending
Glucose Pending
Calcium Pending
Vital Signs:
Vital Signs
Temp Pulse Resp BP Pulse Ox
97.8 F 59 18 161/83 97
02/29/24 08:10 02/29/24 08:14 02/29/24 08:10 02/29/24 08:14 02/29/24 08:10
I&O
02/28/24 02/29/24 03/01/24
06:59 06:59 06:59
Intake Total 1080 / 1080 960 / 960
Output Total 1750 / 1750 800 / 800
Balance -670 / -670 160 / 160
[2024-02-29 12:16] LABS: Blood Urea Nitrogen 75 mg/dl (9-20); Calcium 6.3 mg/dl (8.4-10.2); Carbon Dioxide 22 mmol/L (22-30); Chloride 97 mmol/L (98-107); Estimated Creatinine Clearance 24 ml/min; Glucose 139 mg/dl (70-99); Potassium 4.6 mmol/L (3.5-5.1); Sodium 133 mmol/L (135-145); eGFR 19.16
--- NOTE | 2024-02-29 12:52 | W.PN.NEPH.PH ---
Today's Communication / Plan
-
calcium IV
Assessment/Plan
-
Impression:
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 according to patient in 4s
Hypocalcemia
Edema
Proteinuria
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
Subdural hematoma January 2023 status post thuan hole
Hypertension, multidrug
Seizure disorder on oxcarbazepine
Hypothyroidism with normal TSH
Chronic back pain
Chronic opioid dependence
Anxiety/depression
Chronic heart failure, type unknown:torsemide 60mg BID
Inguinal herniorrhaphy
Former smoker
Daily marijuana
Plan:
increase calcitriol
continue calcium carbonate
follow BMP
follow Mg
no emergent HD needs
-
-
Date of Service: February 29, 2024
CC / HPI / ROS
-
Chief Complaint:
CKD V
History of Present Illness:
hypoMg, hypoCa
Cr stable at 3.5, likely patient's new baseline
stable urine output
Calcium better at 6.3 on active vitD/CaCO3
Hyponatremia stable 133
Review of Systems:
no CP/SOB
Labs
-
Labs:
WBC 3.3 10^3/uL (4.8-10.8) L 02/29/24 09:46
RBC 2.82 10^6/uL (4.70-6.10) L 02/29/24 09:46
Hgb 8.3 g/dL (13.0-18.0) L 02/29/24 09:46
Hct 24.8 % (39.0-52.0) L 02/29/24 09:46
Plt Count 133 10^3/uL (130-400) 02/29/24 09:46
Sodium 133 mmol/L (135-145) L 02/29/24 09:46
Potassium 4.6 mmol/L (3.5-5.1) 02/29/24 09:46
Chloride 97 mmol/L (98-107) L 02/29/24 09:46
Carbon Dioxide 22 mmol/L (22-30) 02/29/24 09:46
BUN 75 mg/dl (9-20) H 02/29/24 09:46
Creatinine 3.5 mg/dL (0.7-1.3) H 02/29/24 09:46
eGFR 19.16 02/29/24 09:46
Glucose 139 mg/dl (70-99) H 02/29/24 09:46
Calcium 6.3 mg/dl (8.4-10.2) L* 02/29/24 09:46
Unx-Z-Czsbiejzbmk Pept 6940 pg/ml 02/24/24 22:04
Albumin 3.7 g/dl (3.5-5.0) 02/24/24 22:39
Physical Exam
-
Vital Signs:
Vital Signs
Temp Pulse Resp BP Pulse Ox
97.8 F 57 15 129/66 96
02/29/24 12:07 02/29/24 12:07 02/29/24 12:07 02/29/24 12:07 02/29/24 12:07
Cardiovascular:: Regular rate and rhythm
Respiratory:: Bilateral: Coarse
Lung Excursion:: Normal
Abdomen:: Nontender and Soft
Bowel Sounds:: Normal
Extremity Edema:: +3: Bilateral:
[2024-02-29] MEDS: CALCIUM GLUCONATE 290 MG IV (13:33)
--- NOTE | 2024-02-29 16:36 | CM ---
Spoke with pt in room.
Pts Calcium elevated.
He said Pat will drive [facility] [place] [facility]
IMM reviewed signed copy on chart.
Offered Vn he declined.
PLAN Home no needs
[2024-02-29] MEDS: ROCALTROL 0.75 MCG PO (20:14)
[2024-02-29] MEDS: CYMBALTA DELAYED RELEASE 30 MG PO (21:48)
[2024-02-29] MEDS: SOLU-MEDROL PF 20 MG IV (21:49)
[2024-03-01] MEDS: DILAUDID 0.5 MG IV ×5 (01:11→18:24)
[2024-03-01 03:30] VITALS: BP 173/93
[2024-03-01 06:00] VITALS: BMI 26.7
[2024-03-01 07:20] VITALS: BP 160/81
[2024-03-01] MEDS: NON-FORMULARY ITEM 12 MG PO (07:53)
[2024-03-01] MEDS: CELLCEPT 500 MG PO ×2 (07:54→20:40)
[2024-03-01] MEDS: SODIUM BICARBONATE 650 MG PO ×2 (07:54→20:39)
[2024-03-01] MEDS: OXYCONTIN (CONTROLLED RELEASE) 20 MG PO ×2 (07:55→20:40)
[2024-03-01] MEDS: ROXICODONE 10 MG PO ×2 (07:55→20:40)
[2024-03-01] MEDS: ROCALTROL 0.75 MCG PO ×2 (07:55→20:39)
[2024-03-01] MEDS: ANCEF 2.5 MG IV (08:38)
[2024-03-01] MEDS: COREG 6.25 MG PO ×2 (08:39→20:39)
[2024-03-01] MEDS: APRESOLINE 50 MG PO ×2 (08:39→17:00)
[2024-03-01] MEDS: DEMADEX 100 MG PO (08:39)
[2024-03-01] MEDS: KLONOPIN 0.5 MG PO ×2 (08:39→20:40)
[2024-03-01] MEDS: PHOSLO 1334 MG PO ×3 (08:39→17:00)
[2024-03-01] MEDS: OSCAL CAL 500 2000 MG PO ×2 (08:39→20:40)
[2024-03-01] MEDS: ACTIGALL 300 MG PO ×3 (08:40→21:44)
[2024-03-01] MEDS: MAGNESIUM OXIDE 500 MG PO ×2 (08:40→20:40)
[2024-03-01 09:17] LABS: ALT (SGPT) < 10 U/L (0-50); AST (SGOT) 35 U/L (17-59); Albumin 3.7 g/dl (3.5-5.0); Alkaline Phosphatase 858 U/L (38-126); Blood Urea Nitrogen 71 mg/dl (9-20); Calcium 6.7 mg/dl (8.4-10.2); Carbon Dioxide 24 mmol/L (22-30); Chloride 97 mmol/L (98-107); Estimated Creatinine Clearance 23 ml/min; Glucose 172 mg/dl (70-99); Magnesium 2.1 mg/dl (1.6-2.3); Potassium 5.1 mmol/L (3.5-5.1); Sodium 133 mmol/L (135-145); Total Bilirubin 0.7 mg/dl (0.2-1.3); Total Protein 6.1 g/dl (6.3-8.2); eGFR 17.93
--- NOTE | 2024-03-01 09:37 | W.PN.HOSP.TC ---
Today's Communication/Plan
-
dc planning
IV calcium,
Assessment / Plan
Assessment / Plan
Physical Exam
General: No Apparent Distress and Appears Chronically Ill
HEENT: Normocephalic, Moist mucous membranes and Atraumatic
Respiratory: Clear
Cardiac: S1/S2 and Regular Rhythm; No Murmur or Rub
GI: Soft, Non Tender, Non Distended and Normal Bowel Sounds; No Organomegaly
Rectal: No bleeding
Genito-urinary: No costovertebral tender; No Frederick
Musculoskeletal: No Clubbing, No Cyanosis, Edema, Left Lower Extremity (4+), Edema, Right Lower Extremity (3+) and Other (LUE AVF, no bruit/thrill)
Skin: Warm, Rash, edema in both leg. Left LE is tender
Neuro: Awake, Alert, Oriented, AO x 3, No Motor Deficits and Nonfocal/grossly intact
Psych: Calm
# Left ankle pain
Seems mildly swollen ( both ankles are swollen) but not red skin seen, limited movement. X ray showed arthritis ( reviewed by radiologist and Ortho doctor).
Given Steroid IV . Pt reports same pain. Patient has chronic pain with opioid dependency. He was noted to walk with no limitation, sleep well, he requests Dilaudid , was advised to avoid extra doses.
#LLE Cellulitis
- Leukopenia WBC 3.6K on admission. Afebrile, though noting immunocompromised history
- S/P Zosyn in ER. Changed to Ancef, dosed renally.
- Clinically not impressive for cellulitis. Pain is same and not improving. Pt feels it started after fistula surgery. Normal looking left foot, warm and good pulse
- He is requesting an additional pain medication.
- Blood culture is NGTD. Will stop IV Abx 03/01- today_ to finish 5 days for presumed cellulitis.
Seen by vascular doctor, pain is not ischemic, can follow in office for fistula treatment.
Hypocalcemia
c/w oral calcium and calcitriol
Given IV calcium , will give two doses today
Acute on chronic HFpEF, decompensated
No sob or chest pain
Echo 02/24 LVEF 60%, Mild TR, Mild AR,
- Trop <0.012, no chest pain. EKG no acute ischemic change.
- BNP 6940. No RR distress or oxygen requirements. Check CXR
- Off IV Lasix, started on Torsemide.
- Continue home BB
- Appreciate cardiology input.
VICKEY on CKD IV
- BUN/Cr 71/3.9. Baseline Cr 3.2-3.5.
- Unclear whether progression of known disease vs CHF contributing to cardiorenal etiology
- s/p IV Lasix.
- Trend I&O and wts
- c/w sodium bicarbonate
- Abdominal ultrasound: No obstructive uropathy or nephrolithiasis.
- Primary metal tile lather Dr Spears
- Appreciate nephrology help
Acute/Chronic Anemia of chronic disease
- Hgb around 8
- Suspect AOCD in setting of renal disease
- on iron/ferritin/tibc
- Consented and transfused 2u PRBC in ER
- Could be contributing to high output heart failure
Hyponatremia
Hypomagnesemia
replace with IV Mg.
# Essential HTN
- s/p IV diuresis. Home torsemide is resumed.
- Continue home BB, Hydralazine
TRAVIS Cirrhosis S/P liver transplant 2020
Elevated Alk Phos (chronic)
- Tacrolimus is resumed. Level is normal.
- Continue cellcept
- Continue home ursodiol
- Outpatient follow up with Dr. Muller
Anxiety/Depression - Continue home Klonopin. [place]PD[place].
Acute/ Chronic Pain - Continue home oxycodone and oxycontin regimen. Will add 0.5mg IV dilaudid for BTP given new LLE pain/cellulitis.
Diet: Pt refusing renal or sodium restricted diet. C/W . Regular diet with 1200cc fluid restriction
DVT: sq heparin, pt refuses it despite knowing the risks. will stop it.
Code Status: DNR/DNI, confirmed
Total time spent to see the patient, examine the patient on the floor, review data and lab results, discuss treatment plan with patient, nursing staff around 55 minutes.
Anticipated Discharge: Within 24 hours
Subjective/Interval History
-
Date of Service: March 01, 2024
Objective Data
-
Labs:
Laboratory Results
03/01/24
05:54
Sodium 133 L
Potassium 5.1
Chloride 97 L
Carbon Dioxide 24
BUN 71 H
Creatinine 3.7 H
Glucose 172 H
Calcium 6.7 L*
Total Bilirubin 0.7
AST 35
ALT < 10
Alkaline Phosphatase 858 H
Vital Signs:
Vital Signs
Temp Pulse Resp BP Pulse Ox
97.9 F 61 16 160/81 94
03/01/24 07:20 03/01/24 08:39 03/01/24 07:20 03/01/24 08:39 03/01/24 08:35
I&O
02/29/24 03/01/24 03/02/24
06:59 06:59 06:59
Intake Total 960 / 960 2160 / 2160
Output Total 800 / 800 400 / 400
Balance 160 / 160 1760 / 1760
[2024-03-01] MEDS: CALCIUM GLUCONATE 100 IV ×2 (10:06→20:41)
[2024-03-01 11:10] VITALS: BP 131/74
--- NOTE | 2024-03-01 11:29 | W.PN.NEPH.PH ---
Today's Communication / Plan
-
IV calcium
Assessment/Plan
-
Impression:
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 according to patient in 4s
Hypocalcemia
Edema
Proteinuria
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
Subdural hematoma January 2023 status post thuan hole
Hypertension, multidrug
Seizure disorder on oxcarbazepine
Hypothyroidism with normal TSH
Chronic back pain
Chronic opioid dependence
Anxiety/depression
Chronic heart failure, type unknown:torsemide 60mg BID
Inguinal herniorrhaphy
Former smoker
Daily marijuana
Plan:
increased calcitriol
continue calcium carbonate
IV calcium
follow BMP
follow Mg
no emergent HD needs
-
-
Date of Service: March 01, 2024
CC / HPI / ROS
-
Chief Complaint:
CKD V
History of Present Illness:
hypoMg, hypoCa
Cr stable at 3.7, likely patient's new baseline
stable urine output
Calcium better at 6.7 on active vitD/CaCO3
Hyponatremia stable 133
Review of Systems:
no CP/SOB
Labs
-
Labs:
WBC 3.3 10^3/uL (4.8-10.8) L 02/29/24 09:46
RBC 2.82 10^6/uL (4.70-6.10) L 02/29/24 09:46
Hgb 8.3 g/dL (13.0-18.0) L 02/29/24 09:46
Hct 24.8 % (39.0-52.0) L 02/29/24 09:46
Plt Count 133 10^3/uL (130-400) 02/29/24 09:46
Sodium 133 mmol/L (135-145) L 03/01/24 05:54
Potassium 5.1 mmol/L (3.5-5.1) 03/01/24 05:54
Chloride 97 mmol/L (98-107) L 03/01/24 05:54
Carbon Dioxide 24 mmol/L (22-30) 03/01/24 05:54
BUN 71 mg/dl (9-20) H 03/01/24 05:54
Creatinine 3.7 mg/dL (0.7-1.3) H 03/01/24 05:54
eGFR 17.93 03/01/24 05:54
Glucose 172 mg/dl (70-99) H 03/01/24 05:54
Calcium 6.7 mg/dl (8.4-10.2) L* 03/01/24 05:54
Bpr-G-Lgdavcuscux Pept 6940 pg/ml 02/24/24 22:04
Albumin 3.7 g/dl (3.5-5.0) 03/01/24 05:54
Physical Exam
-
Vital Signs:
Vital Signs
Temp Pulse Resp BP Pulse Ox
97.9 F 61 16 160/81 94
03/01/24 07:20 03/01/24 08:39 03/01/24 07:20 03/01/24 08:39 03/01/24 08:35
Cardiovascular:: Regular rate and rhythm
Respiratory:: Bilateral: Coarse
Lung Excursion:: Normal
Abdomen:: Nontender and Soft
Bowel Sounds:: Normal
Extremity Edema:: +2: Bilateral:
[2024-03-01] MEDS: CALCIUM GLUCONATE 280 MG IV (12:04)
[2024-03-01 15:15] VITALS: BP 122/65
[2024-03-01 20:38] VITALS: BP 146/78
[2024-03-01] MEDS: CYMBALTA DELAYED RELEASE 30 MG PO (21:44)
[2024-03-01] MEDS: SOLU-MEDROL PF 20 MG IV (21:44)
[2024-03-01 23:28] VITALS: BP 128/70
[2024-03-02] MEDS: APRESOLINE 50 MG PO ×2 (00:37→08:30)
[2024-03-02] MEDS: DILAUDID 0.5 MG IV ×3 (00:58→10:20)
[2024-03-02 06:00] VITALS: BMI 26.9
[2024-03-02 07:08] LABS: Blood Urea Nitrogen 73 mg/dl (9-20); Calcium 7.2 mg/dl (8.4-10.2); Carbon Dioxide 25 mmol/L (22-30); Chloride 98 mmol/L (98-107); Estimated Creatinine Clearance 25 ml/min; Glucose 169 mg/dl (70-99); Potassium 5.2 mmol/L (3.5-5.1); Sodium 132 mmol/L (135-145); eGFR 19.84
[2024-03-02 07:20] VITALS: BP 161/87
[2024-03-02] MEDS: KLONOPIN 0.5 MG PO (08:27)
[2024-03-02] MEDS: CELLCEPT 500 MG PO (08:27)
[2024-03-02] MEDS: SODIUM BICARBONATE 650 MG PO (08:27)
[2024-03-02] MEDS: ACTIGALL 300 MG PO (08:27)
[2024-03-02] MEDS: PHOSLO 1334 MG PO ×2 (08:27→12:03)
[2024-03-02] MEDS: OSCAL CAL 500 2000 MG PO (08:28)
[2024-03-02] MEDS: MAGNESIUM OXIDE 500 MG PO (08:28)
[2024-03-02] MEDS: NON-FORMULARY ITEM 12 MG PO (08:28)
[2024-03-02] MEDS: ROCALTROL 0.75 MCG PO (08:28)
[2024-03-02] MEDS: DEMADEX 100 MG PO (08:29)
[2024-03-02] MEDS: OXYCONTIN (CONTROLLED RELEASE) 20 MG PO (08:30)
[2024-03-02] MEDS: COREG 6.25 MG PO (08:30)
[2024-03-02] MEDS: ROXICODONE 10 MG PO (08:30)
[2024-03-02] MEDS: LOKELMA 10 GRAM PO (08:34)
--- NOTE | 2024-03-02 10:10 | W.PN.HOSP.TC ---
Today's Communication/Plan
-
dc
Pt had blood work order with his weigh boss, to f/w next week.
Assessment / Plan
Assessment / Plan
Physical Exam
General: No Apparent Distress and Appears Chronically Ill
HEENT: Normocephalic, Moist mucous membranes and Atraumatic
Respiratory: Clear
Cardiac: S1/S2 and Regular Rhythm; No Murmur or Rub
GI: Soft, Non Tender, Non Distended and Normal Bowel Sounds; No Organomegaly
Rectal: No bleeding
Genito-urinary: No costovertebral tender; No Frederick
Musculoskeletal: No Clubbing, No Cyanosis, Edema, Left Lower Extremity (4+), Edema, Right Lower Extremity (3+) and Other (LUE AVF, no bruit/thrill)
Skin: Warm, Rash, edema in both leg. Left LE is tender
Neuro: Awake, Alert, Oriented, AO x 3, No Motor Deficits and Nonfocal/grossly intact
Psych: Calm
# Left ankle pain
Seems mildly swollen ( both ankles are swollen) but not red skin seen, limited movement. X ray showed arthritis ( reviewed by radiologist and Ortho doctor).
Given Steroid IV but he seemed to no feel different. On exam: the swelling in both legs is less and no skin changes, no tenderness note din legs/ankles on exam. Patient has chronic pain with opioid dependency. He was noted to walk with no
limitation, slept well, he requests Dilaudid , was advised to avoid extra doses.
#LLE Cellulitis.
- Leukopenia WBC 3.6K on admission. Afebrile, though noting immunocompromised history
- S/P Zosyn in ER. Changed to Ancef, dosed renally.
- Clinically not impressive for cellulitis. Pain is same and did not improve with ABx, the swelling seemed less after diuretic therapy. Pt felt it started after fistula surgery and was concerned. Normal looking left foot, warm and good pulse. He
was evaluated by vascular, no intervention needed, no vascular insufficiency.
- He is requesting an additional pain medication.
- Blood culture is NGTD. Will stop IV Abx 03/01- today_ finished 5 days for presumed cellulitis.
Seen by vascular doctor, pain is not ischemic, can follow in office for fistula treatment.
#Hypocalcemia
c/w oral calcium and calcitriol
s/p IV calcium replacement therapy.
# Mild hyperkalemia
Given Lokelma.
Advised to take low K diet, blood work in 2 days.
Acute on chronic HFpEF, decompensated
No sob or chest pain
Echo 02/24 LVEF 60%, Mild TR, Mild AR,
- Trop <0.012, no chest pain. EKG no acute ischemic change.
- BNP 6940. No RR distress or oxygen requirements. Check CXR
- Off IV Lasix, started on Torsemide.
- Continue home BB
- Appreciate cardiology input.
VICKEY on CKD IV
- BUN/Cr 71/3.9. Baseline Cr 3.2-3.5.
- Unclear whether progression of known disease vs CHF contributing to cardiorenal etiology
- s/p IV Lasix.
- Stable weight
- c/w sodium bicarbonate
- Abdominal ultrasound: No obstructive uropathy or nephrolithiasis.
- Primary weigh boss Dr Spears . Pt has standing blood work order at [facility] and he will do it this week, he has an appointment with weigh boss next week.
- Appreciate nephrology help
Acute/Chronic Anemia of chronic disease
- Hgb around 8
- Suspect AOCD in setting of renal disease
- on iron
- Consented and transfused 2u PRBC in ER
- Could be contributing to high output heart failure
Hyponatremia
Hypomagnesemia
replace with IV Mg.
# Essential HTN
- s/p IV diuresis. Home torsemide is resumed.
- Continue home BB, Hydralazine
TRAVIS Cirrhosis S/P liver transplant 2020
Elevated Alk Phos (chronic)
- Tacrolimus is resumed. Level is normal.
- Continue cellcept
- Continue home ursodiol
- Outpatient follow up with Dr. Muller
Anxiety/Depression - Continue home Klonopin. [place]PD[place].
Acute/ Chronic Pain - Continue home oxycodone and oxycontin regimen. Will add 0.5mg IV dilaudid for BTP given new LLE pain/cellulitis.
Diet: Pt refusing renal or sodium restricted diet. C/W . Regular diet with 1200cc fluid restriction
DVT: sq heparin, pt refuses it despite knowing the risks. will stop it.
Code Status: DNR/DNI, confirmed
Total discharge time spent to see the patient, examine the patient on the floor, review data and lab results, discuss discharge plan with patient, , nursing staff around 67 minutes.
Anticipated Discharge: Today
Subjective/Interval History
-
Date of Service: March 02, 2024
Pain in leg is less
No chest pain
No sob
Objective Data
-
Labs:
Laboratory Results
03/02/24
06:05
Sodium 132 L
Potassium 5.2 H
Chloride 98
Carbon Dioxide 25
BUN 73 H
Creatinine 3.4 H
Glucose 169 H
Calcium 7.2 L
Vital Signs:
Vital Signs
Temp Pulse Resp BP Pulse Ox
97.5 F 57 16 161/87 96
03/02/24 07:20 03/02/24 08:29 03/02/24 07:20 03/02/24 08:29 03/02/24 08:40
I&O
03/01/24 03/02/24 03/03/24
06:59 06:59 06:59
Intake Total 2160 / 2160 240 / 240
Output Total 400 / 400 1999 / 1999
Balance 1760 / 1760 -1999 240 / 240
--- NOTE | 2024-03-02 10:33 | W.DCSUMMARY ---
Discharge Summary
Discharge Data
Date of Admission: 02/25/24
Date of Discharge: 03/02/24
-
Pending Results: No
Hospital Course
59 years old male presented to the hospital with bilateral lower extremity swelling but more on the left side with acute on chronic pain in the left lower extremity. Patient had history of liver transplant and maintained on mycophenolate and
tacrolimus, followed by Dr. Muller. Patient had history of chronic kidney disease stage V with baseline creatinine of 3.5 with a primary rv mechanic Dr. Spears. Creatinine was 3.9 on admission. Patient was diagnosed with acute kidney injury
on chronic kidney disease. Patient denied anorexia, metallic taste in mouth, asterixis, increased confusion or other signs of renal failure. He did not need emergent hemodialysis. He was evaluated by securities and real estate director. He appeared to be volume
overloaded. He was started on intravenous furosemide therapy. Patient was noted to have hypocalcemia. Patient received calcium replacement therapy including Calcitrol with titrating the dose of Calcitrol to 0.75 mcg twice a day. His calcium
improved to 7.2. He did not have clinical signs of hypocalcemia. He was monitored on telemetry. Patient received empiric intravenous antibiotic for possible cellulitis of left lower extremity to avoid further deterioration since patient was on
immunosuppressive therapy. Tacrolimus level came back normal. Patient continued to have pain in the left lower extremity. Mostly around the left ankle area. He had x-ray that was reviewed with orthopedic doctor on-call. He had significant
arthritis of the ankle joint but no fracture. He was also evaluated by vascular surgery with no evidence of vascular type of pain. Patient had recent placement of fistula in the left upper extremity by Dr Murphy that was occluded by ultrasound
with absence of bruit. Patient wanted to follow-up with Dr. Velez in the outpatient setting. Blood culture did not show any growth. Patient finished course of antibiotic in the hospital. He was given empiric steroid therapy for left ankle
arthritis with good improvement. Patient was able to ambulate without limitation. He did not have skin changes consistent with cellulitis. He did not have fever or leukocytosis. Patient requested pain medication, Dilaudid in addition to his
usual dose of oral oxycodone while in the hospital. Patient had history of chronic pain syndrome with opioid dependency with exacerbation. He received frequent blood work and electrolytes were monitored by nephrology doctor and treated
accordingly. Patient was placed back on torsemide therapy. Patient was scheduled to have blood work with a primary securities and real estate director and he had appointment within few days after discharge to follow in the outpatient setting. He remained
hemodynamically stable, able to tolerate diet, ambulated with no restrictions and was discharged in a stable condition. He declined home health services.
Discharge Plan
-
Patient Disposition: Home (Routine Discharge)
Discharge Diagnosis/Procedures: Acute kidney injury on chronic kidney disease V
Occluded left upper extremity AV fistula, follow with vascular surgery.
Hypocalcemia, securities and real estate director increased dose of Calcitriol.
Hyperkalemia, recheck blood work
Chronic pain with opioid dependency
Bilateral lower extremities edema
Proteinuria
Additional Diets: Continue renal diet, low potassium
Blood Work: BMP in 2 -3 days
Referrals:
Jelani Spears MD [Non-Admitting Privileges] - in one week
Juan Velez MD [Active] - 03/11/24 4:00 pm
Kody Arellano DO [Family Provider] -
Prescriptions:
New
calcitriol 0.25 mcg capsule
0.75 mcg PO BID Qty: 180 0RF
Continued
carvedilol 6.25 mg Tablet
6.25 mg PO Q12H
mycophenolate mofetil [CellCept] 500 mg Tablet
500 mg PO Q12H
calcium carbonate 500 mg calcium (1,250 mg) Tablet
2,000 mg PO BID
hydralazine 50 mg Tablet
50 mg PO Q8H
clonazepam [Klonopin] 0.5 mg Tablet
0.5 mg PO Q12H
Patient Comments:
09/05/2023, pt. filled this med. on 08/21/2023 for 60 tablets according to PDMP.
magnesium oxide 400 mg (241.3 mg magnesium) Tablet
400 mg PO BID
ursodiol 300 mg Capsule
300 mg PO TID
calcium acetate(phosphat bind) 667 mg Capsule
1,334 mg PO TID
duloxetine 30 mg Capsule,Delayed Release(Dr/Ec)
30 mg PO HS
oxycodone [OxyContin] 20 mg Tablet,Oral Only,Ext.Rel.12 Hr
20 mg PO BID
Patient Comments:
09/05/2023, pt. filled this med. on 08/22/2023 for 60 tablets according to PDMP.
Envarsus XR 4 mg Tablet Extended Release 24 Hr
12 mg PO DAILY
oxycodone 10 mg tablet
10 mg PO BID
Patient Comments:
09/05/2023, pt. filled this med. on 08/21/2023 for 60 tablets according to PDMP.
torsemide 100 mg Tablet
100 mg PO DAILY
Colace 100 mg
100 mg PO PRN PRN (Reason: constipation)
Miralax 17 g
17 g PO PRN PRN (Reason: constipation)
senna 8.6 mg
8.6 mg PO PRN PRN (Reason: constipation)
Rx Instructions:
take 2 tablets by mouth nightly
sodium bicarbonate 650 mg
650 mg PO BID
Discontinued
calcitriol 1.25 mcg
1.25 mcg PO DAILY
Discharge Orders:
Discharge Patient (As Directed); Ordered 03/02/24
Ordered By: Meg Mojica
Discharge Date and Time
Discharge Date/Time: 03/02/24 13:10
Print Language: BULGARIAN
--- NOTE | 2024-03-02 10:51 | CM ---
advertising sales manager reviewed patient's chart and patient has been cleared for discharge today, home no needs.
Plan; Home no needs.
--- NOTE | 2024-03-02 11:43 | W.PN.NEPH.PH ---
Today's Communication / Plan
-
dc
Assessment/Plan
-
Impression:
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 according to patient in 4s
Hypocalcemia
Edema
Proteinuria
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
Subdural hematoma January 2023 status post thuan hole
Hypertension, multidrug
Seizure disorder on oxcarbazepine
Hypothyroidism with normal TSH
Chronic back pain
Chronic opioid dependence
Anxiety/depression
Chronic heart failure, type unknown:torsemide 60mg BID
Inguinal herniorrhaphy
Former smoker
Daily marijuana
Plan:
increased calcitriol 0.75 BID
continue calcium carbonate BID
received lokelma today
follow BMP
no emergent HD needs
for d/c and OP neprho f/u
-
-
Date of Service: March 02, 2024
CC / HPI / ROS
-
Chief Complaint:
CKD V
History of Present Illness:
hypoMg, hypoCa
Cr stable at 3.4, likely patient's new baseline
stable urine output
Calcium better at 7.2 on active vitD/CaCO3
Hyponatremia stable 132
K up at 5.2
Review of Systems:
no CP/SOB
Labs
-
Labs:
WBC Cancelled 03/01/24 13:15
RBC Cancelled 03/01/24 13:15
Hgb Cancelled 03/01/24 13:15
Hct Cancelled 03/01/24 13:15
Plt Count Cancelled 03/01/24 13:15
Sodium 132 mmol/L (135-145) L 03/02/24 06:05
Potassium 5.2 mmol/L (3.5-5.1) H 03/02/24 06:05
Chloride 98 mmol/L (98-107) 03/02/24 06:05
Carbon Dioxide 25 mmol/L (22-30) 03/02/24 06:05
BUN 73 mg/dl (9-20) H 03/02/24 06:05
Creatinine 3.4 mg/dL (0.7-1.3) H 03/02/24 06:05
eGFR 19.84 03/02/24 06:05
Glucose 169 mg/dl (70-99) H 03/02/24 06:05
Calcium 7.2 mg/dl (8.4-10.2) L 03/02/24 06:05
Uaa-Q-Kyohwglccsb Pept 6940 pg/ml 02/24/24 22:04
Albumin 3.7 g/dl (3.5-5.0) 03/01/24 05:54
Physical Exam
-
Vital Signs:
Vital Signs
Temp Pulse Resp BP Pulse Ox
97.5 F 57 16 161/87 96
03/02/24 07:20 03/02/24 08:29 03/02/24 07:20 03/02/24 08:29 03/02/24 08:40
Cardiovascular:: Regular rate and rhythm
Respiratory:: Bilateral: Coarse
Lung Excursion:: Normal
Abdomen:: Nontender and Soft
Bowel Sounds:: Normal
Extremity Edema:: +2: Bilateral:
[2024-03-02 12:49] VITALS: BP 153/83
== END 2024-03-02 13:10 | disposition home or self-care (01) | DRG 682 ==
LOC: 4 EAST ACU 02:36
PROVIDERS: Clinical Nurse Specialist Family Health; Nurse Practitioner; ADMITTING PHYSICIAN Internal Medicine; ATTENDING PHYSICIAN Internal Medicine; EMERGENCY PHYSICIAN Emergency Medicine; FAMILY PHYSICIAN Internal Medicine; OTHER PHYSICIAN Internal Medicine Cardiovascular Disease; OTHER PHYSICIAN Student in an Organized Health Care Education/Training Program
PROC: 30233N1 Transfusion of Nonautologous Red Blood Cells into Peripheral Vein, Percutaneous Approach (ICD-10-PCS; 2024-02-25)
DX: N17.8 Other acute kidney failure (principal); I50.33 Acute on chronic diastolic (congestive) heart failure; I13.2 Hypertensive heart and chronic kidney disease with heart failure and with stage 5 chronic kidney disease, or end stage renal disease; L03.116 Cellulitis of left lower limb; Z94.4 Liver transplant status; K76.6 Portal hypertension; F11.20 Opioid dependence, uncomplicated; D84.821 Immunodeficiency due to drugs; T82.868A Thrombosis due to vascular prosthetic devices, implants and grafts, initial encounter; E87.1 Hypo-osmolality and hyponatremia; Z66 Do not resuscitate; N25.81 Secondary hyperparathyroidism of renal origin; N18.5 Chronic kidney disease, stage 5; E83.51 Hypocalcemia; D63.1 Anemia in chronic kidney disease; G89.4 Chronic pain syndrome; M54.50 Low back pain, unspecified; K59.00 Constipation, unspecified; F41.9 Anxiety disorder, unspecified; F32.A Depression, unspecified; T45.1X5A Adverse effect of antineoplastic and immunosuppressive drugs, initial encounter; E83.42 Hypomagnesemia; G40.909 Epilepsy, unspecified, not intractable, without status epilepticus; E03.9 Hypothyroidism, unspecified; E87.5 Hyperkalemia; F12.90 Cannabis use, unspecified, uncomplicated; M19.072 Primary osteoarthritis, left ankle and foot; Z86.79 Personal history of other diseases of the circulatory system; Z88.5 Allergy status to narcotic agent; Z87.891 Personal history of nicotine dependence; Z79.621 Long term (current) use of calcineurin inhibitor; Z79.624 Long term (current) use of inhibitors of nucleotide synthesis; Y83.2 Surgical operation with anastomosis, bypass or graft as the cause of abnormal reaction of the patient, or of later complication, without mention of misadventure at the time of the procedure
CPT/HCPCS: 36430; 71046; 73600; 76700; 80048; 80053; 80197; 82330; 82550; 82728; 83540; 83550; 83735; 83880; 84484; 85025; 85027; 86850; 86900; 86901; 86920; 93005; 93306; 93922; 93925; 93971; 93990; 96365; 96375; 97116; 97162; 97166; 99285; P9058

== ENCOUNTER 2024-06-11 20:49 | Emergency (ER) | payer MEDICARE, OTHER, SELFPAY ==
[2024-06-11 20:57] VITALS: BP 162/91
[2024-06-11] MEDS: NORCO 5/325 1 TABLET PO (22:41)
[2024-06-11 23:14] VITALS: BP 156/68
--- NOTE | 2024-06-11 23:22 | ED.MUSCINJ ---
HPI-Injury
General
Chief Complaint: Musculo-Skeletal Complaint
Source: patient
Exam Limitations: none
Time Seen by Provider: 06/11/24 22:04
Nursing documentation reviewed up to this point in time: agreed with
History of Present Illness-Injury
Is this injury a work related problem?: No
Is pt an associate of [facility]/[place]?: No
Initial Injury comments:
Patient to ED with complaint of pain and swelling to left knee. No history of trauma. No prior history of same. Brought to ED by spouse for eval.
Past History
Past History
ED Past Medical History: CHF, HTN, Psychiatric (Anxiety), Other (TRAVIS cirrhosis, hepatic encephalopathy, portal hypertension, ascites, esophageal varices status post banding, chronic right-sided abdominal pain on pain management, portal vein
thrombosis, nonocclusive SMV thrombus,) and Other (Chronic abd pain, Chronic renal failure, Anemia)
ED Past Surgical History: Appendectomy, Orthopedic (Right leg surgery, Right shoulder surgery, Right hand surgery, ) and Other (Hernia repair X 3, Liver Transplant, Subdural hematoma with surgery, Left arm fistula, )
Social History
Tobacco: Former smoker
Alcohol: Former
Drug: None and Marijuana
Personal:
Living: with family
Employment: Not employed
Family History
Family History: Other
Review of Systems
Review of Systems
Allergies reviewed?: Yes
All Other Systems: ROS reviewed and negative except as documented in HPI and ROS
Constitutional: Reports no symptoms
Musculoskeletal: Reports joint pain (pain/effusion left knee)
Skin: Reports no symptoms
Neurological: Reports no symptoms
Psychiatric: Reports no symptoms
Musculoskeletal Injury Exam
Musculoskeletal Injury Exam
Left Knee:
Pain with Movement?: Moderate
Tender to palpation?: Moderate
Soft tissue swelling?: Moderate
External deformity and angulation?: None
Joint effusion?: Moderate
Contusion?: None
Hematoma-local bleeding into tissue?: None
Crepitus with movement?: No
Joint instability?: No
Malalignment/deformity?: No
Range of motion: Limited
Distal skin color and temperature: normal-warm & good color
Capillary Refill: normal
Normal distal neurovascular exam?: Yes
Peripheral Pulses: posterior tibial (left): 3+ and dorsalis pedis (left): 3+
Phy Exam
General Physical Exam
General Presentation: well appearing and no apparent distress
General age: appears stated age
General Skin: warm and dry
General Habitus: normal
General Mental: alert
Musculoskeletal Exam
Musculoskeletal Exam: neuro vasc intact
Skin Exam
Skin Exam: normal color, warm/dry and no rash
Psychiatric Exam
Psychiatric Exam: normal mood/affect
Injury Course
Orders/Labs/Results
Orders:
Orders
06/11/24 20:59
Knee, Left 4 or More Views [CR Knee - Left 4 Or More View*] Urgent
Comment:
Reason For Exam: pain, swelling
06/11/24 22:24
Hydrocodone 5/APAP 325 [Suffern 5/325] 1 tablet PO NOW STA
06/11/24 22:40
Body Fluid Crystals Urgent
What is the Body Fluid: knee
Date Specimen was Collected: 06/11/24
Time Specimen was Collected: 22:26
Fluid Culture with Gram Stain Urgent
HUDSON Source: Joint Fluid
Specimen Description:
Date Specimen was Collected: 06/11/24
Time Specimen was Collected: 22:26
06/11/24 23:07
Lidocaine/Epinephrine/Tetracai [Let Topical Anesthetic Gel] 3 ml .ROUTE .[facility]
Procedures
Incision/Drainage/Joint Aspiration
Left Knee:
Anethesia: 1% Lidocaine with Epi
Preparation: cleaned with Betadine
Type of procedure: aspiration
How much fluid was obtained?: number in mls (80mls)
Fluid description: bloody
Treatment: left open for drainage
*Radiology
Radiology exam reviewed: radiology read reviewed
*Pulse Oximetry
Patient hypoxic: no
*Critical Care Note
Total Time (30-74mins, 75-104mins- exclusive of procedures): Not Applicable
ED Attending Note
-
Portions of this chart may have been created with voice recognition software.� Occasional wrong word or��sound alike� substitutions may have occurred due to the inherent limitations of voice recognition software.
Discharge Plan
Departure
Patient Disposition: Home (Routine Discharge)
Date of Disposition: 06/11/24
Time of Disposition: 22:24
Patient with high blood pressure during this ER visit?: No
Condition: Good
Covid-19: Not Applicable
Discharge Problem:
Effusion of knee
Instructions: Knee Immobilizer (DC), Swollen Joints (DC), Using Cold for Pain, RICE Therapy
Prescriptions:
New
hydrocodone-acetaminophen 5-325 mg tablet
1 tab PO Q4H PRN (Reason: Pain) Qty: 14 0RF
No Action
carvedilol 6.25 mg Tablet
6.25 mg PO Q12H
mycophenolate mofetil [CellCept] 500 mg Tablet
500 mg PO Q12H
calcium carbonate 500 mg calcium (1,250 mg) Tablet
2,000 mg PO BID
hydralazine 50 mg Tablet
50 mg PO Q8H
clonazepam [Klonopin] 0.5 mg Tablet
0.5 mg PO Q12H
Patient Comments:
09/05/2023, pt. filled this med. on 08/21/2023 for 60 tablets according to PDMP.
magnesium oxide 400 mg (241.3 mg magnesium) Tablet
400 mg PO BID
ursodiol 300 mg Capsule
300 mg PO TID
calcium acetate(phosphat bind) 667 mg Capsule
1,334 mg PO TID
duloxetine 30 mg Capsule,Delayed Release(Dr/Ec)
30 mg PO HS
oxycodone [OxyContin] 20 mg Tablet,Oral Only,Ext.Rel.12 Hr
20 mg PO BID
Patient Comments:
09/05/2023, pt. filled this med. on 08/22/2023 for 60 tablets according to PDMP.
Envarsus XR 4 mg Tablet Extended Release 24 Hr
12 mg PO DAILY
oxycodone 10 mg tablet
10 mg PO BID
Patient Comments:
09/05/2023, pt. filled this med. on 08/21/2023 for 60 tablets according to PDMP.
torsemide 100 mg Tablet
100 mg PO DAILY
Colace 100 mg
100 mg PO PRN PRN (Reason: constipation)
Miralax 17 g
17 g PO PRN PRN (Reason: constipation)
senna 8.6 mg
8.6 mg PO PRN PRN (Reason: constipation)
Rx Instructions:
take 2 tablets by mouth nightly
sodium bicarbonate 650 mg
650 mg PO BID
calcitriol 0.25 mcg capsule
0.75 mcg PO BID Qty: 180 0RF
Referrals:
Lorne Maldonado MD [Active] - Call in 1-3 days for appt
Kody Arellano DO [Family Provider] -
Interventions
Interventions:
*Risk Screen - Suicide Last Done: 06/11/24 23:11
*General Assessment Last Done: 06/11/24 23:11
*Neglect/Abuse Screening Last Done: 06/11/24 23:11
*Nursing Disposition Last Done: 06/11/24 23:14
ED-Musculoskeletal Assessment Last Done: 06/11/24 23:11
Discharge Date and Time
Discharge Date/Time: 06/11/24 23:15
Print Language: GAMBIAN
== END 2024-06-11 23:15 | disposition home or self-care (01) ==
LOC: EMR 20:49
PROVIDERS: Nurse Practitioner; EMERGENCY PHYSICIAN Emergency Medicine; FAMILY PHYSICIAN Internal Medicine
DX: M25.462 Effusion, left knee (principal); I13.0 Hypertensive heart and chronic kidney disease with heart failure and stage 1 through stage 4 chronic kidney disease, or unspecified chronic kidney disease; N18.9 Chronic kidney disease, unspecified; I50.9 Heart failure, unspecified; Z87.891 Personal history of nicotine dependence; Z94.4 Liver transplant status
CPT/HCPCS: 20610; 99284; 73564; 87015; 87070; 87205; 89060

== ENCOUNTER 2024-08-13 20:07 | Inpatient (IN) | payer MEDICARE, OTHER, SELFPAY ==
[2024-08-13 15:56] VITALS: BP 129/74
[2024-08-13 16:56] LABS: % Basophils 0.4 % (0-2); % Eosinophils 7.5 % (0-6); % Immature Granulocytes 0.4 % (0-0.5); % Lymphocytes 3.6 % (20.5-51.1); % Monocytes 13.2 % (1.7-9.3); % Neutrophils 74.9 % (42.2-75.2); Absolute Eosinophils 0.4 10^3/uL (0-0.7); Absolute Lymphocytes 0.2 10^3/uL (1.2-3.4); Absolute Monocytes 0.7 10^3/uL (0.1-0.6); Absolute Neutrophils 3.9 10^3/uL (1.4-6.5); Hematocrit 23.2 % (39.0-52.0); Hemoglobin 7.7 g/dL (13.0-18.0); Mean Corp Hgb Conc. 33.2 g/dL (33.0-37.0); Mean Corpuscular Hgb 29.3 pg (27.0-31.0); Mean Corpuscular Volume 88.2 fL (80.0-94.0); Mean Platelet Volume 10.8 fL (7.4-10.4); Nucleated Red Blood Cells % 0 % (-); Platelet Count 155 10^3/uL (130-400); Red Blood Cell Count 2.63 10^6/uL (4.70-6.10); Red Cell Dist. Width 13.5 % (11.5-14.5); White Blood Cell Count 5.2 10^3/uL (4.8-10.8)
[2024-08-13 17:28] LABS: ALT (SGPT) 23 U/L (0-50); AST (SGOT) 39 U/L (17-59); Alkaline Phosphatase 440 U/L (38-126); Blood Urea Nitrogen 75 mg/dl (9-20); Calcium 4.9 mg/dl (8.4-10.2); Carbon Dioxide 24 mmol/L (22-30); Chloride 91 mmol/L (98-107); Glucose 217 mg/dl (70-99); Potassium 4.3 mmol/L (3.5-5.1); Sodium 132 mmol/L (135-145); Total Bilirubin 0.5 mg/dl (0.2-1.3); Total Protein 6.5 g/dl (6.3-8.2); eGFR 11.92
--- NOTE | 2024-08-13 18:21 | ED.GENMED ---
History of Present Illness
General
Chief Complaint: Abnormal Lab Value
Source: patient
Exam Limitations: none
Time Seen by Provider: 08/13/24 18:20
Nursing documentation reviewed up to this point in time: agreed with
History of Present Illness
History of Present Illness:
Patient is a 59-year-old male who presents to the ER for evaluation of low potassium. Patient has a history of CHF hypertension cirrhosis of the liver/status post liver transplant hypocalcemia in the past.
He is followed by DR Petty at [facility](nephrology he has not started dialysis yet but is end-stage renal disease.) In addition patient does have chronic pain and is on OxyContin and oxycodone, pain is in his back.
He does c/o of muscle pain and a lot of hand /joint pain spasms). Patient was called by his nephrology stating his calcium was low and he needs to go to the ER.
Patient denies any fever chills chest pain shortness breath.
Past History
Past History
ED Past Medical History: CHF, HTN, Psychiatric (Anxiety), Other (TRAVIS cirrhosis, hepatic encephalopathy, portal hypertension, ascites, esophageal varices status post banding, chronic right-sided abdominal pain on pain management, portal vein
thrombosis, nonocclusive SMV thrombus,) and Other (Chronic abd pain, Chronic renal failure, Anemia)
ED Past Surgical History: Appendectomy, Orthopedic (Right leg surgery, Right shoulder surgery, Right hand surgery, ) and Other (Hernia repair X 3, Liver Transplant, Subdural hematoma with surgery, Left arm fistula, )
Social History
Tobacco: Former smoker
Alcohol: Former
Drug: None and Marijuana
Personal:
Living: with family
Employment: Not employed
Family History
Family History: Other
Review of Systems
Review of Systems
Allergies reviewed?: Yes
All Other Systems: ROS reviewed and negative except as documented in HPI and ROS
Constitutional: Reports no symptoms; Denies fever
EENT: Reports no symptoms
Respiratory: Reports no symptoms
ABD/GI: Reports no symptoms
: Reports no symptoms
Musculoskeletal: Reports other (muscle pain hand cramps )
Skin: Reports no symptoms
Neurological: Reports no symptoms
Psychiatric: Reports no symptoms
Phy Exam
General Physical Exam
General Presentation: no apparent distress
General age: appears stated age
General Skin: warm and dry
General Habitus: normal
General Mental: alert
General Hydration: appears well hydrated
Cardiovascular Exam
Cardiovascular Exam: regular rate/rhythm, no murmur and normal peripheral pulses
Pulmonary Exam
Pulmonary Exam: lungs clear and no respiratory distress
Gastrointestinal Exam
Gastrointestinal Exam: non tender and soft
Neurological Exam
Neurological Exam: alert and oriented x3
Musculoskeletal Exam
Musculoskeletal Exam: full ROM
Skin Exam
Skin Exam: normal color and warm/dry
Psychiatric Exam
Psychiatric Exam: normal mood/affect
Course
Orders/Labs/Results
Orders:
Orders
08/13/24 Dinner
Potassium, 2 Gram
At Your Request: Full Participation
08/13/24 15:59
ECG [Electrocardiogram (*1)] Urgent
Reason for Study: Other
Other Reason for Exam: low calcium level
EKG- Treatment ONCE
08/13/24 16:12
CMP [Comprehensive Metabolic Panel] Urgent
Complete Blood Count/With Diff Urgent
Magnesium Urgent
Comment: ADDON
08/13/24 18:43
Calcium Gluconate 1 gram/100mL [Calcium Gluconate] 1 gram in 100 ml IV ONCE
08/13/24 18:50
HYDROmorphone [Dilaudid] 1 mg IV NOW STA
08/13/24 18:57
Add On- LAB Stat
Tests Added?: magnesium level
08/13/24 19:07
Admit/Transfer Patient As Directed
Co-Sign Provider:
Level of Care: Inpatient admission
Assign to:: Telemetry
Physician / Group: hospitalist
Diagnosis: symptomatic hypocalcemia
Reason for Telemetry: Other
Other Reason for Telemetry: hypocalcemia with prolongation of Qt
Date to Stop Telemetry: 08/15/24
Time to Stop Telemetry: 11:00
Reason for Hospitalization: symptomatic hypocalcemia
Expected length of stay greater than two midnights?: Yes
ELOS- Estimated Length of Stay in days: 2
I certify the patient meets the requirements for IP care: Yes
08/13/24 19:20
PRN Pain Medication Management As Directed
May give lesser potent ordered pain med per pt: Yes
preference::
Protocol:: Medication orders for pain may be administered in a
manner that supports deferring to patient preference
when the pt is:
- Requesting an ordered lesser potent pain medication.
Least to most potent pain medications are defined
as: acetaminophen < NSAID < tramadol < opioids
(morphine, oxycodone, hydromorphone).
- Requesting a lesser dose of the same medication IF
ORDERED.
- Requesting a less intrusive route of administration
if both routes are prescribed by the provider (PO <
IV).
08/13/24 19:24
Code Status As Directed
Resuscitation Status: Do not resuscitate
Reached after discussion with pt or family/Healthcare POA: Yes
DNR Bracelet Application ONCE
08/13/24 20:42
Acetaminophen [Tylenol] 650 mg PO Q4HPRN PRN
Bisacodyl [Dulcolax] 10 mg RECTAL [id number] PRN
Calcitriol [Rocaltrol] 0.75 mcg PO BID
Carvedilol [Coreg] 6.25 mg PO Q12
Clonazepam [Klonopin] 0.5 mg PO Q12
Docusate W/Senna [Senokot-S] 1 tablet PO BIDPRN PRN
HYDROmorphone [Dilaudid] 0.5 mg IV Q4HPRN PRN
Ondansetron Injectable [Zofran] 4 mg IV Q6HPRN PRN
Oxycodone [Roxicodone] 10 mg PO BID
Polyethylene Glycol Powder [Miralax] 17 grams PO DAILYPRN PRN
08/13/24 20:42
Activity As Directed
Activity Level: With Assistance
Vital Signs As Directed
Frequency: Per unit guidelines
DX Deep Vein Thrombosis Video Routine
08/13/24 21:00
Mycophenolate Mofetil 500 mg PO Q12
Oxycodone Controlled Release [Oxycontin (Controlled Release)] 20 mg PO BID
08/13/24 21:40
Calcium Routine
PTH [Intact PTH Includes Calcium] Urgent
Phos [Phosphorus] Routine
08/14/24 00:00
Heparin 5,000 units SC Q8
08/14/24 00:39
Basic Metabolic Panel Routine
08/14/24 06:00
Complete Blood Count/No Diff IN AM
Magnesium IN AM
08/14/24 08:00
Calcium Acetate [Phoslo] 1,334 mg PO MEALS
Calcium Carbonate [Oscal Rayray 500] 1,000 mg PO DAILY
Magnesium l-Lactate [Mag-Tab Sr] 84 mg PO DAILY
Ursodiol [Actigall] 300 mg PO TID @ 0800,1200,1700
tacrolimus [Envarsus XR] 12 mg PO DAILY
08/15/24 11:00
DC Protocol for Telemetry ONCE
Abnormal Lab Results
08/13/24
16:12
RBC 2.63 L 10^6/uL
(4.70-6.10)
Hgb 7.7 L g/dL
(13.0-18.0)
Hct 23.2 L %
(39.0-52.0)
MPV 10.8 H fL
(7.4-10.4)
Absolute Lymphs (auto) 0.2 L 10^3/uL
(1.2-3.4)
Absolute Monos (auto) 0.7 H 10^3/uL
(0.1-0.6)
Lymphocytes % 3.6 L %
(20.5-51.1)
Monocytes % 13.2 H %
(1.7-9.3)
Eosinophils % 7.5 H %
(0-6)
Sodium 132 L mmol/L
(135-145)
Chloride 91 L mmol/L
(98-107)
BUN 75 H mg/dl
(9-20)
Creatinine 5.2 H* mg/dL
(0.7-1.3)
Glucose 217 H mg/dl
(70-99)
Calcium 4.9 L* mg/dl
(8.4-10.2)
Magnesium 1.5 L mg/dl
(1.6-2.3)
Alkaline Phosphatase 440 H U/L
(38-126)
08/13/24 16:12
08/13/24 16:12
Vital Signs
Initial and Last Documented VS:
Initial Vital Signs
Temp Pulse Resp BP Pulse Ox
98.1 F 67 20 129/74 96
08/13/24 15:56 08/13/24 15:56 08/13/24 15:56 08/13/24 15:56 08/13/24 15:56
Last Documented Vital Signs
Temp Pulse Resp BP Pulse Ox
98.1 F 78 15 141/84 95
08/13/24 15:56 08/14/24 00:00 08/13/24 23:00 08/14/24 00:00 08/14/24 00:00
Insole Toe Snipping Machine Operator consulted with Physician
Insole Toe Snipping Machine Operator consulted with physician?: Yes
Name of Physician Consulted: Dr Myers
MDM/Problems Addressed
Differential Diagnosis Includes:
Not limited to renal failure, electrolyte abnormality
MDM/Problems Addressed:
Patient is a 59-year-old male with past medical history of CHF liver failure with transplant end-stage renal disease presents to the ER sent by his rn new graduate for low calcium. Patient does complain of muscle aches and hand cramps. Patient's
calcium found to be low at 4.9 with normal potassium; creatinine is 5.2 which is increased from previous and BUN is also 75 which has been persistently elevated in the 70s.
Patient denies any chest pain shortness of breath .EKG does show QTc prolongation. Patient does have history of anemia and his hemoglobin is again low at 7.7 denies any black or dark stools. Case discussed with ED physician IV calcium gluconate
was ordered Case discussed with rn new graduate patient will require admission to the hospital for further monitoring calcium supplementation and recheck. Case discussed admitting hospitalist
*Pulse Oximetry
Patient hypoxic: no
*Critical Care Note
Total Time (30-74mins, 75-104mins- exclusive of procedures): Not Applicable
ED Attending Note
-
Portions of this chart may have been created with voice recognition software.� Occasional wrong word or��sound alike� substitutions may have occurred due to the inherent limitations of voice recognition software.
Discharge Plan
Departure
Patient Disposition: Admit
Date of Disposition: 08/13/24
Time of Disposition: 18:44
Admit to: Telemetry
Admit to doctor: hospitalist
Presentation/result/management discussed w/ accepting MD/DO: Hospitalist
Patient with high blood pressure during this ER visit?: No
Condition: Fair
Covid-19: Not Applicable
Discharge Problem:
Acute on chronic kidney failure, hypocalcemia, Anemia
Interventions
Interventions:
*Risk Screen - Suicide Last Done: 08/13/24 20:43
*General Assessment Last Done: 08/13/24 15:56
*Neglect/Abuse Screening Last Done: 08/13/24 20:43
ED- Fall Risk Assessment Last Done: 08/13/24 20:09
--- NOTE | 2024-08-13 19:07 | HPS.HSE ---
Family Physician
-
Family Physician: Kody Arellano
Chief Complaint
-
Cramps
History of Present Illness
This is a 59-year-old male with past medical history significant for end-stage liver disease status post liver transplantation, renal failure pending hemodialysis who is currently CKD stage V, congestive heart failure, history of varices status post
banding, recurrent episode of hypocalcemia who presents to the emergency department with cramping in his upper and lower extremities over the last 3 weeks.
Presented to the emergency department to be evaluated for hypokalemia and was found to be hypocalcemic to 4.9.
He was afebrile, blood pressure was normal at 130/70 with a pulse of 67 satting 96% on room air. ECG shows a normal sinus rhythm at a rate of 61 with a QTc of 525. CBC was relatively stable with a hemoglobin of 7.7 and a normal platelet count.
His potassium was 4.3, sodium 132, bicarb 24, BUN and creatinine that is increased to 75 and 5.2 respectively. Calcium is 4.9 with albumin of 4.0.
Medical History
Past Medical History
Past Medical History: Reports CHF, HTN and Renal Failure (Not currently on dialysis, status post left upper extremity AV fistula that did not mature)
Additional Past Medical History:
End-stage liver disease status post transplantation
History of esophageal varices status post banding
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
Past Surgical History: Reports Appendectomy, Orthopedic and Other (Liver transplantation)
Social History
Tobacco: Former Smoker
Alcohol: Former
Drug: Marijuana
Personal:
Living: With Family
Employment: Not Employed
Family History
Family History: Not pertinent
Allergies / Home Medications
Allergies reflects when Allergies were last updated in [employer].
Home Medications with original date entered in [employer]
Allergy/Medication List:
Allergies
Allergy/AdvReac Type Severity Reaction Status Date / Time
Fish Containing Products Allergy 'I get Verified 08/13/24 15:56
high'
morphine Allergy Itching Verified 08/13/24 15:56
rabeprazole [From Aciphex] Allergy Rash Verified 08/13/24 15:56
shellfish derived Allergy 'I get Verified 08/13/24 15:56
high'
tizanidine Allergy Unknown Verified 08/13/24 15:56
Home Medications
calcium carbonate 1,000 mg PO DAILY Supplement 03/07/23
carvedilol 6.25 mg tablet 6.25 mg PO Q12H Blood Pressure 03/07/23
clonazepam 0.5 mg tablet (Klonopin) 0.5 mg PO Q12H Mental Health/Anxiety 03/07/23
mycophenolate mofetil 500 mg tablet (CellCept) 500 mg PO Q12H ANTI-REJECTION 03/07/23
magnesium oxide 400 mg (241.3 mg magnesium) tablet 400 mg PO DAILY Electrolyte Repletion 09/05/23
oxycodone 10 mg tablet 10 mg PO BID 09/05/23
oxycodone 20 mg tablet,crush resistant,extended release 12 hr (OxyContin) 20 mg PO BID Pain 09/05/23
tacrolimus 4 mg tablet,extended release 24 hr (Envarsus XR) 12 mg PO DAILY ANTI-REJECTION 09/05/23
ursodiol 300 mg capsule 300 mg PO TID GALLSTONE PREVENTION 09/05/23
torsemide 100 mg tablet 100 mg PO DAILY 02/25/24
calcitriol 0.25 mcg capsule 0.75 mcg (3 x 0.25 mcg) PO BID #180 caps 03/02/24
Review of Systems
-
Constitutional: Reports No Symptoms
EENT: Reports No Symptoms
Respiratory: Reports No Symptoms
Cardiac: Reports No Symptoms
Abdomen/GI: Reports No Symptoms
: Reports No Symptoms
Musculoskeletal: Reports Other (muscle cramps)
Skin: Reports No Symptoms
Neurological: Reports No Symptoms
Endocrine: Reports No Symptoms
Hematologic/Lymphatic: Reports No Symptoms
Psych: Reports No Symptoms
Physical Exam
Vital Signs
Vital Signs
Temp Pulse Resp BP Pulse Ox
98.1 F 67 20 129/74 96
08/13/24 15:56 08/13/24 15:56 08/13/24 15:56 08/13/24 15:56 08/13/24 15:56
Physical Exam
General: Well Developed, Well Nourished and Conversant
HEENT: NormoCephalic, Anicteric, Moist mucous membranes and Atraumatic
Respiratory: Clear
Cardiac: S1/S2 and Regular Rhythm
Breast: Deferred by me
GI: Soft, Non Tender and Normal Bowel Sounds
Rectal: Deferred by Provider
Genito-urinary: Clear Urine
Musculoskeletal: No Clubbing, No Cyanosis and No Edema
Skin: Warm
Neuro: AO x 3, Cranial Nerves Intact and Other (no tetany on exam)
Hematologic/Lymphatic: No Lymphadenopathy
Psych: Calm
Laboratory Results
-
08/13/24 16:12
08/13/24 16:12
Laboratory Results
Total Bilirubin 0.5 mg/dl (0.2-1.3) 08/13/24 16:12
AST 39 U/L (17-59) 08/13/24 16:12
ALT 23 U/L (0-50) 08/13/24 16:12
Alkaline Phosphatase 440 U/L (38-126) H 08/13/24 16:12
Data Reviewed
-
Medical Tests (Nuc Med, Echo, EKG etc): Image Personally Visualized and interpreted
Lab Data: Labs Reviewed by me
Old Records: Reviewed
Impression/Plan
-
IMPRESSION:
59 y.o male with renal failure pending hemodialysis with plans for probably permcath placement soon, non-oliguric, s/p Liver transplant on Tacrolimus/Cellcept here with recurrent symptomtic hypocalcemia. Reports compliance with calcitriol and oral
calcium supplementation. QTc prolonged, no tetany but muscle cramps on exam.
PLAN:
1. Hypocalcemia - Symptomatic with Calcium of 4.9
- admit to telemetry
- goal to increase calcium to lower limit of normal ~ 7
- IV calcium gluconate bolus and repeat calcium in 4 hours
- pth pending, checking phos and mag
- continue calcitriol 0.75mcg bid
- continue oral calcium carbonate 1g bid for now
- checking mag and correcting hypomag
2. Renal failure - Progressive, Non-oliguric. Normal bicarb and K. No volume overload. No acute indications for [employer].
- avoid nephrotoxins
- renal dose medications for now
- nephrology consult for possible initiation of HD
- hold torsemide 100mg for now
3. Liver Tx
- check tac level
- continue cellcept 500 q 12
- pt own tac Envarsus 12mg daily
- check level in am
4. Anemia - progressive, likely from renal failure
- no indication for transfusion
- type and screen
-
DVT PPX - heparin sq
Code status - full code
[2024-08-13] MEDS: DILAUDID 1 MG IV (19:24)
[2024-08-13] MEDS: CALCIUM GLUCONATE 100 IV (19:24)
--- NOTE | 2024-08-13 19:38 | PHANOTE ---
med rec angelique(08/13/24)- Patient should be on calcitriol, but spouse states they ran out more than a week ago and is unsure of what the dosage was.
[2024-08-13 19:40] LABS: Magnesium 1.5 mg/dl (1.6-2.3)
[2024-08-13 20:50] VITALS: BP 137/68
[2024-08-13 21:00] VITALS: BP 134/68
[2024-08-13] MEDS: KLONOPIN 0.5 MG PO (21:32)
[2024-08-13] MEDS: ROCALTROL 0.75 MCG PO (21:32)
[2024-08-13] MEDS: COREG 6.25 MG PO (21:33)
[2024-08-13] MEDS: CELLCEPT 500 MG PO (21:33)
[2024-08-13] MEDS: OXYCONTIN (CONTROLLED RELEASE) 20 MG PO (21:33)
[2024-08-13 22:00] VITALS: BP 131/63
[2024-08-13 22:03] LABS: Calcium 4.9 mg/dl (8.4-10.2); Phosphorus 8.3 mg/dl (2.5-4.5)
[2024-08-13 22:04] LABS: Calcium 5.1 mg/dl (8.4-10.2)
[2024-08-13 22:06] VITALS: BMI 30.7
[2024-08-13 23:00] VITALS: BP 125/59
[2024-08-14] VITALS (10 sets, daily range): BP systolic 121–156; BP diastolic 65–92
[2024-08-14 01:19] LABS: Blood Urea Nitrogen 77 mg/dl (9-20); Calcium 4.9 mg/dl (8.4-10.2); Carbon Dioxide 24 mmol/L (22-30); Chloride 91 mmol/L (98-107); Estimated Creatinine Clearance 18 ml/min; Glucose 83 mg/dl (70-99); Potassium 4.5 mmol/L (3.5-5.1); Sodium 131 mmol/L (135-145)
--- NOTE | 2024-08-14 01:27 | W.PN.UPDATE ---
Update Note
Progress Note Update
corrected calcium 4.5, Calcium gluconate 2g IV order
Magnesium level 1.5, Mag sulfate IV 1 gram order
[2024-08-14] MEDS: CALCIUM GLUCONATE 100 IV ×2 (01:59→15:10)
[2024-08-14] MEDS: ROXICODONE 10 MG PO (02:06)
[2024-08-14] MEDS: MAGNESIUM SULFATE 102 GRAMS IV (02:59)
[2024-08-14] MEDS: DILAUDID 0.5 MG IV ×4 (03:00→17:51)
[2024-08-14 06:56] LABS: ALT (SGPT) 23 U/L (0-50); AST (SGOT) 40 U/L (17-59); Albumin 3.7 g/dl (3.5-5.0); Alkaline Phosphatase 388 U/L (38-126); Blood Urea Nitrogen 77 mg/dl (9-20); Calcium 5.2 mg/dl (8.4-10.2); Carbon Dioxide 25 mmol/L (22-30); Chloride 92 mmol/L (98-107); Estimated Creatinine Clearance 18 ml/min; Glucose 73 mg/dl (70-99); Magnesium 1.7 mg/dl (1.6-2.3); Potassium 4.6 mmol/L (3.5-5.1); Sodium 132 mmol/L (135-145); Total Bilirubin 0.5 mg/dl (0.2-1.3); Total Protein 6.2 g/dl (6.3-8.2); eGFR 13.12
[2024-08-14 07:04] LABS: Hematocrit 21.4 % (39.0-52.0); Mean Corp Hgb Conc. 32.7 g/dL (33.0-37.0); Mean Corpuscular Hgb 28.6 pg (27.0-31.0); Mean Corpuscular Volume 87.3 fL (80.0-94.0); Mean Platelet Volume 9.7 fL (7.4-10.4); Platelet Count 113 10^3/uL (130-400); Red Blood Cell Count 2.45 10^6/uL (4.70-6.10); Red Cell Dist. Width 13.3 % (11.5-14.5); White Blood Cell Count 3.2 10^3/uL (4.8-10.8)
[2024-08-14] MEDS: OXYCONTIN (CONTROLLED RELEASE) 20 MG PO ×3 (08:55→20:53)
[2024-08-14] MEDS: KLONOPIN 0.5 MG PO ×3 (08:56→20:57)
[2024-08-14] MEDS: CELLCEPT 500 MG PO ×3 (08:56→20:54)
[2024-08-14] MEDS: COREG 6.25 MG PO ×3 (08:56→20:53)
[2024-08-14] MEDS: ZOFRAN 4 MG IV (10:19)
[2024-08-14] MEDS: OSCAL CAL 500 1000 MG PO ×3 (10:22→23:07)
[2024-08-14] MEDS: ACTIGALL 300 MG PO ×3 (10:23→17:48)
[2024-08-14] MEDS: ROCALTROL 0.75 MCG PO ×2 (10:23→20:52)
[2024-08-14] MEDS: PHOSLO 1334 MG PO ×3 (10:24→17:49)
[2024-08-14] MEDS: DEMADEX 100 MG PO (10:24)
[2024-08-14] MEDS: MAG-TAB SR 84 MG PO (10:26)
--- NOTE | 2024-08-14 11:06 | W.PN.HOSP.TC ---
Today's Communication/Plan
-
Transfuse
Nephrology consult
Check phosphate level
Intact PTH
Nutrition consult
Assessment / Plan
Assessment / Plan
Gen-AAOx3, NAD
HEENT-NC, AT, anicteric, clear oral mm
Neck-supple
CV-reg, no M, +S1/S2
Lungs-clear B/L
Abd-soft, NT, ND
Ext-no edema
Musculoskeletal-no cyanosis, clubbing
Skin-warm and dry
Neuro-grossly non-focal
Psych-calm, cooperative
Hypocalcemia -suspect related to CKD 5, hyperphosphatemia, hypomagnesemia. Cannot rule out component of vitamin D deficiency. Cannot rule out pseudohypoparathyroidism. Has underlying secondary hyperparathyroidism due to CKD. PTH level noted to
be 383 in August 2023. Repeat pending.
Repeat calcium 5.2 this morning. Phosphorus pending. Magnesium improved.
Suspect electrolytes will correct with initiation of dialysis. Nephrology consulted.
Relatively asymptomatic from calcium standpoint.
Hypomagnesemia -improving.
Hyperphosphatemia -he takes PhosLo 1 tab 3 times daily at home. Will increase to 2 tabs 3 times daily. Low phosphate diet. Consult nutrition. He admits to drinking a lot of soda at home.
CKD 5 -not yet on hemodialysis. Consult nephrology. He does have a fistula in the left arm that did not take according to the patient. Known to Dr. Damian.
Bicarbonate is normal.
Hyponatremia -chronic.
History of liver transplant -continue immunosuppression.
Acute on chronic anemia -baseline chronic anemia due to chronic kidney disease. Hemoglobin down to 7.0. Will transfuse 1 unit of blood today. He was last transfused in February 2024. He denies bleeding. Does have dark stools chronically but is on
iron supplements.
Pancytopenia -unclear etiology, monitor for now.
Essential hypertension
Anxiety/depression
Chronic opioid dependence/chronic pain syndrome
Obesity due to excess calories
DNR
Anticipated Discharge: > 48 hours
Subjective/Interval History
-
Date of Service: August 14, 2024
Patient seen and examined. Complaining of fatigue.
Objective Data
-
Labs:
Laboratory Results
08/14/24 08/14/24
00:39 06:17
WBC 3.2 L
Hgb 7.0 L
Hct 21.4 L
Plt Count 113 L D
Sodium 131 L 132 L
Potassium 4.5 4.6
Chloride 91 L 92 L
Carbon Dioxide 24 25
BUN 77 H 77 H
Creatinine 4.9 H* 4.8 H*
Glucose 83 73
Calcium 4.9 L* 5.2 L*
Total Bilirubin 0.5
AST 40
ALT 23
Alkaline Phosphatase 388 H
Vital Signs:
Vital Signs
Temp Pulse Resp BP Pulse Ox
97.9 F 81 13 140/85 96
08/14/24 09:02 08/14/24 10:45 08/14/24 10:45 08/14/24 10:27 08/14/24 04:00
Review of Systems
-
History Source: Patient
All other systems: Reviewed and negative
[2024-08-14 11:14] LABS: Phosphorus 8.1 mg/dl (2.5-4.5)
--- NOTE | 2024-08-14 14:15 | W.CON.NEPH ---
Consultation
-
Date/Time Consultation Requested: August 14, 2024 at 10:30 AM
Date/Time Consultation Performed: August 14, 2024 at 1 PM
Requesting Provider: Dr. Maddox
Performing Provider: Dr. Jelani Roblero
Reason for Consultation: chronic kidney disease stage V and hypocalcemia
Medical History
-
Chief Complaint: hypocalcemia chronic kidney disease
History of Present Illness:
Patient is a 58 y/o male past medical history of liver transplant maintained on mycophenolate and tacrolimus, followed by Dr Muller, becky HTN, esophageal varices s/p banding, hx of SMV thrombus and portal vein thrombus, CKD V with baseline Cr of 3.5
(follows with Dr. Spears), subdural hematoma, seizure disorder . Of note, he underwent fistula placement on 02/12 which did not develop. He presents with cramping and severe hypocalcemia less than five.
Real certified rehabilitation counselor for management of electrolyte and maladies
Past Medical History
CKD stage 5 (~3.5) Followed by Dr. Spears
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
Subdural hematoma January 2023 status post thuan hole
Hypertension, multidrug
Seizure disorder on oxcarbazepine
Hypothyroidism with normal TSH
Chronic back pain
Chronic opioid dependence
Anxiety/depression
Chronic heart failure, type unknown
Inguinal herniorrhaphy
Former smoker
Daily marijuana
Anemia
Secondary hyperparathyroidism
Social History
Tobacco: Former Smoker
Alcohol: Former
Family History
no CKD
Allergies / Home Medications
Allergy/AdvReac Type Severity Reaction Status Date / Time
Fish Containing Products Allergy 'I get Verified 08/13/24 15:56
high'
morphine Allergy Itching Verified 08/13/24 15:56
rabeprazole [From Aciphex] Allergy Rash Verified 08/13/24 15:56
shellfish derived Allergy 'I get Verified 08/13/24 15:56
high'
tizanidine Allergy Unknown Verified 08/13/24 15:56
�Medication �Instructions �Recorded �Confirmed �Type
calcium carbonate 1,000 mg PO DAILY Supplement 03/07/23 08/13/24 History
carvedilol 6.25 mg tablet 6.25 mg PO Q12H Blood Pressure 03/07/23 08/13/24 History
clonazepam 0.5 mg tablet (Klonopin) 0.5 mg PO Q12H Mental 03/07/23 08/13/24 History
Health/Anxiety
mycophenolate mofetil 500 mg 500 mg PO Q12H ANTI-REJECTION 03/07/23 08/13/24 History
tablet (CellCept)
magnesium oxide 400 mg (241.3 mg 400 mg PO DAILY Electrolyte 09/05/23 08/13/24 History
magnesium) tablet Repletion
oxycodone 10 mg tablet 10 mg PO BID 09/05/23 08/13/24 History
oxycodone 20 mg tablet,crush 20 mg PO BID Pain 09/05/23 08/13/24 History
resistant,extended release 12 hr
(OxyContin)
tacrolimus 4 mg tablet,extended 12 mg PO DAILY ANTI-REJECTION 09/05/23 08/13/24 History
release 24 hr (Envarsus XR)
ursodiol 300 mg capsule 300 mg PO TID GALLSTONE PREVENTION 09/05/23 08/13/24 History
torsemide 100 mg tablet 100 mg PO DAILY 02/25/24 08/13/24 History
ferrous sulfate 325 mg (65 mg 325 mg PO DAILY 08/13/24 08/13/24 History
iron) tablet
Review of Systems
-
cramping no chest pain or shortness of breath
All other systems: Negative unless noted
Physical Exam
Vital Signs
Vital Signs
Temp Pulse Resp BP Pulse Ox
98.3 F 56 18 121/76 94
08/14/24 12:59 08/14/24 12:59 08/14/24 12:59 08/14/24 13:15 08/14/24 13:15
Lab Results
WBC 3.2 10^3/uL (4.8-10.8) L 08/14/24 06:17
RBC 2.45 10^6/uL (4.70-6.10) L 08/14/24 06:17
Hgb 7.0 g/dL (13.0-18.0) L 08/14/24 06:17
Hct 21.4 % (39.0-52.0) L 08/14/24 06:17
Plt Count 113 10^3/uL (130-400) L D 08/14/24 06:17
Sodium 132 mmol/L (135-145) L 08/14/24 06:17
Potassium 4.6 mmol/L (3.5-5.1) 08/14/24 06:17
Chloride 92 mmol/L (98-107) L 08/14/24 06:17
Carbon Dioxide 25 mmol/L (22-30) 08/14/24 06:17
BUN 77 mg/dl (9-20) H 08/14/24 06:17
Creatinine 4.8 mg/dL (0.7-1.3) H* 08/14/24 06:17
eGFR 13.12 08/14/24 06:17
Glucose 73 mg/dl (70-99) 08/14/24 06:17
Calcium 5.2 mg/dl (8.4-10.2) L* 08/14/24 06:17
Phosphorus 8.1 mg/dl (2.5-4.5) H 08/14/24 06:17
Albumin 3.7 g/dl (3.5-5.0) 08/14/24 06:17
Physical Exam
General no acute distress
HEENT no cephalic atraumatic extraocular muscle intact no scleral icterus no JVD neck supple
lungs clear to auscultation bilateral
heart regular S1-S2 positive
abdomen soft nontender positive bowel sounds
extremities no edema pulses present bilateral
Neurologically nonfocal alert and oriented x 3
Skin no lesions no abrasions no petechiae
Psych normal affect no bizarre behavior
Data Reviewed
-
Labs: Labs Reviewed by me
Assessment/Plan
-
Impression:
chronic kidney disease stage V with some mild acuity.
Hypocalcemia
Edema
Proteinuria
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
Subdural hematoma January 2023 status post thuan hole
Hypertension, multidrug
Seizure disorder on oxcarbazepine
Hypothyroidism with normal TSH
Chronic back pain
Chronic opioid dependence
Anxiety/depression
Chronic heart failure, type unknown:torsemide 60mg BID
Inguinal herniorrhaphy
Former smoker
Daily marijuana
Plan:
electrolyte abnormalities including hypocalcemia 4.7 and hyperphophotemia 8.1
my concern is he's not taking his medications as this is a secondary hyperparathyroidism the setting of chronic kidney disease.
Continue calcitriol 0.75 BID
I will increases calcium carbonate to 100x 3 times a day which are to be taken not with meals as this will work as a binder to phosphorus.
Continue calcium acetate TID.
PTH pending.
Creatinine elevated at 4.8 from 3.5 from last [facility]. Minimal change in GFR..
I will order another calcium gluconate rider
No acute need for dialysis at this time.
Total Time Spent with Patient (in minutes): 35
--- NOTE | 2024-08-14 16:10 | CM ---
Met with patient admitted from home . he lives with in [facility] [address] community. He is independent, drives. He has canes, walkers, shower seat and grab bars.
PCP Kody Arellano
Pharmacy: [facility] in [place]
He does not have prescription drug insurance.
Admitted with hypocalcemia. He does not need HD yet but may in future. He is planning to use nephrology and vascular physicians at if needed.
PLAN:home no needs at this time.
--- NOTE | 2024-08-14 17:10 | PTCARENOTE ---
Pt received via stretcher from the ED. Pt ambulated to bed w/ supervision. Pt's gait appears to be steady. Pt denies use of assistive device for ambulation. Pt oriented to new hospital environment, and instructed on plan of care. Pt verbalized
understanding of plan of care. Pt reports he lives each day with constant pain rating 7/10 on pain scale. Pt requesting Dilaudid IV. Will medicate for pain as ordered. Pt with what appears to be old healing boil on posterior left thigh, and reddened
scab on right side of his face. Pt noted to have scabbed scratches on b/l arms and legs. Otherwise skin intact. VSS, Pt is afebrile. Call flores is within reach.
[2024-08-14] MEDS: NON-FORMULARY ITEM PO (19:11)
[2024-08-15 03:37] VITALS: BP 157/82
[2024-08-15 06:00] VITALS: BMI 29.3
[2024-08-15] MEDS: DILAUDID 0.5 MG IV ×3 (06:04→15:45)
[2024-08-15 06:55] LABS: % Basophils 0.5 % (0-2); % Eosinophils 5.7 % (0-6); % Immature Granulocytes 0.5 % (0-0.5); % Lymphocytes 4.5 % (20.5-51.1); % Monocytes 10.9 % (1.7-9.3); % Neutrophils 77.9 % (42.2-75.2); Absolute Eosinophils 0.4 10^3/uL (0-0.7); Absolute Lymphocytes 0.3 10^3/uL (1.2-3.4); Absolute Monocytes 0.7 10^3/uL (0.1-0.6); Absolute Neutrophils 4.8 10^3/uL (1.4-6.5); Hematocrit 27.4 % (39.0-52.0); Mean Corp Hgb Conc. 32.8 g/dL (33.0-37.0); Mean Corpuscular Hgb 28.8 pg (27.0-31.0); Mean Corpuscular Volume 87.5 fL (80.0-94.0); Nucleated Red Blood Cells % 0 % (-); Platelet Count 178 10^3/uL (130-400); Red Blood Cell Count 3.13 10^6/uL (4.70-6.10); Red Cell Dist. Width 13.3 % (11.5-14.5); White Blood Cell Count 6.2 10^3/uL (4.8-10.8)
[2024-08-15 07:02] LABS: Blood Urea Nitrogen 75 mg/dl (9-20); Calcium 6.1 mg/dl (8.4-10.2); Carbon Dioxide 25 mmol/L (22-30); Chloride 90 mmol/L (98-107); Estimated Creatinine Clearance 17 ml/min; Glucose 86 mg/dl (70-99); Magnesium 1.9 mg/dl (1.6-2.3); Phosphorus 7.9 mg/dl (2.5-4.5); Potassium 5.3 mmol/L (3.5-5.1); Sodium 133 mmol/L (135-145); eGFR 14.17
[2024-08-15 07:12] VITALS: BP 153/98
[2024-08-15] MEDS: LOKELMA 10 GRAM PO (08:55)
[2024-08-15] MEDS: ACTIGALL 300 MG PO ×2 (08:59→11:17)
[2024-08-15] MEDS: PHOSLO PO ×2 (08:59→11:17)
[2024-08-15] MEDS: COREG 6.25 MG PO (09:00)
[2024-08-15] MEDS: OSCAL CAL 500 1000 MG PO ×2 (09:00→15:46)
[2024-08-15] MEDS: ROCALTROL 0.75 MCG PO (09:00)
[2024-08-15] MEDS: OXYCONTIN (CONTROLLED RELEASE) 20 MG PO (09:00)
[2024-08-15] MEDS: CELLCEPT 500 MG PO (09:00)
[2024-08-15] MEDS: KLONOPIN 0.5 MG PO (09:01)
[2024-08-15] MEDS: DEMADEX 100 MG PO (09:01)
[2024-08-15] MEDS: MAG-TAB SR 84 MG PO (09:02)
[2024-08-15] MEDS: NON-FORMULARY ITEM 12 MG PO (09:03)
--- NOTE | 2024-08-15 09:36 | W.PN.HOSP.TC ---
Today's Communication/Plan
-
Give a dose of Lokelma
Await nephrology input
Assessment / Plan
Assessment / Plan
Gen-AAOx3, NAD
HEENT-NC, AT, anicteric, clear oral mm
Neck-supple
CV-reg, no M, +S1/S2
Lungs-clear B/L
Abd-soft, NT, ND
Ext-no edema
Musculoskeletal-no cyanosis, clubbing
Skin-warm and dry
Neuro-grossly non-focal
Psych-calm, cooperative
Hypocalcemia -suspect related to CKD 5, hyperphosphatemia, hypomagnesemia. Cannot rule out component of vitamin D deficiency. Cannot rule out pseudohypoparathyroidism. Has underlying secondary hyperparathyroidism due to CKD. PTH level noted to
be 383 in August 2023. Repeat pending.
Calcium improving, 6.1.
Nephrology believes he is noncompliant with his home medications. Patient denies.
Hypomagnesemia -improving.
Hyperphosphatemia -he takes PhosLo 1 tab 3 times daily at home. Will increase to 2 tabs 3 times daily. Low phosphate diet. Consult nutrition. He admits to drinking a lot of soda at home. Possibly coming down.
Hyperkalemia -give a dose of Lokelma.
CKD 5 -not yet on hemodialysis. Consult nephrology. He does have a fistula in the left arm that did not take according to the patient. Known to Dr. Damian.
Bicarbonate is normal. Nephrology is not recommending initiation of dialysis yet.
Hyponatremia -chronic.
History of liver transplant -continue immunosuppression.
Acute on chronic anemia -baseline chronic anemia due to chronic kidney disease. He was last transfused in February 2024. He denies bleeding. Does have dark stools chronically but is on iron supplements. Hemoglobin improved to 9.0 after 1 unit PRBC
transfusion.
Pancytopenia -unclear etiology, monitor for now.
Essential hypertension -stable.
Anxiety/depression
Chronic opioid dependence/chronic pain syndrome
Obesity due to excess calories
DNR
Dispo -anticipate discharge today if okay with nephrology. Close outpatient follow-up. Medication compliance stressed.
Anticipated Discharge: Today
Subjective/Interval History
-
Date of Service: August 15, 2024
Patient seen and examined. No complaints.
Objective Data
-
Labs:
Laboratory Results
08/15/24
05:05
WBC 6.2
Hgb 9.0 L D
Hct 27.4 L
Plt Count 178 D
Sodium 133 L
Potassium 5.3 H
Chloride 90 L
Carbon Dioxide 25
BUN 75 H
Creatinine 4.5 H*
Glucose 86
Calcium 6.1 L*
Vital Signs:
Vital Signs
Temp Pulse Resp BP Pulse Ox
99.8 F 62 20 153/98 97
08/15/24 07:12 08/15/24 07:12 08/15/24 07:12 08/15/24 07:12 08/15/24 07:12
I&O
08/14/24 08/15/24 08/16/24
06:59 06:59 06:59
Intake Total 240 / 240
Balance 240 / 240
Review of Systems
-
History Source: Patient
All other systems: Reviewed and negative
[2024-08-15] MEDS: PHOSLO 1334 MG PO (11:14)
[2024-08-15 12:00] VITALS: BP 148/77
--- NOTE | 2024-08-15 13:54 | W.DS.TRANS ---
DC Summary - Order Editor
-
Discharge Instructions:
Discharge Diagnosis/Procedures Electrolyte abnormalities, chronic kidney
disease stage V
Diet 2 Gram Sodium
Additional Diets 2 Gram potassium diet, avoid sodas
Activity No restrictions
Driving Restrictions As prior to admission
Bathing Restrictions None
Blood Work BMP, CBC next week with your primary care doctor
Instructions:
Stand-Alone Forms:
Changes to Home Medications: No
Discharge Medications:
DC Medications w/original date entered in [facility]
carvedilol 6.25 mg tablet 6.25 mg PO Q12H Blood Pressure 03/07/23
clonazepam 0.5 mg tablet (Klonopin) 0.5 mg PO Q12H Mental Health/Anxiety 03/07/23
mycophenolate mofetil 500 mg tablet (CellCept) 500 mg PO Q12H ANTI-REJECTION 03/07/23
magnesium oxide 400 mg (241.3 mg magnesium) tablet 400 mg PO DAILY Electrolyte Repletion 09/05/23
oxycodone 10 mg tablet 10 mg PO BID 09/05/23
oxycodone 20 mg tablet,crush resistant,extended release 12 hr (OxyContin) 20 mg PO BID Pain 09/05/23
tacrolimus 4 mg tablet,extended release 24 hr (Envarsus XR) 12 mg PO DAILY ANTI-REJECTION 09/05/23
ursodiol 300 mg capsule 300 mg PO TID GALLSTONE PREVENTION 09/05/23
torsemide 100 mg tablet 100 mg PO DAILY 02/25/24
ferrous sulfate 325 mg (65 mg iron) tablet 325 mg PO DAILY 08/13/24
calcitriol 0.25 mcg capsule 0.75 mcg (3 x 0.25 mcg) PO BID #0 caps 08/15/24
calcium acetate 667 mg tablet 1,334 mg (2 x 667 mg) PO MEALS #0 tabs 08/15/24
calcium carbonate 1,000 mg (2 x 500 mg calcium (1,250 mg)) PO TID #180 tabs 08/15/24
Home Medication Changes
Pending Results: No
--- NOTE | 2024-08-15 14:04 | W.PN.NEPH.PH ---
Today's Communication / Plan
-
follow BMP
Assessment/Plan
-
Impression:
chronic kidney disease stage V with some mild acuity.
Hypocalcemia
Edema
Proteinuria
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
Subdural hematoma January 2023 status post thuan hole
Hypertension, multidrug
Seizure disorder on oxcarbazepine
Hypothyroidism with normal TSH
Chronic back pain
Chronic opioid dependence
Anxiety/depression
Chronic heart failure, type unknown:torsemide 60mg BID
Inguinal herniorrhaphy
Former smoker
Daily marijuana
Plan:
Continue calcitriol 0.75 BID
continue calcium carbonate to 100x 3 times a day which are to be taken not with meals as this will work as a binder to phosphorus.
Continue calcium acetate TID with meals
PTH pending.
Creatinine elevated at 4.8 from 3.5 from [facility]. Minimal change in GFR..
no emergent HD needs
he says that was supposed to see vascular surgery here for AVG options siince his last vascular surgeon said that another ANF would not work and that practice is also no longer in existence
-
-
Date of Service: August 15, 2024
CC / HPI / ROS
-
Chief Complaint:
hypocalcemia
History of Present Illness:
Calcium up to 6.1
K up at 5.3
Na low stable 133
VICKEY/Cr down to 4.5
Review of Systems:
still with hand pain
no CP/SOB
Labs
-
Labs:
WBC 6.2 10^3/uL (4.8-10.8) 08/15/24 05:05
RBC 3.13 10^6/uL (4.70-6.10) L 08/15/24 05:05
Hgb 9.0 g/dL (13.0-18.0) L D 08/15/24 05:05
Hct 27.4 % (39.0-52.0) L 08/15/24 05:05
Plt Count 178 10^3/uL (130-400) D 08/15/24 05:05
Sodium 133 mmol/L (135-145) L 08/15/24 05:05
Potassium 5.3 mmol/L (3.5-5.1) H 08/15/24 05:05
Chloride 90 mmol/L (98-107) L 08/15/24 05:05
Carbon Dioxide 25 mmol/L (22-30) 08/15/24 05:05
BUN 75 mg/dl (9-20) H 08/15/24 05:05
Creatinine 4.5 mg/dL (0.7-1.3) H* 08/15/24 05:05
eGFR 14.17 08/15/24 05:05
Glucose 86 mg/dl (70-99) 08/15/24 05:05
Calcium 6.1 mg/dl (8.4-10.2) L* 08/15/24 05:05
Phosphorus 7.9 mg/dl (2.5-4.5) H 08/15/24 05:05
Albumin 3.7 g/dl (3.5-5.0) 08/14/24 06:17
Physical Exam
-
Vital Signs:
Vital Signs
Temp Pulse Resp BP Pulse Ox
98.1 F 60 18 148/77 97
08/15/24 12:00 08/15/24 12:00 08/15/24 12:00 08/15/24 12:00 08/15/24 12:00
Cardiovascular:: Regular rate and rhythm
Respiratory:: Bilateral: CTA
Lung Excursion:: Normal
Abdomen:: Nontender and Soft
Bowel Sounds:: Normal
Extremity Edema:: None: Bilateral:
--- NOTE | 2024-08-15 14:16 | CM ---
Pt for discharge today
Reports has ride home
Given IMM
Plan - home no needs
[2024-08-15 15:49] VITALS: BP 152/76
--- NOTE | 2024-08-15 17:26 | PTCARENOTE ---
Rn [employer] farm hand discharge instructions provided to patient. No Iv access note on patients.
[2024-08-16 09:58] LABS: Intact PTH 505.4 pg/ml (13.6-85.8)
== END 2024-08-15 17:38 | disposition home or self-care (01) | DRG 641 ==
LOC: 2 SOUTH 20:07
PROVIDERS: Nurse Practitioner; ADMITTING PHYSICIAN Internal Medicine; ATTENDING PHYSICIAN Hospitalist; CONSULT PHYSICIAN Internal Medicine Nephrology; EMERGENCY PHYSICIAN Student in an Organized Health Care Education/Training Program; FAMILY PHYSICIAN Internal Medicine
PROC: 30233N1 Transfusion of Nonautologous Red Blood Cells into Peripheral Vein, Percutaneous Approach (ICD-10-PCS; 2024-08-14)
DX: E83.51 Hypocalcemia (principal); N18.5 Chronic kidney disease, stage 5; D61.818 Other pancytopenia; E87.1 Hypo-osmolality and hyponatremia; Z94.4 Liver transplant status; I13.2 Hypertensive heart and chronic kidney disease with heart failure and with stage 5 chronic kidney disease, or end stage renal disease; F11.20 Opioid dependence, uncomplicated; N25.81 Secondary hyperparathyroidism of renal origin; D84.821 Immunodeficiency due to drugs; K76.6 Portal hypertension; E83.39 Other disorders of phosphorus metabolism; E83.42 Hypomagnesemia; E87.5 Hyperkalemia; D64.9 Anemia, unspecified; Z91.148 Patient's other noncompliance with medication regimen for other reason; I50.9 Heart failure, unspecified; F41.9 Anxiety disorder, unspecified; F32.A Depression, unspecified; Z90.49 Acquired absence of other specified parts of digestive tract; Z87.891 Personal history of nicotine dependence; Z88.5 Allergy status to narcotic agent; E03.9 Hypothyroidism, unspecified; G40.909 Epilepsy, unspecified, not intractable, without status epilepticus; G89.29 Other chronic pain; F12.90 Cannabis use, unspecified, uncomplicated; Z79.624 Long term (current) use of inhibitors of nucleotide synthesis; E66.09 Other obesity due to excess calories; Z68.29 Body mass index [BMI] 29.0-29.9, adult; Z66 Do not resuscitate
CPT/HCPCS: 80048; 80053; 82310; 83735; 83970; 84100; 85025; 85027; 86850; 86900; 86901; 86920; 93005; 96361; 96374; 96375; 99284; P9058